=== PATIENT | female | born 1950 | race Caucasian/White ===

== ENCOUNTER 2019-04-15 12:34 | Emergency (ER) | payer OTHER ==
--- NOTE | 2019-04-15 13:53 | RAD REPORT ---
EXAM DESCRIPTION: RAD - Hand Right 2 View - 04/15/2019 1:33 pm CLINICAL HISTORY: Right hand pain FINDINGS: No fracture or dislocation is seen. Limited two view series. No bony destructive lesion
[2019-04-15] MEDS ORDERED: CLINDAMYCIN 900MG/D5W 900 MG/50 ML IVPB IV ONE (13:55)
[2019-04-15] MEDS ORDERED: KETOROLAC 30 MG/ML INJ ONE (13:55)
[2019-04-15] MEDS ORDERED: CEFAZOLIN/SWI 1gm 1 GM/10 ML SYR ONE (13:56)
[2019-04-15 14:09] LABS: Absolute Lymphocytes (CBC) 1.3 K/uL (0.7-4.9); Basophils % 0.5 % (0-1.3); Eosinophils % 1.9 % (0-4.4); Hematocrit 41.4 % (36.0-45.0); MPV 10.9 fL (7.6-11.3); Monocytes % 5.8 % (3.3-12.3); RBC Red Blood Cell Count 4.76 M/uL (3.86-4.86)
[2019-04-15] MEDS ORDERED: CEPHALEXIN 250 MG CAP ONE (14:10)
[2019-04-15 14:18] LABS: Albumin 3.2 g/dL (3.4-5.0); Bilirubin Total 0.3 mg/dL (0.2-1.0); Potassium 4.5 mmol/L (3.5-5.1); Protein, Total 7.4 g/dL (6.4-8.2)
--- NOTE | 2019-04-15 15:11 | EDPHYS ---
Physician Documentation [facility] Name: Nikkie Ferrera Age: 68 yrs Sex: Female : 1950 Arrival Date: 04/15/2019 Time: 12:37 Bed 23 Private MD: ED Physician Andrez Becerra HPI: 04/15 13:16 This 68 yrs old Female presents to ER via Ambulatory with complaints of Hand parviz Swelling. 13:16 The patient or guardian reports decreased range of motion, pain, swelling, tenderness. parviz The complaints affect the MCP of right middle finger. Context: The problem was sustained at an unknown location. Onset: The symptoms/episode began/occurred 3 day(s) ago. Associated signs and symptoms: The patient has no apparent associated signs or symptoms. Severity of symptoms: At their worst the symptoms were mild, moderate, in the emergency department the symptoms are unchanged. Historical: - Allergies: 12:48 Lidocaine; aa5 12:48 PENICILLINS; aa5 12:48 Sulfa (Sulfonamide Antibiotics); aa5 12:48 Codeine; aa5 12:48 Morphine; aa5 - Home Meds: 14:11 Novolin N 100 unit/mL Sub-Q susp [Active]; Novolin R Sub-Q [Active]; amiodarone 100 mg ca1 Oral tab 1 tab once daily [Active]; amlodipine 5 mg tab 1 tab once daily [Active]; losartan 100 mg oral tab 1 tab once daily [Active]; furosemide 80 mg Oral tab 1 tab 2 times per day [Active]; losartan 50 mg oral tab 1 tab once daily [Active]; Xarelto 20 mg oral tab 1 tab once daily [Active]; levothyroxine 25 mcg tab 1 tab once daily [Active]; 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 Thyroid 60 mg oral tab twice a day [Active]; gabapentin 100 mg oral cap 2 caps twice a day [Active]; meclizine 25 mg Oral tab 1 tab 3 times per day for Vertigo [Active]; 14:29 Metalazone 2.5 mg 4 tabs in AM for urinary retention [Active]; montelukast 10 mg oral ca1 tab 1 tab once daily [Active]; benzonatate 100 mg oral cap 1 cap 3 times per day for Cough [Active]; ibuprofen 800 mg Oral tab as needed [Active]; fluconazole 200 mg Oral tab 1 tab as needed [Active]; aspirin 81 mg Oral TbEC 1 tab once daily [Active]; magnesium oxide 400 mg Oral tab twice a day [Active]; Vitamin B-12 1,000 mcg Oral tab [Active]; Vitamin B-6 Oral [Active]; Vitamin D3 500 units daily [Active]; Tom5 - Calcium 750mg three times a day [Active]; - PMHx: 12:48 Diabetes - IDDM; Atrial Fib; CHF; Thyroid problem; neuropathy; Hypertension; aa5 - Immunization history:: Adult Immunizations up to date. - Social history:: Smoking status: Patient/guardian denies using tobacco. - Ebola Screening: : No symptoms or risks identified at this time. - Family history:: not pertinent. ROS: 13:16 Constitutional: Negative for fever, chills, and weight loss, Eyes: Negative for injury, parviz pain, redness, and discharge, ENT: Negative for injury, pain, and discharge, Neck: Negative for injury, pain, and swelling, Cardiovascular: Negative for chest pain, palpitations, and edema, Respiratory: Negative for shortness of breath, cough, wheezing, and pleuritic chest pain, Abdomen/GI: Negative for abdominal pain, nausea, vomiting, diarrhea, and constipation, Back: Negative for injury and pain, : Negative for injury, bleeding, discharge, and swelling, Skin: Negative for injury, rash, and discoloration, Neuro: Negative for headache, weakness, numbness, tingling, and seizure, Psych: Negative for depression, anxiety, suicide ideation, homicidal ideation, and hallucinations, Allergy/Immunology: Negative for hives, rash, and allergies, Endocrine: Negative for neck swelling, polydipsia, polyuria, polyphagia, and marked weight changes, Hematologic/Lymphatic: Negative for swollen nodes, abnormal bleeding, and unusual bruising. 13:16 MS/extremity: Positive for decreased range of motion, erythema, pain, swelling, tenderness, of the dorsal aspect of proximal phalanx of right middle finger and dorsum of right hand. Exam: 13:16 Constitutional: This is a well developed, well nourished patient who is awake, alert, parviz and in no acute distress. Head/Face: Normocephalic, atraumatic. Eyes: Pupils equal round and reactive to light, extra-ocular motions intact. Lids and lashes normal. Conjunctiva and sclera are non-icteric and not injected. Cornea within normal limits. Periorbital areas with no swelling, redness, or edema. ENT: Nares patent. No nasal discharge, no septal abnormalities noted. Tympanic membranes are normal and external auditory canals are clear. Oropharynx with no redness, swelling, or masses, exudates, or evidence of obstruction, uvula midline. Mucous membranes moist. Neck: Trachea midline, no thyromegaly or masses palpated, and no cervical lymphadenopathy. Supple, full range of motion without nuchal rigidity, or vertebral point tenderness. No Meningismus. Chest/axilla: Normal chest wall appearance and motion. Nontender with no deformity. No lesions are appreciated. Cardiovascular: Regular rate and rhythm with a normal S1 and S2. No gallops, murmurs, or rubs. Normal PMI, no JVD. No pulse deficits. Respiratory: Lungs have equal breath sounds bilaterally, clear to auscultation and percussion. No rales, rhonchi or wheezes noted. No increased work of breathing, no retractions or nasal flaring. Abdomen/GI: Soft, non-tender, with normal bowel sounds. No distension or tympany. No guarding or rebound. No evidence of tenderness throughout. Back: No spinal tenderness. No costovertebral tenderness. Full range of motion. Neuro: Awake and alert, GCS 15, oriented to person, place, time, and situation. Cranial nerves II-XII grossly intact. Motor strength 5/5 in all extremities. Sensory grossly intact. Cerebellar exam normal. Normal gait. Psych: Awake, alert, with orientation to person, place and time. Behavior, mood, and affect are within normal limits. 13:16 Musculoskeletal/extremity: ROM: limited active range of motion, limited passive range of motion, limited active range of motion due to pain, limited passive range of motion due to pain, Circulation is intact in all extremities. Compartment Syndrome exam of affected extremity: is normal. Joints: limited range of motion, pain at rest, painful range of motion, swelling, tenderness. Vital Signs: 12:48 BP 207 / 82; Pulse 63; Resp 16 S; Temp 97.7(O); Pulse Ox 96% on R/A; Weight 161.03 kg aa5 (R); Height 5 ft. 8 in. (172.72 cm) (R); Pain 8/10; 13:52 BP 162 / 60; Pulse 52; Resp 18 S; Pulse Ox 95% on R/A; ca1 14:21 BP 158 / 56; Pulse 51; Resp 17 S; Pulse Ox 95% on R/A; ca1 15:30 BP 161 / 54; Pulse 54; Resp 17 S; Temp 98(O); Pulse Ox 95% on R/A; ca1 12:48 Body Mass Index 53.98 (161.03 kg, 172.72 cm) aa5 MDM: 12:50 Patient medically screened. [facility] 04/15 13:16 Order name: CBC with Diff; Complete Time: 15:05 [facility] 04/15 13:16 Order name: Comprehensive Metabolic Panel; Complete Time: 15:05 [facility] 04/15 13:16 Order name: Sed Rate; Complete Time: 15:05 [facility] 04/15 13:16 Order name: Hand Right 2 View XRAY; Complete Time: 15:05 [facility] 04/15 13:16 Order name: Ice pack; Complete Time: 13:40 [facility] 04/15 13:34 Order name: IV Saline Lock; Complete Time: 13:34 ca1 Administered Medications: 13:40 Drug: TORadol 30 mg Route: IVP; Site: left antecubital; ca1 15:00 Follow up: Response: No adverse reaction ca1 13:45 Drug: Ancef 1 grams Route: IVPB; Site: left antecubital; ca1 15:00 Follow up: Response: No adverse reaction; IV Status: Completed infusion ca1 13:51 Drug: Clindamycin 900 mg Route: IVPB; Infused Over: 30 mins; Site: left antecubital; ca1 14:20 Follow up: Response: No adverse reaction; IV Status: Completed infusion ca1 13:56 Drug: KeFLEX 500 mg Route: PO; ca1 15:00 Follow up: Response: No adverse reaction ca1 15:00 Follow up: Response: No adverse reaction ca1 Disposition: 04/15/19 15:11 Discharged to Home. Impression: Cellulitis and acute lymphangitis of other parts of limb, Lymphangitis - ascending, Type 1 diabetes mellitus. - Condition is Fair. - Discharge Instructions: Cellulitis, Adult, [id number], Lymphangitis, Adult. - Prescriptions for Clindamycin HCl 300 mg Oral Capsule - take 1 capsule by ORAL route every 6 hours for 7 days; 28 capsule. Keflex 500 mg Oral Capsule - take 1 capsule by ORAL route every 6 hours for 7 days; 28 capsule. Motrin IB 200 mg Oral Tablet - take 1 tablet by ORAL route every 6 hours As needed as needed with food; 20 tablet. - Medication Reconciliation Form, Thank You Letter, Antibiotic Education, Prescription Opioid Use form. - Follow up: Private Physician; When: 2 - 3 days; Reason: Recheck today's complaints, Continuance of care, Re-evaluation by your physician. Follow up: Shiva Perez; When: 2 - 3 days; Reason: Recheck today's complaints, Continuance of care, Re-evaluation by your physician. - Problem is new. - Symptoms have improved. Signatures: Dispatcher [employer] EDMS Andrez Becerra MD MD cha Calderon, Audri RN RN aa5 Alexsandra Sequeira RN RN ca1 Corrections: (The following items were deleted from the chart) 15:42 15:11 04/15/2019 15:11 Discharged to Home. Impression: Cellulitis and acute ca1 lymphangitis of other parts of limb; Lymphangitis - ascending; Type 1 diabetes mellitus. Condition is Fair. Discharge Instructions: Cellulitis, Adult, [id number], Lymphangitis, Adult. Prescriptions for Clindamycin HCl 300 mg Oral Capsule - take 1 capsule by ORAL route every 6 hours for 7 days; 28 capsule, Keflex 500 mg Oral Capsule - take 1 capsule by ORAL route every 6 hours for 7 days; 28 capsule, Motrin IB 200 mg Oral Tablet - take 1 tablet by ORAL route every 6 hours As needed as needed with food; 20 tablet. and Forms are Medication Reconciliation Form, Thank You Letter, Antibiotic Education, Prescription Opioid Use. Follow up: Private Physician; When: 2 - 3 days; Reason: Recheck today's complaints, Continuance of care, Re-evaluation by your physician. Follow up: Shiva Perez; When: 2 - 3 days; Reason: Recheck today's complaints, Continuance of care, Re-evaluation by your physician. Problem is new. Symptoms have improved. parviz
--- NOTE | 2019-04-15 15:11 | ER ---
Nurse's Notes [facility] Name: Nikkie Ferrera Age: 68 yrs Sex: Female : 1950 Arrival Date: 04/15/2019 Time: 12:37 Bed 23 Private MD: Diagnosis: Cellulitis and acute lymphangitis of other parts of limb;Lymphangitis-ascending;Type 1 diabetes mellitus Presentation: 04/15 12:45 Presenting complaint: Patient states: "my right hand is swollen and red since aa5 yesterday". Transition of care: patient was not received from another setting of care. Onset of symptoms was April 2019. Risk Assessment: Do you want to hurt yourself or someone else? Patient reports no desire to harm self or others. Initial Sepsis Screen: Does the patient meet any 2 criteria? No. Patient's initial sepsis screen is negative. Does the patient have a suspected source of infection? No. Patient's initial sepsis screen is negative. Care prior to arrival: None. 12:45 Method Of Arrival: Ambulatory aa5 12:45 Acuity: KRISTIAN 3 aa5 Historical: - Allergies: 12:48 Lidocaine; aa5 12:48 PENICILLINS; aa5 12:48 Sulfa (Sulfonamide Antibiotics); aa5 12:48 Codeine; aa5 12:48 Morphine; aa5 - Home Meds: 14:11 Novolin N 100 unit/mL Sub-Q susp [Active]; Novolin R Sub-Q [Active]; amiodarone 100 mg ca1 Oral tab 1 tab once daily [Active]; amlodipine 5 mg tab 1 tab once daily [Active]; losartan 100 mg oral tab 1 tab once daily [Active]; furosemide 80 mg Oral tab 1 tab 2 times per day [Active]; losartan 50 mg oral tab 1 tab once daily [Active]; Xarelto 20 mg oral tab 1 tab once daily [Active]; levothyroxine 25 mcg tab 1 tab once daily [Active]; 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 oral tab twice a day [Active]; gabapentin 100 mg oral cap 2 caps twice a day [Active]; meclizine 25 mg Oral tab 1 tab 3 times per day for Vertigo [Active]; 14:29 Metalazone 2.5 mg 4 tabs in AM for urinary retention [Active]; montelukast 10 mg oral ca1 tab 1 tab once daily [Active]; benzonatate 100 mg oral cap 1 cap 3 times per day for Cough [Active]; ibuprofen 800 mg Oral tab as needed [Active]; fluconazole 200 mg Oral tab 1 tab as needed [Active]; aspirin 81 mg Oral TbEC 1 tab once daily [Active]; magnesium oxide 400 mg Oral tab twice a day [Active]; Vitamin B-12 1,000 mcg Oral tab [Active]; Vitamin B-6 Oral [Active]; Vitamin D3 500 units daily [Active]; Tom5 - Calcium 750mg three times a day [Active]; - PMHx: 12:48 Diabetes - IDDM; Atrial Fib; CHF; Thyroid problem; neuropathy; Hypertension; aa5 - Immunization history:: Adult Immunizations up to date. - Social history:: Smoking status: Patient/guardian denies using tobacco. - Ebola Screening: : No symptoms or risks identified at this time. - Family history:: not pertinent. Screenin:56 Abuse screen: Denies threats or abuse. Denies injuries from another. Nutritional ca1 screening: No deficits noted. Tuberculosis screening: No symptoms or risk factors identified. Fall Risk Ambulatory Aid- Crutches/Cane/Walker (15 pts). Gait- Impaired (20 pts.). Assessment: 12:56 General: Appears in no apparent distress. comfortable, Behavior is calm, cooperative, ca1 appropriate for age. Pain: Complains of pain in right hand Pain radiates to right arm Pain currently is 7 out of 10 on a pain scale. Pain began 1 day ago. Is intermittent, Aggravated by increased activity, repositioning. Neuro: Level of Consciousness is awake, alert, obeys commands, Oriented to person, place, time, situation. Cardiovascular: Heart tones S1 S2 present Capillary refill < 3 seconds Patient's skin is warm and dry. Respiratory: Airway is patent Respiratory effort is even, unlabored, Respiratory pattern is regular, symmetrical, Breath sounds are clear bilaterally. GI: Abdomen is round non-distended, Bowel sounds present X 4 quads. Abd is soft and non tender X 4 quads. : No deficits noted. No signs and/or symptoms were reported regarding the genitourinary system. EENT: No deficits noted. No signs and/or symptoms were reported regarding the EENT system. Derm: Skin is intact, is healthy with good turgor, Skin is pink, warm \\T\\ dry. Musculoskeletal: Circulation, motion, and sensation intact. Capillary refill < 3 seconds, Range of motion: limited in right wrist, MCP of right index finger, MCP of right middle finger, MCP of right ring finger and MCP of right little finger Swelling present in right hand. 13:52 Reassessment: Patient appears in no apparent distress at this time. Patient and/or ca1 family updated on plan of care and expected duration. Pain level reassessed. Patient is alert, oriented x 3, equal unlabored respirations, skin warm/dry/pink. 14:50 Reassessment: Patient appears in no apparent distress at this time. Patient and/or ca1 family updated on plan of care and expected duration. Pain level reassessed. Patient is alert, oriented x 3, equal unlabored respirations, skin warm/dry/pink. 15:30 Reassessment: Patient appears in no apparent distress at this time. Patient is alert, ca1 oriented x 3, equal unlabored respirations, skin warm/dry/pink. Vital Signs: 12:48 BP 207 / 82; Pulse 63; Resp 16 S; Temp 97.7(O); Pulse Ox 96% on R/A; Weight 161.03 kg aa5 (R); Height 5 ft. 8 in. (172.72 cm) (R); Pain 8/10; 13:52 BP 162 / 60; Pulse 52; Resp 18 S; Pulse Ox 95% on R/A; ca1 14:21 BP 158 / 56; Pulse 51; Resp 17 S; Pulse Ox 95% on R/A; ca1 15:30 BP 161 / 54; Pulse 54; Resp 17 S; Temp 98(O); Pulse Ox 95% on R/A; ca1 12:48 Body Mass Index 53.98 (161.03 kg, 172.72 cm) aa5 ED Course: 12:37 Patient arrived in ED. as 12:45 Arm band placed on. aa5 12:46 Triage completed. aa5 12:50 Alexsandra Sequeira RN is Primary Nurse. ca1 12:50 Andrez Becerra MD is Attending Physician. [facility] 12:56 Patient has correct armband on for positive identification. Bed in low position. Call ca1 light in reach. Side rails up X 1. Pulse ox on. NIBP on. 12:56 No provider procedures requiring assistance completed. ca1 13:30 Hand Right 2 View XRAY In Process Unspecified. EDMS 13:39 Initial lab(s) drawn, by me, sent to lab. Inserted saline lock: 20 gauge in left lt1 antecubital area, using aseptic technique. 15:10 Shiva Perez MD is Referral Physician. parviz 15:30 IV discontinued, intact, bleeding controlled, No redness/swelling at site. Pressure ca1 dressing applied. Administered Medications: 13:40 Drug: TORadol 30 mg Route: IVP; Site: left antecubital; ca1 15:00 Follow up: Response: No adverse reaction ca1 13:45 Drug: Ancef 1 grams Route: IVPB; Site: left antecubital; ca1 15:00 Follow up: Response: No adverse reaction; IV Status: Completed infusion ca1 13:51 Drug: Clindamycin 900 mg Route: IVPB; Infused Over: 30 mins; Site: left antecubital; ca1 14:20 Follow up: Response: No adverse reaction; IV Status: Completed infusion ca1 13:56 Drug: KeFLEX 500 mg Route: PO; ca1 15:00 Follow up: Response: No adverse reaction ca1 15:00 Follow up: Response: No adverse reaction ca1 Outcome: 15:11 Discharge ordered by . parviz 15:30 Discharged to home via wheelchair, with family. ca1 15:30 Condition: stable 15:30 Discharge instructions given to patient, Instructed on discharge instructions, follow up and referral plans. medication usage, Demonstrated understanding of instructions, follow-up care, medications, Prescriptions given X 3. 15:42 Patient left the ED. ca1 Signatures: Dispatcher [employer] EDNC Andrez Becerra MD MD cha Martinez, Amelia as Calderon, Audri, RN RN aa5 Alexsandra Sequeira RN RN ca1 Lopez, Kemi lt
[2019-04-15 16:32] VITALS: O2SAT 95
[2019-04-15 16:34] VITALS: BP 161/54; TEMP 98
== END 2019-04-15 15:42 | disposition home or self-care (01) ==
LOC: ER 12:34
DX: L03.113 Cellulitis of right upper limb (principal); L03.123 Acute lymphangitis of right upper limb; E10.9 Type 1 diabetes mellitus without complications; I10 Essential (primary) hypertension; I48.91 Unspecified atrial fibrillation; E07.9 Disorder of thyroid, unspecified; I50.9 Heart failure, unspecified; Z79.01 Long term (current) use of anticoagulants; Z79.82 Long term (current) use of aspirin; Z79.4 Long term (current) use of insulin
CPT/HCPCS: 96365; 85025; 36415; 85652; 80053; 73120; 96375; 99284; J0690

== ENCOUNTER 2019-11-07 05:50 | Emergency (ER) | payer OTHER ==
[2019-11-07] MEDS ORDERED: ONDANSETRON 4 MG (ODT) TAB ONE (06:16)
[2019-11-07] MEDS ORDERED: TRAMADOL HCL 50 MG TAB ONE (06:17)
[2019-11-07 06:52] LABS: Absolute Lymphocytes (CBC) 0.9 K/uL (0.7-4.9); Basophils % 0.3 % (0-1.3); Hematocrit 41.1 % (36.0-45.0); Lymphocytes % 8.1 % (15.3-44.8); MPV 11.6 fL (7.6-11.3)
[2019-11-07] MEDS ORDERED: KETOROLAC 30 MG/ML INJ ONE (06:53)
[2019-11-07 07:06] LABS: Potassium 4.4 mmol/L (3.5-5.1)
--- NOTE | 2019-11-07 08:05 | ER ---
Nurse's Notes [facility] Name: Nikkie Ferrera Age: 69 yrs Sex: Female : 1950 Arrival Date: 11/07/2019 Time: 05:50 Bed 5 Private MD: Diagnosis: Pain in left arm;Local infection of the skin and subcutaneous tissue, unspecified Presentation: 11/07 05:56 Presenting complaint: EMS states: Called for pain to left arm; Patient had second lp1 Shingles vaccine on Friday, since then the pain has been worsening; States pain is now radiating to left forearm and left hand. Transition of care: patient was not received from another setting of care. Onset of symptoms was November 07, 2019. Risk Assessment: Do you want to hurt yourself or someone else? Patient reports no desire to harm self or others. Initial Sepsis Screen: Does the patient meet any 2 criteria? No. Patient's initial sepsis screen is negative. Does the patient have a suspected source of infection? No. Patient's initial sepsis screen is negative. Care prior to arrival: Glucose check: 259. 05:56 Method Of Arrival: EMS: [facility] lp1 05:56 Acuity: KRISTIAN 3 fc Historical: - Allergies: 06:06 PENICILLINS; lp1 06:06 Lidocaine; lp1 06:06 Iodinated Contrast Media - IV Dye; lp1 06:06 Sulfa (Sulfonamide Antibiotics); lp1 06:06 Morphine; lp1 06:06 Codeine; lp1 - Home Meds: 06:06 Novolin N 100 unit/mL Sub-Q susp [Active]; Novolog 100 unit/mL Sub-Q soln [Active]; lp1 amiodarone 100 mg Oral tab 1 tab once daily [Active]; amlodipine 5 mg tab 1 tab once daily [Active]; losartan 100 mg Oral tab 1 tab once daily [Active]; furosemide 80 mg Oral tab 1 tab 2 times per day [Active]; lovastatin 20 mg Oral tab 1 tab once daily [Active]; Xarelto 20 mg Oral tab 1 tab once daily [Active]; levothyroxine 25 mcg tab 1 tab once daily [Active]; 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 60 mg Oral tab twice a day [Active]; gabapentin 100 mg Oral cap 2 caps twice a day [Active]; meclizine 25 mg Oral tab 1 tab 3 times per day for Vertigo [Active]; Metalazone 2.5 mg 4 tabs IN AM for urinary retention [Active]; montelukast 10 mg Oral tab 1 tab once daily [Active]; benzonatate 100 mg Oral cap 1 cap 3 times per day for Cough [Active]; fluconazole 200 mg Oral tab 1 tab as needed [Active]; aspirin 81 mg Oral TbEC 1 tab once daily [Active]; magnesium oxide 400 mg Oral tab twice a day [Active]; Vitamin B-6 Oral [Active]; Vitamin B-12 1,000 mcg Oral tab daily [Active]; Vitamin D3 5,000 unit oral tab daily [Active]; - PMHx: 06:06 Atrial Fib; Diabetes - IDDM; Cellulitis; CHF; Thyroid problem; Hypertension; lp1 neuropathy; Diabetic retinopathy; - PSHx: 06:06 Cholecystectomy; Cataracts surgery; Tonsillectomy; Jaw surgery; lp1 - Immunization history:: Adult Immunizations up to date. - Coronavirus screen:: The patient has NOT traveled to [place], [place], or [place] in the past 14 days. The patient has NOT had contact with known/suspected case of Coronavirus?. - Social history:: Smoking status: Patient denies any tobacco usage or history of. - Ebola Screening: : No symptoms or risks identified at this time. Screenin:04 Abuse screen: Denies threats or abuse. Denies injuries from another. Nutritional rv screening: No deficits noted. Tuberculosis screening: No symptoms or risk factors identified. Fall Risk None identified. Assessment: 06:03 General: Appears in no apparent distress. Pain: Complains of pain in left arm. Neuro: rv Level of Consciousness is awake, alert, obeys commands, Oriented to person, place, time, situation. Cardiovascular: Patient's skin is warm and dry. Respiratory: Airway is patent. Derm: Skin is intact. Musculoskeletal: Swelling absent Reports pain in left arm ,LEFT UPPER ARM IS WARM TO TOUCH. 07:00 Reassessment: Patient appears in no apparent distress at this time. No changes from jl7 previously documented assessment. Patient and/or family updated on plan of care and expected duration. Pain level reassessed. Patient is alert, oriented x 3, equal unlabored respirations, skin warm/dry/pink. 08:00 Reassessment: Patient appears in no apparent distress at this time. Patient and/or jl7 family updated on plan of care and expected duration. Pain level reassessed. Patient is alert, oriented x 3, equal unlabored respirations, skin warm/dry/pink. pain decreased to a 6 or 7/10 now Patient states feeling better. Patient states symptoms have improved. Vital Signs: 05:58 BP 141 / 66; Pulse 73; Resp 20; Temp 99.6(O); Pulse Ox 100% on R/A; Weight 156.49 kg lp1 (R); Height 5 ft. 8 in. (172.72 cm); Pain 9/10; 08:00 BP 139 / 68; Pulse 73; Resp 16 S; Pulse Ox 100% on R/A; jl7 05:58 Body Mass Index 52.46 (156.49 kg, 172.72 cm) lp1 ED Course: 05:50 Patient arrived in ED. ds1 05:57 Triage completed. lp1 05:58 Arm band placed on. lp1 06:03 Rob Arora RN is Primary Nurse. rv 06:04 Patient has correct armband on for positive identification. Pulse ox on. NIBP on. rv 06:12 Tiffanie Meza FNP-C is PHCP. kb 06:12 Hesham Bone MD is Attending Physician. kb 06:35 Inserted saline lock: 20 gauge in right antecubital area, using aseptic technique. rv Blood collected. 06:35 First set of blood cultures drawn by me. rv 08:04 Ultrasound completed. Patient tolerated well. 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 sg3 08:08 US Extremity Venous Unilateral Ltd In Process Unspecified. EDMS 08:18 Sling applied to left arm. jl7 08:22 No provider procedures requiring assistance completed. IV discontinued, intact, jl7 bleeding controlled, No redness/swelling at site. Pressure dressing applied. Administered Medications: 06:15 Drug: Zofran 4 mg Route: PO; rv 06:55 Follow up: Response: No adverse reaction vc 06:15 Drug: traMADol 50 mg {Note: RASS 0.} Route: PO; rv 06:54 Follow up: Response: No adverse reaction vc 06:54 Drug: TORadol - Ketorolac 15 mg Route: IVP; Site: right antecubital; vc 08:19 Follow up: Response: No adverse reaction; Pain is decreased jl7 Outcome: 08:04 Discharge ordered by . magaly 08:18 Discharged to home via wheelchair. jl7 08:18 Condition: stable 08:18 Discharge instructions given to patient, family, Instructed on discharge instructions, follow up and referral plans. medication usage, Demonstrated understanding of instructions, follow-up care, medications, Prescriptions given X 4. 08:23 Patient left the ED. jl7 Signatures: Dispatcher [employer] EDSD Tiffanie Meza, START UP SPECIALIST-C START UP SPECIALIST-Tammy Rendon RN RN Dara Ignacio ds1 Dasha Seals RN RN lp1 Abdirahman Ramirez RN RN jl7 Kyung Pruett sg3 Rob Arora RN RN rv Delfina Griffith RN RN vc Corrections: (The following items were deleted from the chart) 07:03 05:56 Acuity: KRISTIAN 4 lp1
--- NOTE | 2019-11-07 08:05 | EDPHYS ---
Physician Documentation [facility] Name: Nikkie Ferrera Age: 69 yrs Sex: Female : 1950 Arrival Date: 11/07/2019 Time: 05:50 Bed 5 Private MD: ED Physician Hesham Bone HPI: 11/07 06:19 This 69 yrs old Female presents to ER via EMS with complaints of L Arm Pain. kb 06:19 The patient or guardian complains of decreased range of motion, pain, that is acute, kb tenderness. The complaints affect the left upper arm. Context: The problem was sustained at a pharmacy, resulted from shingles vaccination. Onset: The symptoms/episode began/occurred 7 day(s) ago. Treatment prior to arrival includes: prescription medications, gabapentin. Modifying factors: The symptoms are alleviated by nothing. the symptoms are aggravated by movement. Associated signs and symptoms: Pertinent positives: decreased range of motion, erythema, pain, warmth. Severity of symptoms: At their worst the symptoms were moderate, in the emergency department the symptoms are unchanged. The patient has not experienced similar symptoms in the past. The patient has not recently seen a physician. Pt reports she got her second shingles shot on Friday. Had some redness to area for a couple of days, then the redness went away, but the warmth to entire arm remained. States it has been painful since the injection. Reports pain radiates down arm to hand and has caused numbness to fifth digit once. Reports increased pain that radiates up arm with flexion and extension on hand. Denies any other injury or trauma. . Historical: - Allergies: 06:06 PENICILLINS; lp1 06:06 Lidocaine; lp1 06:06 Iodinated Contrast Media - IV Dye; lp1 06:06 Sulfa (Sulfonamide Antibiotics); lp1 06:06 Morphine; lp1 06:06 Codeine; lp1 - Home Meds: 06:06 Novolin N 100 unit/mL Sub-Q susp [Active]; Novolog 100 unit/mL Sub-Q soln [Active]; lp1 amiodarone 100 mg Oral tab 1 tab once daily [Active]; amlodipine 5 mg tab 1 tab once daily [Active]; losartan 100 mg Oral tab 1 tab once daily [Active]; furosemide 80 mg Oral tab 1 tab 2 times per day [Active]; lovastatin 20 mg Oral tab 1 tab once daily [Active]; Xarelto 20 mg Oral tab 1 tab once daily [Active]; levothyroxine 25 mcg tab 1 tab once daily [Active]; INSURANCE RATER Thyroid 60 mg Oral tab twice a day [Active]; gabapentin 100 mg Oral cap 2 caps twice a day [Active]; meclizine 25 mg Oral tab 1 tab 3 times per day for Vertigo [Active]; Metalazone 2.5 mg 4 tabs IN AM for urinary retention [Active]; montelukast 10 mg Oral tab 1 tab once daily [Active]; benzonatate 100 mg Oral cap 1 cap 3 times per day for Cough [Active]; fluconazole 200 mg Oral tab 1 tab as needed [Active]; aspirin 81 mg Oral TbEC 1 tab once daily [Active]; magnesium oxide 400 mg Oral tab twice a day [Active]; Vitamin B-6 Oral [Active]; Vitamin B-12 1,000 mcg Oral tab daily [Active]; Vitamin D3 5,000 unit oral tab daily [Active]; - PMHx: 06:06 Atrial Fib; Diabetes - IDDM; Cellulitis; CHF; Thyroid problem; Hypertension; lp1 neuropathy; Diabetic retinopathy; - PSHx: 06:06 Cholecystectomy; Cataracts surgery; Tonsillectomy; Jaw surgery; lp1 - Immunization history:: Adult Immunizations up to date. - Coronavirus screen:: The patient has NOT traveled to [place], [place], or [place] in the past 14 days. The patient has NOT had contact with known/suspected case of Coronavirus?. - Social history:: Smoking status: Patient denies any tobacco usage or history of. - Ebola Screening: : No symptoms or risks identified at this time. ROS: 06:18 Constitutional: Negative for fever, chills, and weight loss, ENT: Negative for injury, kb pain, and discharge, Neck: Negative for injury, pain, and swelling, Cardiovascular: Negative for chest pain, palpitations, and edema, Respiratory: Negative for shortness of breath, cough, wheezing, and pleuritic chest pain, Abdomen/GI: Negative for abdominal pain, nausea, vomiting, diarrhea, and constipation, Back: Negative for injury and pain, Neuro: Negative for headache, weakness, numbness, tingling, and seizure. 06:18 MS/extremity: Positive for pain, of the left arm. 06:18 Skin: Positive for of the left arm, warmth. Exam: 06:18 Constitutional: This is a well developed, well nourished patient who is awake, alert, kb and in no acute distress. Head/Face: Normocephalic, atraumatic. ENT: Nares patent. No nasal discharge, no septal abnormalities noted. Tympanic membranes are normal and external auditory canals are clear. Oropharynx with no redness, swelling, or masses, exudates, or evidence of obstruction, uvula midline. Mucous membranes moist. Neck: Trachea midline, no thyromegaly or masses palpated, and no cervical lymphadenopathy. Supple, full range of motion without nuchal rigidity, or vertebral point tenderness. No Meningismus. Chest/axilla: Normal chest wall appearance and motion. Nontender with no deformity. No lesions are appreciated. Cardiovascular: Regular rate and rhythm with a normal S1 and S2. No gallops, murmurs, or rubs. Normal PMI, no JVD. No pulse deficits. Respiratory: Lungs have equal breath sounds bilaterally, clear to auscultation and percussion. No rales, rhonchi or wheezes noted. No increased work of breathing, no retractions or nasal flaring. Abdomen/GI: Soft, non-tender, with normal bowel sounds. No distension or tympany. No guarding or rebound. No evidence of tenderness throughout. Back: No spinal tenderness. No costovertebral tenderness. Full range of motion. Neuro: Awake and alert, GCS 15, oriented to person, place, time, and situation. Cranial nerves II-XII grossly intact. Motor strength 5/5 in all extremities. Sensory grossly intact. Cerebellar exam normal. Normal gait. 06:18 Musculoskeletal/extremity: Extremities: grossly normal except: noted in the left arm: decreased ROM, pain, tenderness, warmth, ROM: limited active range of motion due to pain, in the left arm, Circulation is intact in all extremities. Sensation intact. Vital Signs: 05:58 BP 141 / 66; Pulse 73; Resp 20; Temp 99.6(O); Pulse Ox 100% on R/A; Weight 156.49 kg lp1 (R); Height 5 ft. 8 in. (172.72 cm); Pain 9/10; 08:00 BP 139 / 68; Pulse 73; Resp 16 S; Pulse Ox 100% on R/A; jl7 05:58 Body Mass Index 52.46 (156.49 kg, 172.72 cm) lp1 MDM: 06:12 Patient medically screened. kb 06:18 Data reviewed: vital signs, nurses notes. Data interpreted: Pulse oximetry: on room air kb is 100 %. Interpretation: normal. 08:03 Counseling: I had a detailed discussion with the patient and/or guardian regarding: the kb historical points, exam findings, and any diagnostic results supporting the discharge/admit diagnosis, lab results, radiology results, the need for outpatient follow up, a family practitioner, to return to the emergency department if symptoms worsen or persist or if there are any questions or concerns that arise at home. 11/07 06:28 Order name: CBC with Diff kb 11/07 06:28 Order name: Basic Metabolic Panel; Complete Time: 07:11 kb 11/07 06:13 Order name: US Extremity Venous Unilateral Ltd kb 11/07 06:28 Order name: Procalcitonin; Complete Time: 07:33 kb 11/07 06:30 Order name: Blood Culture Adult (2) kb 11/07 06:28 Order name: IV Start; Complete Time: 06:56 kb 11/07 08:14 Order name: Sling; Complete Time: 08:19 kb Administered Medications: 06:15 Drug: Zofran 4 mg Route: PO; rv 06:55 Follow up: Response: No adverse reaction vc 06:15 Drug: traMADol 50 mg {Note: RASS 0.} Route: PO; rv 06:54 Follow up: Response: No adverse reaction vc 06:54 Drug: TORadol - Ketorolac 15 mg Route: IVP; Site: right antecubital; vc 08:19 Follow up: Response: No adverse reaction; Pain is decreased jl7 Disposition: 19:00 Co-signature as Attending Physician, Hesham Bone MD. rn Disposition: 11/07/19 08:04 Discharged to Home. Impression: Pain in left arm, Local infection of the skin and subcutaneous tissue, unspecified. - Condition is Stable. - Discharge Instructions: Neuropathic Pain, Peripheral Neuropathy, Cellulitis, Adult, [id number]. - Prescriptions for Clindamycin HCl 300 mg Oral Capsule - take 1 capsule by ORAL route every 6 hours for 10 days; 40 capsule. Keflex 500 mg Oral Capsule - take 1 capsule by ORAL route every 8 hours for 10 days; 30 capsule. Zofran 4 mg Oral Tablet - take 1 tablet by ORAL route every 6 hours As needed; 20 tablet. Tramadol 50 mg Oral Tablet - take 1 tablet by ORAL route every 8 hours as needed; 12 tablet. - Medication Reconciliation Form, Thank You Letter, Antibiotic Education, Prescription Opioid Use form. - Follow up: Emergency Department; When: As needed; Reason: Worsening of condition. Follow up: Private Physician; When: 2 - 3 days; Reason: Recheck today's complaints, Continuance of care, Re-evaluation by your physician. Signatures: Dispatcher [employer] EDMS Tiffanie Meza, ART MUSEUM AIDE-C ART MUSEUM AIDE-Ckb Hesham Bone MD MD rn Pena, Laura RN RN lp1 Abdirahman Ramirez RN RN jl7 Rob Arora RN RN rv Delfina Griffith RN RN vc Corrections: (The following items were deleted from the chart) 08:23 08:04 11/07/2019 08:04 Discharged to Home. Impression: Pain in left arm; Local jl7 infection of the skin and subcutaneous tissue, unspecified. Condition is Stable. Forms are Medication Reconciliation Form, Thank You Letter, Antibiotic Education, Prescription Opioid Use. Follow up: Emergency Department; When: As needed; Reason: Worsening of condition. Follow up: Private Physician; When: 2 - 3 days; Reason: Recheck today's complaints, Continuance of care, Re-evaluation by your physician. kb
[2019-11-07 08:25] LABS: Blood Morphology Comment NOT SEEN (NOT SEEN); Platelet Estimate ADEQ; Urine White Blood Cell Casts OK
[2019-11-07 08:30] VITALS: TEMP 99.6; O2SAT 100
[2019-11-07 08:31] VITALS: BP 139/68
--- NOTE | 2019-11-07 08:39 | RAD REPORT ---
EXAM DESCRIPTION: USExtremity Venous Uni Ltd11/07/2019 8:07 am CLINICAL HISTORY: Left arm pain COMPARISON: None FINDINGS: The left internal jugular, left subclavian, left cephalic, left axillary, left brachial, l eft basilic, left ulnar and left radial veins are generally compressible and demonstrate augmentation . Doppler demonstrates good flow. IMPRESSION: No evidence of thrombus within the veins of the left upper extremity
== END 2019-11-07 08:23 | disposition home or self-care (01) ==
LOC: ER 05:50
DX: M79.602 Pain in left arm (principal); L08.9 Local infection of the skin and subcutaneous tissue, unspecified; I48.91 Unspecified atrial fibrillation; E07.9 Disorder of thyroid, unspecified; I10 Essential (primary) hypertension; E11.319 Type 2 diabetes mellitus with unspecified diabetic retinopathy without macular edema; Z79.4 Long term (current) use of insulin; I50.9 Heart failure, unspecified; E11.40 Type 2 diabetes mellitus with diabetic neuropathy, unspecified; Z88.0 Allergy status to penicillin; Z88.2 Allergy status to sulfonamides; Z88.6 Allergy status to analgesic agent; Z91.09 Other allergy status, other than to drugs and biological substances
CPT/HCPCS: 36415; 80048; 84145; 85025; 87040; 93971; 96374; 99284

== ENCOUNTER 2020-11-08 04:50 | Emergency (ER) | payer OTHER ==
[2020-11-08 05:40] LABS: Albumin 3.3 g/dL (3.4-5.0); Bilirubin Direct 0.1 mg/dL (0-0.2); Bilirubin Total 0.4 mg/dL (0.2-1.0); Potassium 3.4 mmol/L (3.5-5.1); Protein, Total 7.5 g/dL (6.4-8.2)
[2020-11-08 05:42] LABS: Absolute Lymphocytes (CBC) 1.8 K/uL (0.7-4.9); Basophils % 0.9 % (0-1.3); Hematocrit 40.1 % (36.0-45.0); Lymphocytes % 25.3 % (15.3-44.8); MPV 12.3 fL (7.6-11.3)
--- NOTE | 2020-11-08 06:13 | ER ---
Nurse's Notes [facility] Name: Nikkie Ferrera Age: 70 yrs Sex: Female : 1950 Arrival Date: 11/08/2020 Time: 04:52 Bed 6 Private MD: Diagnosis: Lymphedema, not elsewhere classified Presentation: 11/08 04:54 Ebola Screen: No symptoms or risks identified at this time. Risk Assessment: Do you ea want to hurt yourself or someone else? Patient reports no desire to harm self or others. Onset of symptoms was November 08, 2020. 04:54 Acuity: KRISTIAN 3 ea 04:59 Chief complaint: EMS states: Pt reports leg weeping that started two hours ago. ea Coronavirus screen: At this time, the client does not indicate any symptoms associated with coronavirus-19. Initial Sepsis Screen: Does the patient meet any 2 criteria? No. Patient's initial sepsis screen is negative. Does the patient have a suspected source of infection? No. Patient's initial sepsis screen is negative. 04:59 Method Of Arrival: EMS: [facility] ea 04:59 Method Of Arrival: EMS: [facility] ea Historical: - Allergies: 04:57 Codeine; ea 04:57 Iodinated Contrast Media - IV Dye; ea 04:57 Lidocaine; ea 04:57 Morphine; ea 04:57 PENICILLINS; ea 04:57 Sulfa (Sulfonamide Antibiotics); ea - Home Meds: 04:57 Xarelto 20 mg Oral tab 1 tab once daily [Active]; levothyroxine 25 mcg tab 1 tab once ea daily [Active]; Vitamin D3 5,000 unit Oral tab daily [Active]; Vitamin B-6 Oral [Active]; [employer] Thyroid 60 mg Oral tab twice a day [Active]; Vitamin B-12 1,000 mcg Oral tab daily [Active]; Novolin N 100 unit/mL Sub-Q susp [Active]; Novolog 100 unit/mL Sub-Q soln [Active]; losartan 100 mg Oral tab 1 tab once daily [Active]; magnesium oxide 400 mg Oral tab twice a day [Active]; meclizine 25 mg Oral tab 1 tab 3 times per day for Vertigo [Active]; lovastatin 20 mg Oral tab 1 tab once daily [Active]; Metalazone 2.5 mg 4 tabs IN AM for urinary retention [Active]; montelukast 10 mg Oral tab 1 tab once daily [Active]; gabapentin 100 mg Oral cap 2 caps twice a day [Active]; furosemide 80 mg Oral tab 1 tab 2 times per day [Active]; fluconazole 200 mg Oral tab 1 tab as needed [Active]; benzonatate 100 mg Oral cap 1 cap 3 times per day for Cough [Active]; aspirin 81 mg Oral TbEC 1 tab once daily [Active]; amlodipine 5 mg tab 1 tab once daily [Active]; amiodarone 100 mg Oral tab 1 tab once daily [Active]; 05:02 amiodarone 100 mg Oral tab 1 tab once daily [Active]; amlodipine 5 mg tab .5 tab once wh daily [Active]; losartan 100 mg Oral tab 1 tab once daily [Active]; lovastatin 20 mg Oral tab 1 tab once daily [Active]; Xarelto 20 mg Oral tab 1 tab once daily [Active]; furosemide 80 mg Oral tab 1 tab 2 times per day [Active]; levothyroxine [Active]; meclizine 25 mg Oral tab 1 tab 3 times per day for Vertigo [Active]; [employer]ER Thyroid 60 mg Oral tab twice a day [Active]; montelukast 10 mg Oral tab 1 tab once daily [Active]; benzonatate 100 mg Oral cap 1 cap 3 times per day for Cough [Active]; Vitamin D3 5,000 unit Oral tab daily [Active]; Vitamin B-6 Oral [Active]; magnesium oxide 400 mg Oral tab twice a day [Active]; - PMHx: 04:57 Thyroid problem; neuropathy; Hypertension; diabetic retinopathy; Diabetes - IDDM; CHF; ea Cellulitis; Atrial Fib; - PSHx: 04:57 Jaw surgery; Tonsillectomy; Cataracts surgery; Cholecystectomy; ea - Immunization history:: Adult Immunizations up to date, Adult Immunizations not up to date. - Social history:: Smoking status: Patient denies any tobacco usage or history of. Smoking status: Patient/guardian denies using. Screenin:53 Abuse screen: Denies threats or abuse. Nutritional screening: No deficits noted. ea Tuberculosis screening: No symptoms or risk factors identified. Fall Risk None identified. Assessment: 04:55 General: Appears in no apparent distress. Behavior is calm, cooperative, appropriate wh for age. Pain: Complains of pain in right leg and left leg. Neuro: Level of Consciousness is awake, alert, obeys commands, Oriented to person, place, time, situation, Appropriate for age. Cardiovascular: Edema pitting to left midcalf, left ankle, left foot, right midcalf, right ankle and right foot. Respiratory: Airway is patent Respiratory effort is even, unlabored, Respiratory pattern is regular, symmetrical. GI: Abdomen is round non-distended. : No signs and/or symptoms were reported regarding the genitourinary system. EENT: No signs and/or symptoms were reported regarding the EENT system. Derm: Skin is intact. Musculoskeletal: Swelling present in right leg and left leg. 06:38 Reassessment: Patient and/or family updated on plan of care and expected duration. Pain ea level reassessed. Patient is alert, oriented x 3, equal unlabored respirations, skin warm/dry/pink. Discharge instruction given to patient verbalized the understanding of instruction. Vital Signs: 04:58 BP 189 / 157; Pulse 60; Resp 19; Pulse Ox 99% ; ea 05:00 BP 162 / 57; Pulse 59; Resp 20; Pulse Ox 99% ; ea 05:10 Temp 98.5(O); em 06:54 BP 138 / 54; Pulse 60; Resp 18; Pulse Ox 99% on R/A; ea ED Course: 04:52 Patient arrived in ED. ea 04:53 Lior Mueller MD is Attending Physician. tw4 04:53 Patient has correct armband on for positive identification. Bed in low position. Call ea light in reach. Side rails up X2. Pulse ox on. NIBP on. 04:53 Arm band placed on right wrist. Patient placed in an exam room, on a stretcher, on ea pulse oximetry. 04:54 Triage completed. ea 04:55 Sendy Chavez, RN is Primary Nurse. 05:05 Initial lab(s) drawn, by me, sent to lab. Inserted saline lock: 20 gauge in right em antecubital area, using aseptic technique. Blood collected. 06:39 No provider procedures requiring assistance completed. ea 06:53 IV discontinued, intact, bleeding controlled, No redness/swelling at site. Pressure ea dressing applied. Administered Medications: No medications were administered Outcome: 06:12 Discharge ordered by . tw4 06:39 Condition: stable ea 06:39 Discharge instructions given to patient, Instructed on discharge instructions, follow up and referral plans. Demonstrated understanding of instructions, follow-up care. 06:53 Discharged to Pt awaiting in lobby for family ea 06:53 Patient left the ED. ea Signatures: Raheel Barbosa, RN RN Lizzeth Watts RN RN ea Habalo, Winsy, RN RN wh Wadley, Terrence, MD MD tw4
--- NOTE | 2020-11-08 06:13 | EDPHYS ---
Physician Documentation [facility] Name: Nikkie Ferrera Age: 70 yrs Sex: Female : 1950 Arrival Date: 11/08/2020 Time: 04:52 Bed 6 Private MD: ED Physician Lior Mueller HPI: 11/08 06:08 This 70 yrs old Female presents to ER via EMS with complaints of Leg Swelling.tw4 06:08 The patient presents with swelling. The complaints affect the lateral aspect of left tw4 calf, left lateral ankle, left calf, left Achilles, medial aspect of left calf, left medial ankle, left tello and anterior aspect of left ankle, lateral aspect of right calf, right ankle, right Achilles, medial aspect of right calf, right tello and anterior aspect of right ankle. Onset: The symptoms/episode began/occurred last week, and became worse 2 day(s) ago. Modifying factors: The symptoms are alleviated by nothing. the symptoms are aggravated by nothing. Severity of symptoms: At their worst the symptoms were moderate, in the emergency department the symptoms are unchanged. Historical: - Allergies: 04:57 Codeine; ea 04:57 Iodinated Contrast Media - IV Dye; ea 04:57 Lidocaine; ea 04:57 Morphine; ea 04:57 PENICILLINS; ea 04:57 Sulfa (Sulfonamide Antibiotics); ea - Home Meds: 04:57 Xarelto 20 mg Oral tab 1 tab once daily [Active]; levothyroxine 25 mcg tab 1 tab once ea daily [Active]; Vitamin D3 5,000 unit Oral tab daily [Active]; Vitamin B-6 Oral [Active]; PRIMARY CARE COORDINATOR Thyroid 60 mg Oral tab twice a day [Active]; Vitamin B-12 1,000 mcg Oral tab daily [Active]; Novolin N 100 unit/mL Sub-Q susp [Active]; Novolog 100 unit/mL Sub-Q soln [Active]; losartan 100 mg Oral tab 1 tab once daily [Active]; magnesium oxide 400 mg Oral tab twice a day [Active]; meclizine 25 mg Oral tab 1 tab 3 times per day for Vertigo [Active]; lovastatin 20 mg Oral tab 1 tab once daily [Active]; Metalazone 2.5 mg 4 tabs IN AM for urinary retention [Active]; montelukast 10 mg Oral tab 1 tab once daily [Active]; gabapentin 100 mg Oral cap 2 caps twice a day [Active]; furosemide 80 mg Oral tab 1 tab 2 times per day [Active]; fluconazole 200 mg Oral tab 1 tab as needed [Active]; benzonatate 100 mg Oral cap 1 cap 3 times per day for Cough [Active]; aspirin 81 mg Oral TbEC 1 tab once daily [Active]; amlodipine 5 mg tab 1 tab once daily [Active]; amiodarone 100 mg Oral tab 1 tab once daily [Active]; 05:02 amiodarone 100 mg Oral tab 1 tab once daily [Active]; amlodipine 5 mg tab .5 tab once wh daily [Active]; losartan 100 mg Oral tab 1 tab once daily [Active]; lovastatin 20 mg Oral tab 1 tab once daily [Active]; Xarelto 20 mg Oral tab 1 tab once daily [Active]; furosemide 80 mg Oral tab 1 tab 2 times per day [Active]; levothyroxine [Active]; meclizine 25 mg Oral tab 1 tab 3 times per day for Vertigo [Active]; PRIMARY CARE COORDINATOR Thyroid 60 mg Oral tab twice a day [Active]; montelukast 10 mg Oral tab 1 tab once daily [Active]; benzonatate 100 mg Oral cap 1 cap 3 times per day for Cough [Active]; Vitamin D3 5,000 unit Oral tab daily [Active]; Vitamin B-6 Oral [Active]; magnesium oxide 400 mg Oral tab twice a day [Active]; - PMHx: 04:57 Thyroid problem; neuropathy; Hypertension; diabetic retinopathy; Diabetes - IDDM; CHF; ea Cellulitis; Atrial Fib; - PSHx: 04:57 Jaw surgery; Tonsillectomy; Cataracts surgery; Cholecystectomy; ea - Immunization history:: Adult Immunizations up to date, Adult Immunizations not up to date. - Social history:: Smoking status: Patient denies any tobacco usage or history of. Smoking status: Patient/guardian denies using. ROS: 06:08 Constitutional: Negative for fever, chills, and weight loss, Eyes: Negative for injury, tw4 pain, redness, and discharge, Cardiovascular: Negative for chest pain, palpitations, and edema, Respiratory: Negative for shortness of breath, cough, wheezing, and pleuritic chest pain, Abdomen/GI: Negative for abdominal pain, nausea, vomiting, diarrhea, and constipation, Back: Negative for injury and pain, Neuro: Negative for headache, weakness, numbness, tingling, and seizure. 06:08 MS/extremity: Positive for laceration, swelling, Negative for injury or acute deformity, abrasion, bite, contusion, decreased range of motion, deformity, ecchymosis, erythema. Exam: 06:08 Constitutional: This is a well developed, well nourished patient who is awake, alert, tw4 and in no acute distress. Head/Face: Normocephalic, atraumatic. Chest/axilla: Normal chest wall appearance and motion. Nontender with no deformity. No lesions are appreciated. Cardiovascular: Regular rate and rhythm with a normal S1 and S2. No gallops, murmurs, or rubs. Normal PMI, no JVD. No pulse deficits. Respiratory: Lungs have equal breath sounds bilaterally, clear to auscultation and percussion. No rales, rhonchi or wheezes noted. No increased work of breathing, no retractions or nasal flaring. Abdomen/GI: Soft, non-tender, with normal bowel sounds. No distension or tympany. No guarding or rebound. No evidence of tenderness throughout. 06:08 Musculoskeletal/extremity: Extremities: noted in the right leg: abrasion, swelling, tenderness, noted in the left tello and anterior aspect of left ankle: swelling. Vital Signs: 04:58 BP 189 / 157; Pulse 60; Resp 19; Pulse Ox 99% ; ea 05:00 BP 162 / 57; Pulse 59; Resp 20; Pulse Ox 99% ; ea 05:10 Temp 98.5(O); em 06:54 BP 138 / 54; Pulse 60; Resp 18; Pulse Ox 99% on R/A; ea MDM: 04:53 Patient medically screened. tw4 06:08 Differential diagnosis: dislocation, open fracture, closed fracture, contusion, tw4 abrasion. Data reviewed: vital signs, nurses notes. Data interpreted: Pulse oximetry: Interpretation: normal. Counseling: I had a detailed discussion with the patient and/or guardian regarding: the historical points, exam findings, and any diagnostic results supporting the discharge/admit diagnosis, lab results. Special discussion: I discussed with the patient/guardian in detail that at this point there is no indication for admission to the hospital. It is understood, however, that if the symptoms persist or worsen the patient needs to return immediately for re-evaluation. 11/08 05:00 Order name: Basic Metabolic Panel; Complete Time: 06:08 11/08 06:08 Interpretation: Normal except: K 3.4; CL 108; BUN 24; GLUC 126; GFR 45. 11/08 05:00 Order name: CBC with Diff; Complete Time: 06:08 11/08 06:08 Interpretation: Normal except: MPV 12.3. 11/08 05:00 Order name: Hepatic Function; Complete Time: 06:08 11/08 06:08 Interpretation: Normal except: A/G 0.8; ALB 3.3; GLOB 4.2; AST 11. 11/08 05:00 Order name: Lipase; Complete Time: 06:08 11/08 06:08 Interpretation: Within normal limits: LIP 50. 11/08 05:00 Order name: IV Saline Lock; Complete Time: 05:10 11/08 05:00 Order name: Labs collected and sent; Complete Time: 05:10 Administered Medications: No medications were administered Disposition: 11/08/20 06:12 Discharged to Home. Impression: Lymphedema, not elsewhere classified. - Condition is Stable. - Discharge Instructions: Lymphedema. - Medication Reconciliation Form, Thank You Letter, Antibiotic Education, Prescription Opioid Use form. - Follow up: Private Physician; When: Upon discharge from the Emergency Department; Reason: Recheck today's complaints, Continuance of care, Re-evaluation by your physician. - Problem is new. - Symptoms have improved. Signatures: Dispatcher [employer] EDLizzeth Robin RN RN ea Habalo, Winsy RN Lior Javier MD MD tw4 Corrections: (The following items were deleted from the chart) 06:53 06:12 11/08/2020 06:12 Discharged to Home. Impression: Lymphedema, not elsewhere ea classified. Condition is Stable. Forms are Medication Reconciliation Form, Thank You Letter, Antibiotic Education, Prescription Opioid Use. Follow up: Private Physician; When: Upon discharge from the Emergency Department; Reason: Recheck today's complaints, Continuance of care, Re-evaluation by your physician. Problem is new. Symptoms have improved. tw4
[2020-11-08 07:00] VITALS: O2SAT 99
[2020-11-08 07:01] VITALS: BP 162/57
[2020-11-08 07:02] VITALS: TEMP 98.5
== END 2020-11-08 06:53 | disposition home or self-care (01) ==
LOC: ER 04:50
DX: I89.0 Lymphedema, not elsewhere classified (principal); Z88.6 Allergy status to analgesic agent; Z91.09 Other allergy status, other than to drugs and biological substances; Z88.0 Allergy status to penicillin; I10 Essential (primary) hypertension; E11.9 Type 2 diabetes mellitus without complications; E03.9 Hypothyroidism, unspecified; I48.91 Unspecified atrial fibrillation; I50.9 Heart failure, unspecified
CPT/HCPCS: 36415; 80048; 80076; 83690; 85025; 99284

== ENCOUNTER 2021-07-12 08:47 | Inpatient (IN) | payer OTHER ==
[2021-07-12 10:00] LABS: Absolute Lymphocytes (CBC) 0.9 K/uL (0.7-4.9); Basophils % 0.3 % (0-1.3); Hematocrit 38.6 % (36.0-45.0); Lymphocytes % 10.9 % (15.3-44.8); MPV 11.5 fL (7.6-11.3); RBC Red Blood Cell Count 4.41 M/uL (3.86-4.86)
[2021-07-12 10:04] LABS: Protime INR 2.23
[2021-07-12 10:36] LABS: Potassium 4.1 mmol/L (3.5-5.1)
--- NOTE | 2021-07-12 10:57 | ER ---
Nurse's Notes [facility] Name: Nikkie Ferrera Age: 70 yrs Sex: Female : 1950 Arrival Date: 07/12/2021 Time: 08:52 Bed 27 Private MD: Diagnosis: Cellulitis of right lower limb;Lymphedema, not elsewhere classified Presentation: 07/12 09:05 Chief complaint: Patient states: presented wit right leg open wound. times days. states 1 home health nurse comes to do wound care. also c/o wounds ion buttosck. Ebola Screen: No symptoms or risks identified at this time. Initial Sepsis Screen: Does the patient meet any 2 criteria? No. Patient's initial sepsis screen is negative. Does the patient have a suspected source of infection? Yes: Skin breakdown/wound. Risk Assessment: Do you want to hurt yourself or someone else? Patient reports no desire to harm self or others. Onset of symptoms is unknown. 09:05 Method Of Arrival: EMS: [place] [id number] 09:05 Acuity: KRISTIAN 3 kh1 Triage Assessment: 09:08 General: Appears in no apparent distress. uncomfortable, Behavior is calm, cooperative, kh1 appropriate for age. Pain: Complains of pain in right leg Pain does not radiate. Pain currently is 10 out of 10 on a pain scale. at worst was 10 out of 10 on a pain scale. level that patient reports is acceptable is 3 out of 10 on a pain scale. Quality of pain is described as burning, sharp, throbbing. Neuro: No deficits noted. Level of Consciousness is awake, alert, obeys commands, Oriented to person, place, time, situation, [place] are equal bilaterally Weakness Gait is unsteady, Speech is normal, Facial symmetry appears normal. Musculoskeletal: Capillary refill < 3 seconds, Swelling present in right leg and left leg. - Immunization history:: Adult Immunizations up to date. - Social history:: Smoking status: Patient denies any tobacco usage or history of. Patient/guardian denies using alcohol, street drugs, tobacco products. - Family history:: not pertinent. - Hospitalizations: : No recent hospitalization is reported. Screenin:11 Abuse screen: Denies threats or abuse. Nutritional screening: No deficits noted. On kh1 diabetic diet, Difficulty chewing/swallowing? No Tuberculosis screening: No symptoms or risk factors identified. Fall Risk Fall in past 12 months (25 points). Secondary diagnosis (15 points) impaired mobility, IV access (20 points). Ambulatory Aid- Crutches/Cane/Walker (15 pts). Gait- Impaired (20 pts.). Mental Status- Oriented to own ability (0 pts). Assessment: 09:10 General: Appears in no apparent distress. uncomfortable, Behavior is calm, cooperative, kh1 appropriate for age. Pain: Complains of pain in right leg Pain does not radiate. Neuro: No deficits noted. Level of Consciousness is awake, alert, obeys commands, Oriented to person, place, time, situation, Gait is unsteady, Speech is normal. 10:09 Reassessment: Patient appears in no apparent distress at this time. No changes from [facility] previously documented assessment. Patient and/or family updated on plan of care and expected duration. Pain level reassessed. Patient is alert, oriented x 3, equal unlabored respirations, skin warm/dry/pink. to ultra sound. Vital Signs: 09:05 BP 104 / 66; Pulse 64 MON; Resp 18 S; Temp 98.1(O); Pulse Ox 100% on R/A; Weight 148.32 kh1 kg; Height 5 ft. 8 in. (172.72 cm); Pain 07/22; 09:12 BP 104 / 66; Pulse 64; Resp 18; Temp 98.1; Pulse Ox 100% ; kh1 09:05 Body Mass Index 49.72 (148.32 kg, 172.72 cm) [facility] Vitals: 09:12 Cardiac Rhythm Assessment Regular Sinus rhythm. [facility] [place] Coma Score: 09:12 Eye Response: spontaneous(4). Verbal Response: oriented(5). Motor Response: obeys [facility] commands(6). Total: 15. ED Course: 08:52 Patient arrived in ED. ss 08:52 Hesham Bone MD is Attending Physician. rn 08:56 Arm band placed on right wrist. ss 09:05 Marilia Coto is Primary Nurse. 1 09:08 Triage completed. 1 09:13 Patient has correct armband on for positive identification. Bed in low position. Call [facility] light in reach. Side rails up X 1. delivery assistant on. Pulse ox on. NIBP on. 09:44 Procalcitonin Sent. kh1 09:45 Blood Culture Adult (2) Sent. kh1 09:45 Basic Metabolic Panel Sent. kh1 09:45 Protime (+inr) Sent. kh1 09:45 Ptt, Activated Sent. kh1 10:08 Procalcitonin Sent. kh1 10:08 Blood Culture Adult (2) Sent. kh1 10:08 Basic Metabolic Panel Sent. kh1 10:08 Protime (+inr) Sent. kh1 10:08 Ptt, Activated Sent. kh1 10:08 CBC with Diff Sent. kh1 10:56 Vadim Lind DO is Hospitalizing Provider. rn 11:02 Extrem Venous W Compression Ken US In Process Unspecified. EDMS Administered Medications: 12:02 Drug: NS 0.9% 500 ml Route: IV; Rate: bolus; Site: left antecubital; kh1 12:02 Drug: Cefepime 1 grams Route: IVPB; Rate: 200 ml/hr; Infused Over: 30 mins; Site: left [facility] antecubital; 13:40 Drug: vancoMYCIN 1.5 grams Route: IVPB; Rate: calculated rate; Site: left antecubital; [facility] Outcome: 10:56 Decision to Hospitalize by Provider. rn 07/13 08:34 Patient left the ED. iw Signatures: Dispatcher [employer] EDaMría Rodriguez RN RN iw Nieto, Roman, MD MD rn Smirch, Shelby, RN RN ss Harris, Kecia [facility] Corrections: (The following items were deleted from the chart) 07/12 09:45 09:45 CBC+H.LAB.BRZ drawn and sent. [facility] EDMS 10:13 09:44 CORONAVIRUS+MR.LAB.BRZ drawn and sent. [facility] EDMS
--- NOTE | 2021-07-12 10:57 | EDPHYS ---
Physician Documentation [facility] Name: Nikkie Ferrera Age: 70 yrs Sex: Female : 1950 Arrival Date: 07/12/2021 Time: 08:52 Bed 27 Private MD: ED Physician Hesham Bone HPI: 07/12 09:19 This 70 yrs old Female presents to ER via EMS with complaints of Leg rn Swelling, leaking wounds. 09:19 The patient presents with cellulitis of the right leg. Description: draining, rn erythematous, swollen. Onset: The symptoms/episode began/occurred 2 day(s) ago. Possible cause(s): unknown. Associated signs and symptoms: Pertinent positives: drainage, erythema, swelling, Pertinent negatives: fever. Modifying factors: the symptoms are alleviated by nothing, the symptoms are aggravated by touching. Severity of symptoms: At their worst the symptoms were moderate, in the emergency department the symptoms are unchanged. The patient has experienced similar episodes in the past. The patient has not recently seen a physician. Patient reports has chronic lymphedema, has home health come by frequently, reports right lower extremity with increased drainage and redness for the last 2 days. No fever. No injury. Reports unable to take care of wounds at home, PCP will not look at wounds or manage them, and right leg looks significantly worse so came in for evaluation.. - Immunization history:: Adult Immunizations up to date. - Social history:: Smoking status: Patient denies any tobacco usage or history of. Patient/guardian denies using alcohol, street drugs, tobacco products. - Family history:: not pertinent. - Hospitalizations: : No recent hospitalization is reported. ROS: 09:19 Constitutional: Negative for fever, chills, and weight loss, Eyes: Negative for injury, rn pain, redness, and discharge, Neck: Negative for injury, pain, and swelling, Cardiovascular: Negative for chest pain, palpitations, positive for lymphedema Respiratory: Negative for shortness of breath, cough, wheezing, and pleuritic chest pain, Abdomen/GI: Negative for abdominal pain, nausea, vomiting, diarrhea, and constipation, Back: Negative for injury and pain, MS/Extremity: Positive for edema and swelling bilateral lower extremities Skin: Positive for erythema and drainage of right lower extremity wounds Neuro: Negative for headache, weakness, numbness, tingling, and seizure. Exam: 09:19 Constitutional: Overweight female with lymphedema, no acute distress Head/Face: rn Normocephalic, atraumatic. Eyes: Periorbital areas with no swelling, redness, or edema. Cardiovascular: Regular rate and rhythm. No pulse deficits. Respiratory: No increased work of breathing, no retractions or nasal flaring. Skin: Warm, confluence of wounds right lower extremity that are circumferential and draining serosanguineous fluid, mild odor emanating from wounds with surrounding erythema. No streaking proximally MS/ Extremity: Pulses equal, no cyanosis. Neurovascular intact. 3+ pitting edema bilateral lower extremities, increased circumference of right lower extremity compared to left because left lower extremity was tightly wrapped in numerous dressings and right lower extremity was not. Neuro: Awake and alert, GCS 15 Vital Signs: 09:05 BP 104 / 66; Pulse 64 MON; Resp 18 S; Temp 98.1(O); Pulse Ox 100% on R/A; Weight 148.32 kh1 kg; Height 5 ft. 8 in. (172.72 cm); Pain 10/10; 09:12 BP 104 / 66; Pulse 64; Resp 18; Temp 98.1; Pulse Ox 100% ; kh1 09:05 Body Mass Index 49.72 (148.32 kg, 172.72 cm) kh1 [place] Coma Score: 09:12 Eye Response: spontaneous(4). Verbal Response: oriented(5). Motor Response: obeys kh1 commands(6). Total: 15. MDM: 08:52 Patient medically screened. rn 10:55 Differential diagnosis: cellulitis, lymphedema. Data reviewed: vital signs, nurses rn notes, lab test result(s), radiologic studies, doppler, and as a result, I will admit patient. Counseling: I had a detailed discussion with the patient and/or guardian regarding: the historical points, exam findings, and any diagnostic results supporting the discharge/admit diagnosis, lab results, radiology results, the need for further work-up and treatment in the hospital. Admission orders: after a detailed discussion of the patient's condition and case, the admit orders are written by me. 07/12 09: Order name: CBC with Diff; Complete Time: 10:49 rn 07/12 09:04 Order name: Basic Metabolic Panel; Complete Time: 10:49 rn 07/12 09:04 Order name: Protime (+inr); Complete Time: 10:49 rn 07/12 09:04 Order name: Ptt, Activated; Complete Time: 10:49 rn 07/12 09:04 Order name: Blood Culture Adult (2) rn 07/12 09:04 Order name: Procalcitonin rn 07/12 11:06 Order name: SARS-COV-2 RT PCR; Complete Time: 11:13 EDMS 07/12 16:17 Order name: Glucose, Ancillary Testing EDMS 07/13 00:15 Order name: Glucose, Ancillary Testing EDMS 07/13 03:38 Order name: Glucose, Ancillary Testing EDMS 07/13 03:59 Order name: CBC with Automated Diff EDMS 07/13 04:16 Order name: Comprehensive Metabolic Panel EDMS 07/13 04:16 Order name: Uric Acid EDMS 07/12 09:04 Order name: IV Start; Complete Time: 09:45 rn 07/12 09:04 Order name: Extrem Venous W Compression Ken US; Complete Time: 11:20 rn 07/12 16:17 Order name: US EDMS 07/13 04:16 Order name: Phosphorus EDMS 07/13 04:16 Order name: Lipid Profile EDMS 07/13 04:16 Order name: T4 Free EDMS 07/13 04:16 Order name: Magnesium EDMS 07/13 04:16 Order name: Thyroid Stimulating Hormone EDMS 07/13 04:24 Order name: Hemoglobin A1c EDMS 07/13 06:41 Order name: Glucose, Ancillary Testing EDMS Administered Medications: 12:02 Drug: NS 0.9% 500 ml Route: IV; Rate: bolus; Site: left antecubital; [facility] 12:02 Drug: Cefepime 1 grams Route: IVPB; Rate: 200 ml/hr; Infused Over: 30 mins; Site: left 1 antecubital; 13:40 Drug: vancoMYCIN 1.5 grams Route: IVPB; Rate: calculated rate; Site: left antecubital; [facility] Disposition Summary: 07/12/21 10:56 Hospitalization Ordered Hospitalization Status: Observation rn Provider: Vadim Lind rn Condition: Stable rn Problem: an ongoing problem rn Symptoms: are unchanged rn Bed/Room Type: Standard rn Location: Telemetry/MedSurg (observation)(07/13/21 06:34) tl1 Room Assignment: 208(07/13/21 06:34) tl1 Diagnosis - Cellulitis of right lower limb rn - Lymphedema, not elsewhere classified rn Forms: - Medication Reconciliation Form rn - SBAR form rn Signatures: Dispatcher [employer] EDMS Hesham Bone MD MD rn Smirch, Shelby, RN RN ss Almaz Alvarez RN RN 1 Marilia Coto [facility] Corrections: (The following items were deleted from the chart) 09:45 09:04 CBC+H.LAB.BRZ ordered. EDMS EDMS 10:13 09:05 CORONAVIRUS+MR.LAB.BRZ ordered. EDMS EDMS 15:02 10:56 Telemetry/MedSurg (observation) rn 15:02 10:56 rn ss 07/13 06:34 07/12 15:02 [facility] ER HOLD tl1 07/13 06:34 07/12 15:02 [facility]
--- NOTE | 2021-07-12 11:19 | RAD REPORT ---
EXAM DESCRIPTION: US - Extrem Venous W Compress Ken - 07/12/2021 11:02 am CLINICAL HISTORY: Swelling COMPARISON: None TECHNIQUE: Real-time sonographic evaluation of the bilateral lower extremity deep venous systems was performed. FINDINGS: Normal compressibility, flow augmentation, phasic flow and spontaneous flow is identified in both the left and right lower extremity deep venous systems. No intraluminal filling defects seen. IMPRESSION: No DVT in either lower extremity.
[2021-07-12] MEDS ORDERED: NA CHLORIDE 0.9% 0 ML ONE (12:07)
[2021-07-12] MEDS ORDERED: CEFEPIME 1 GM/VIAL ONE (12:07)
[2021-07-12] MEDS ORDERED: NA CHLORIDE 0.9% 100 ML ONE (12:08)
[2021-07-12] MEDS ORDERED: VANCOMYCIN 1.5 GM in NA CHLORIDE 0.9% 500 ML IVPB ONE (13:00)
[2021-07-12] MEDS ORDERED: ACETAMINOPHEN 500 MG TAB PO PRN (14:18)
[2021-07-12] MEDS ORDERED: D50W 25 GM/50 ML SYRINGE IV PRN (14:18)
[2021-07-12] MEDS ORDERED: GLUCAGON 1 MG/VIAL IM PRN (14:18)
[2021-07-12] MEDS ORDERED: ONDANSETRON 4 MG/2 ML VIAL IV PRN (14:18)
--- NOTE | 2021-07-12 15:16 | P.HP ---
Certification for Inpatient Patient admitted to: Inpatient Patient will require the following post-hospital care: Home Health Services Practitioner: I am a practitioner with admitting privileges, knowledge of patient current condition, hospital course, and medical plan of care. Services: Services provided to patient in accordance with Admission requirements found in Title 42 Section 412.3 of the Code of Federal Regulations Patient History Date of Service: 07/12/21 Primary Care Provider: Dr. Goldberg; Cardiology-Dr. Baltazar Reason for admission: Right lower extremity erythema History of Present Illness: 70-year-old female with history of diabetes mellitus type 2 insulin- dependent, hypertension, atrial fibrillation on chronic anticoagulation therapy, CHF, hyperlipidemia. Patient presented with increasing erythema to the right lower extremity. Patient had been seen by her PCP. No improvement was noted. She denied any fever, chills. Increased weeping to the right lower extremity identified. Patient with history of chronic lymphedema. She came to the ER for further evaluation. In the ER patient was evaluated. Breakdown noted to the right lower extremity. Erythema, swelling noted as well. White count within normal range. Sodium 136, potassium 4.1. BUN of 79, creatinine 1.5 with a GFR of 33. Glucose 290. Patient admitted for further evaluation and treatment. Allergies codeine Allergy (Verified 12/23/13 18:12) Itching doxycycline Allergy (Verified 12/23/13 18:12) Nausea/Vomiting lidocaine Allergy (Verified 12/23/13 18:12) Anaphylaxis Penicillins Allergy (Verified 12/23/13 18:12) Anaphylaxis Sulfa (Sulfonamide Antibiotics) Allergy (Verified 12/23/13 18:12) Nausea/Vomiting Iodinated Contrast Media [Iodinated Contrast Media - IV Dye] Adverse Reaction (Verified 12/23/13 18:12) Hives/Rash Home medications list reviewed: Yes Home Medications: Aspirin Chewable [Aspirin Chewable*] 1 tab PO 12/23/13 Furosemide [Lasix] 80 tab PO BID 12/23/13 Gabapentin [Neurontin*] 3 tab PO BEDTIME 12/23/13 Ibuprofen [Motrin] 200 mg PO PRN 12/23/13 Insulin Aspart [Novolog*] 40 units SUBQ DAILY WITH BREAKFAST 12/23/13 Insulin NPH Human [Novolin N (Humulin N)*] 40 units SQ DAILY AFTER SUPPER 12/23/13 Lovastatin [Mevacor*] 20 mg PO BEDTIME 12/23/13 Magnesium Oxide [Mag 0X*] 400 mg PO DAILY 12/23/13 Meclizine HCl [Motion Sickness Relief] 1 tab PO PRN PRN 12/23/13 Thyroid,Pork [[place] Thyroid] 120 mg PO DAILY 12/23/13 carvediloL [Coreg*] 1 tab PO BID 12/23/13 - Past Medical/Surgical History Has patient received pneumonia vaccine in the past: Yes Diabetic: Yes -: Chronic diastolic CHF -: Diabetes mellitus type 2 insulin-dependent -: Hypertension -: Hyperlipidemia -: Atrial fibrillation on chronic anticoagulation the -: Chronic lymphedema -: Obesity -: Jaw reconstruction for TMJ -: Cholecystectomy -: Tonsillectomy Psychosocial/ Personal History: Patient lives at home by herself. She has home health - Family History Family History: Reviewed- Non-Contributory - Social History Smoking Status: Current every day smoker Alcohol use: Yes CD- Drugs: No Caffeine use: No Place of Residence: Home Review of Systems General: Weakness, As per HPI Eyes: Unremarkable ENT: Unremarkable Respiratory: Unremarkable Cardiovascular: Edema, As per HPI Gastrointestinal: Unremarkable Genitourinary: Unremarkable Musculoskeletal: Pedal edema Integumentary: As per HPI Neurological: Unremarkable Lymphatics: Unremarkable Physical Examination - Vital Signs Temperature: 98.0 F Blood Pressure: 124/51 Pulse: 62 Respirations: 20 Pulse Ox (%): 98 - Studies Laboratory Data (last 24 hrs) 07/12/21 09:30: PT 25.8 H, INR 2.23, APTT 35.6 07/12/21 09:30: Sodium 136, Potassium 4.1, BUN 79 H, Creatinine 1.57 H, Glucose 290 H 07/12/21 09:30: WBC 8.30, Hgb 13.0, Hct 38.6, Plt Count 198 Assessment and Plan - Plan COVID: Negative Venous Doppler: COMPARISON: None TECHNIQUE: Real-time sonographic evaluation of the bilateral lower extremity deep venous systems was performed. FINDINGS: Normal compressibility, flow augmentation, phasic flow and spontaneous flow is identified in both the left and right lower extremity deep venous systems. No intraluminal filling defects seen. IMPRESSION: No DVT in either lower extremity. Physical Exam: GENERAL: The patient is a well-developed, well-nourished, in no apparent distress. Alert and oriented x3. VITAL SIGNS: Reviewed HEENT: Head is normocephalic and atraumatic. Extraocular muscles are intact. Pupils are equal, round, and reactive to light and accommodation. Nares appeared normal. Mouth is well hydrated and without lesions. Mucous membranes are moist. NECK: Supple. No carotid bruits. No lymphadenopathy or thyromegaly. LUNGS: Clear to auscultation. No crackles or wheezes are heard. HEART: Regular rate and rhythm, no appreciable gallops, rubs, murmurs or extra heart sounds ABDOMEN: Soft, nontender, and nondistended. Positive bowel sounds. No hepatosplenomegaly was noted. EXTREMITIES: Significant breakdown to the right lower extremity circumferentially below the knee. Erythema, significant edema to the lower extremity noted. Pain with palpation. NEUROLOGIC: The patient is oriented to person, place and time. Strength and sensation are grossly intact. Face is symmetric. SKIN: As above Impression: Right lower extremity cellulitis with chronic lymphedema Atrial fibrillation on chronic anticoagulation therapy Acute on chronic renal disease stage III Diabetes mellitus type 2 insulin-dependent Hypertension Hyperlipidemia Chronic diastolic CHF Morbid obesity, BMI above 40 Plan: Right lower extremity cellulitis with chronic lymphedema: Patient admitted for treatment. Will continue with cefepime and vancomycin. Venous Doppler negative. Will consult surgery to further evaluate for possible debridement. Will consult infectious disease for recommendations. We will also consult wound care to further evaluate. Patient would likely benefit with lymphedema treatment in the future. Atrial fibrillation on chronic anticoagulation therapy: Restart Xarelto. Continue with Bumex. Continue amiodarone. Acute on chronic renal disease stage III: Nephrology consulted. Await recommendations. Will check renal ultrasound. Diabetes mellitus type 2 insulin-dependent: We will provide Lantus. Sliding scale in place. Will check A1c. Hypertension: Restart losartan, Norvasc. Hyperlipidemia: Restart statin medication Chronic diastolic CHF: Continue Bumex 2 mg 1 pill twice daily Morbid obesity, BMI above 40: Address lifestyle modification education Code Status: DO NOT RESUSCITATE DVT prophylaxis: Xarelto Advanced Care Planning-30 minutes: We will need to continue with home health and physical therapy at discharge. Discharge Plan: Home (With home health and physical therapy) Plan to discharge in: 72 Hours - Advance Directives Does patient have a Living Will: No Does patient have a Durable POA for Healthcare: No - Code Status/Comfort Care Code Status Assessed: Yes (Patient is DNR) Time Spent Managing Pts Care (In Minutes): 55
--- NOTE | 2021-07-12 16:17 | RAD REPORT ---
EXAM DESCRIPTION: US - Renal Ultrasound-Complete - 07/12/2021 3:53 pm CLINICAL HISTORY: Acute on chronic renal disease COMPARISON: None FINDINGS: The right kidney measures 12 cm with a normal echotexture. 3 centimeter hypoechoic structu re mid to upper pole right kidney The left kidney measures 9.5 cm with a normal echotexture. Hydronephrosis is not seen. Limited evaluation the bladder is the patient had recently voided IMPRESSION: 3 centimeter hypoechoic structure mid to upper pole right kidney probably lobulati on. However, as a mass can have this appearance it is recommended that the patient have a nonemergent CT scan of the kidneys with and without IV contrast for further evaluation. If the creatinine stays persistently high an unenhanced MRI could be obtained instead
[2021-07-12] MEDS: INSULIN -REGULAR HUMAN 50 UNIT/0.5 ML ML SQ SCH ×2 (16:30→21:00)
[2021-07-12] MEDS: RIVAROXABAN 20 MG TABLET PO SCH (17:00)
--- NOTE | 2021-07-12 17:35 | CON ---
Date of Consultation: 07/12/2021 Diagnoses: Right lower extremity cellulitis, lymphedema, venous stasis ulcer. History Of Present Illness: This is the case of a female with history of lymphedema. I remember see ing this patient several years ago at the [facility]. She has history of a venou s stasis disease and venous ulcer increased pressure. She has venous stasis ulcers in the past. The y are healed and came back once again. At this time, the legs swollen once again and everything blis ter out in the right lower extremity. She denies any trauma. She came to the ER, found to have infl ammation and erythema over the area with all these blisters present, and she was admitted and a surgi ramya consult was obtained. Allergies: INCLUDE CODEINE, DOXYCYCLINE, PENICILLIN, SULFA, ALSO IODINE CONTRAST. Past Medical History: Includes hypertension, hyperlipidemia, AFib, morbid obesity. Past Surgical History: Includes cholecystectomy, tonsillectomy. Social History: She still smokes, advised the importance of smoking cessation. She does not drink a lcohol. The patient advised the importance of colonoscopies. Review of Systems: See H and P. Ten points otherwise unremarkable. Physical Examination: General: The patient is awake, alert. HEENT: Pupils are equal and reactive. Anicteric. Neck: Supple. Chest: Clear. Abdomen: Soft and depressible. Extremities: Show bilateral lymphedema. No calf tenderness, but she has cellulitis including mid le g all the way down to the foot with blisters circumferentially in the lower extremity and mid half of it. Multiple blisters and devitalized tissue that need surgical debridement. Laboratory Data: Blood work shows WBC count of 8.3, hemoglobin of 13. INR is 2. Creatinine is 1.57 . Venous Doppler shows no DVT in the right or left lower extremity. Assessment: It is a 70-year-old patient with venous stasis ulcers with necrotic tissue over that are a. The patient will need to have debridement of that. The benefits, alternatives, and risks of debr idement were fully explained, which include, but not limited to infection, bleeding, damage to adjace nt structures, anesthesia complication, [place], and even . She also understands this may not reliev e any symptoms. She might need more than one surgical intervention. She understands the importance of losing weight, the importance of lymphedema control. These are chronic conditions and if she is r etaining fluid, sure the blister will form with the problem that we see below. We explained to her t hat in the past years ago and we explained that once again to her. [facility] because [facility] are not allowing her in at this moment. We encouraged her after she gets discharge d from here, she is to still [facility] where we can provide more support. ALEXANDRE/TANESHA Voice ID: [id number] Report ID: [id number]
[2021-07-12] MEDS ORDERED: INSULIN -REGULAR HUMAN 50 UNIT/0.5 ML ML ONE (18:59)
[2021-07-12] MEDS: ATORVASTATIN 10 MG TAB PO SCH (21:00)
[2021-07-12] MEDS: BUMETANIDE 1 MG TABLET PO SCH ×2 (21:00)
[2021-07-12] MEDS ORDERED: INSULIN GLARGINE 100 UNITS/ML SQ SCH (21:00)
--- NOTE | 2021-07-12 22:16 | P.CNS ---
Date of Consult: 07/12/21 Reason for Consult: EZEQUIEL Requesting Physician: Vadim Lind Primary Care Provider: Dr. Goldberg; Cardiology-Dr. Baltazar Chief Complaint: Right lower extremity erythema History of Present Illness: 70-year-old female with history of diabetes mellitus type 2 insulin- dependent, hypertension, atrial fibrillation on chronic anticoagulation therapy, CHF, hyperlipidemia. Patient presented with increasing erythema to the right lower extremity. Patient had been seen by her PCP. No improvement was noted. She denied any fever, chills. Increased weeping to the right lower extremity identified. Patient with history of chronic lymphedema. She came to the ER for further evaluation. She reports rare NSAIDs. She denies difficulty with urination. Reports being told about her CKD during her last admission at [facility]. 09:19 This 70 yrs old Female presents to ER via EMS with complaints of Leg rn Swelling, leaking wounds. 09:19 The patient presents with cellulitis of the right leg. Description: draining, rn erythematous, swollen. Onset: The symptoms/episode began/occurred 2 day(s) ago. Possible cause(s): unknown. Associated signs and symptoms: Pertinent positives: drainage, erythema, swelling, Pertinent negatives: fever. Modifying factors: the symptoms are alleviated by nothing, the symptoms are aggravated by touching. Severity of symptoms: At their worst the symptoms were moderate, in the emergency department the symptoms are unchanged. The patient has experienced similar episodes in the past. The patient has not recently seen a physician. Patient reports has chronic lymphedema, has home health come by frequently, reports right lower extremity with increased drainage and redness for the last 2 days. No fever. No injury. Reports unable to take care of wounds at home, PCP will not look at wounds or manage them, and right leg looks significantly worse so came in for evaluation.. Allergies codeine Allergy (Verified 12/23/13 18:12) Itching doxycycline Allergy (Verified 12/23/13 18:12) Nausea/Vomiting lidocaine Allergy (Verified 12/23/13 18:12) Anaphylaxis Penicillins Allergy (Verified 12/23/13 18:12) Anaphylaxis Sulfa (Sulfonamide Antibiotics) Allergy (Verified 12/23/13 18:12) Nausea/Vomiting Iodinated Contrast Media [Iodinated Contrast Media - IV Dye] Adverse Reaction (Verified 12/23/13 18:12) Hives/Rash Home medications list reviewed: Yes Home Medications: Aspirin Chewable [Aspirin Chewable*] 1 tab PO 12/23/13 Furosemide [Lasix] 80 tab PO BID 12/23/13 Gabapentin [Neurontin*] 3 tab PO BEDTIME 12/23/13 Ibuprofen [Motrin] 200 mg PO PRN 12/23/13 Insulin Aspart [Novolog*] 40 units SUBQ DAILY WITH BREAKFAST 12/23/13 Insulin NPH Human [Novolin N (Humulin N)*] 40 units SQ DAILY AFTER SUPPER 12/23/13 Lovastatin [Mevacor*] 20 mg PO BEDTIME 12/23/13 Magnesium Oxide [Mag 0X*] 400 mg PO DAILY 12/23/13 Meclizine HCl [Motion Sickness Relief] 1 tab PO PRN PRN 12/23/13 Thyroid,Pork [[place] Thyroid] 120 mg PO DAILY 12/23/13 carvediloL [Coreg*] 1 tab PO BID 12/23/13 - Past Medical/Surgical History Diabetic: Yes -: Chronic diastolic CHF -: Diabetes mellitus type 2 insulin-dependent -: Hypertension -: Hyperlipidemia -: Atrial fibrillation on chronic anticoagulation the -: Chronic lymphedema -: Obesity -: Jaw reconstruction for TMJ -: Cholecystectomy -: Tonsillectomy Psychosocial/ Personal History: Patient lives at home by herself. She has home health - Social History Smoking Status: Never smoker Alcohol use: Yes CD- Drugs: No Caffeine use: No Place of Residence: Home Review of Systems 10-point ROS is otherwise unremarkable General: Weakness Respiratory: SOB with Excertion Cardiovascular: Edema Neurological: Weakness Physical Examination Temp Pulse Resp BP Pulse Ox 98.0 F 60 18 118/70 98 07/12/21 15:16 07/12/21 18:18 07/12/21 18:18 07/12/21 18:18 07/12/21 18:18 General: In no apparent distress, Oriented x3, Cooperative HEENT: Atraumatic Neck: Supple Respiratory: Clear to auscultation bilaterally Cardiovascular: Regular rate/rhythm, Edema Gastrointestinal: Soft and benign, Non-distended Musculoskeletal: No clubbing, Erythema, Tenderness, Warmth Integumentary: No cyanosis, Skin breakdown, Skin lesion Neurological: Normal speech Laboratory Data (last 24 hrs) 07/12/21 09:30: PT 25.8 H, INR 2.23, APTT 35.6 07/12/21 09:30: Sodium 136, Potassium 4.1, BUN 79 H, Creatinine 1.57 H, Glucose 290 H 07/12/21 09:30: WBC 8.30, Hgb 13.0, Hct 38.6, Plt Count 198 Imagings Data: EXAM DESCRIPTION: US - Extrem Venous W Compress Ken - 07/12/2021 11:02 am CLINICAL HISTORY: Swelling COMPARISON: None TECHNIQUE: Real-time sonographic evaluation of the bilateral lower extremity deep venous systems was performed. FINDINGS: Normal compressibility, flow augmentation, phasic flow and spontaneous flow is identified in both the left and right lower extremity deep venous systems. No intraluminal filling defects seen. IMPRESSION: No DVT in either lower extremity. EXAM DESCRIPTION: US - Renal Ultrasound-Complete - 07/12/2021 3:53 pm CLINICAL HISTORY: Acute on chronic renal disease COMPARISON: None FINDINGS: The right kidney measures 12 cm with a normal echotexture. 3 centimeter hypoechoic structure mid to upper pole right kidney The left kidney measures 9.5 cm with a normal echotexture. Hydronephrosis is not seen. Limited evaluation the bladder is the patient had recently voided IMPRESSION: 3 centimeter hypoechoic structure mid to upper pole right kidney probably lobulation. However, as a mass can have this appearance it is recommended that the patient have a nonemergent CT scan of the kidneys with and without IV contrast for further evaluation. If the creatinine stays persistently high an unenhanced MRI could be obtained instead Conclusions/Impression: EZEQUIEL may be CRS CKD III -No NSAIDs Right kidney 3cm lesion -Will need CT/ MRI evaluation HTN with CKD/ CHF -Continue Amlodipine and Losartan Diastolic CHF, A/C Chronic Lymphedema -Continue Losartan -Continue Bumex -Consider spironolactone DM II with hyperglycemia -RISS RLE Cellulitis/ Ulcer -Continue Cefepime and Vancomycin -Monitor Vanc level -Follow up with suregery Thank you kindly for the consultation. Case reviewed with Dr. Lind
[2021-07-12] MEDS ORDERED: GABAPENTIN 100 MG CAP PO ONE ×2 (22:56)
[2021-07-12] MEDS ORDERED: BUMETANIDE 1 MG TABLET ONE (23:02)
[2021-07-12] MEDS ORDERED: ATORVASTATIN 20 MG TAB ONE (23:30)
[2021-07-13] MEDS: INSULIN -REGULAR HUMAN 50 UNIT/0.5 ML ML SQ SCH ×4 (00:15→17:23)
[2021-07-13] MEDS ORDERED: INSULIN -REGULAR HUMAN 50 UNIT/0.5 ML ML ONE (00:45)
[2021-07-13 03:58] LABS: Absolute Lymphocytes (CBC) 1.3 K/uL (0.7-4.9); Basophils % 0.5 % (0-1.3); Hematocrit 32.2 % (36.0-45.0); MPV 11.1 fL (7.6-11.3); RBC Red Blood Cell Count 3.68 M/uL (3.86-4.86)
[2021-07-13 04:15] LABS: Albumin 2.5 g/dL (3.4-5.0); Bilirubin Total 0.3 mg/dL (0.2-1.0); Magnesium 2.5 mg/dL (1.8-2.4); Phosphorus 3.5 mg/dL (2.5-4.9); Potassium 4.2 mmol/L (3.5-5.1); Protein, Total 6.3 g/dL (6.4-8.2); Thyroid Stimulating Hormone 0.661 uIU/mL (0.360-3.740); Uric Acid 11.5 mg/dL (2.6-6.0)
--- NOTE | 2021-07-13 06:41 | P.PN ---
Subjective Date of Service: 07/13/21 Primary Care Provider: Dr. Goldberg; Cardiology-Dr. Baltazar Chief Complaint: Right lower extremity erythema Subjective: Other (Overall stable.) Physical Examination - Vital Signs Temperature: 97.8 F Blood Pressure: 163/61 Pulse: 52 Respirations: 18 Pulse Ox (%): 95 - Studies Laboratory Data (last 24 hrs) 07/12/21 09:30: PT 25.8 H, INR 2.23, APTT 35.6 07/12/21 09:30: Sodium 136, Potassium 4.1, BUN 79 H, Creatinine 1.57 H, Glucose 290 H 07/12/21 09:30: WBC 8.30, Hgb 13.0, Hct 38.6, Plt Count 198 Assessment & Plan Discharge Plan: Other Plan to discharge in: Greater than 2 days Physician Review Additional Text: COVID: Negative Venous Doppler: COMPARISON: None TECHNIQUE: Real-time sonographic evaluation of the bilateral lower extremity deep venous systems was performed. FINDINGS: Normal compressibility, flow augmentation, phasic flow and spontaneous flow is identified in both the left and right lower extremity deep venous systems. No intraluminal filling defects seen. IMPRESSION: No DVT in either lower extremity. Renal US: COMPARISON: None FINDINGS: The right kidney measures 12 cm with a normal echotexture. 3 centimeter hypoechoic structure mid to upper pole right kidney The left kidney measures 9.5 cm with a normal echotexture. Hydronephrosis is not seen. Limited evaluation the bladder is the patient had recently voided IMPRESSION: 3 centimeter hypoechoic structure mid to upper pole right kidney probably lobulation. However, as a mass can have this appearance it is recommended that the patient have a nonemergent CT scan of the kidneys with and without IV contrast for further evaluation. If the creatinine stays persistently high an unenhanced MRI could be obtained instead Physical Exam: GENERAL: The patient is a well-developed, well-nourished, in no apparent distress. Alert and oriented x3. VITAL SIGNS: Reviewed HEENT: Head is normocephalic and atraumatic. Extraocular muscles are intact. Pupils are equal, round, and reactive to light and accommodation. Nares appeared normal. Mouth is well hydrated and without lesions. Mucous membranes are moist. NECK: Supple. No carotid bruits. No lymphadenopathy or thyromegaly. LUNGS: Clear to auscultation. No crackles or wheezes are heard. HEART: Regular rate and rhythm, no appreciable gallops, rubs, murmurs or extra heart sounds ABDOMEN: Soft, nontender, and nondistended. Positive bowel sounds. No hepatosplenomegaly was noted. EXTREMITIES: Significant breakdown to the right lower extremity circumferentially below the knee. Erythema, significant edema to the lower extremity noted. Pain with palpation. NEUROLOGIC: The patient is oriented to person, place and time. Strength and sensation are grossly intact. Face is symmetric. SKIN: As above Impression: Right lower extremity cellulitis with chronic lymphedema Atrial fibrillation on chronic anticoagulation therapy Acute on chronic renal disease stage III with 3 cm hyperechoic structure to the mid upper right kidney pole on renal ultrasound Diabetes mellitus type 2 insulin-dependent Hypertension Hyperlipidemia Chronic diastolic CHF Diabetic neuropathy Hypothyroidism Morbid obesity, BMI above 40 Plan: Right lower extremity cellulitis with chronic lymphedema: Spoke with cardiology this morning. Patient cleared for debridement by surgery. Continue IV cefepime and vancomycin. Wound care to evaluate wound after debridement. Await recommendations by infectious disease. Infectious disease may recommend long- term acute care facility placement with IV antibiotic therapy. Will discuss further. Patient desires to go home at discharge. Will need to consider discharge home or LTAC pending treatment and evaluation by surgery and infectious disease. Atrial fibrillation on chronic anticoagulation therapy: Continue Xarelto 20 mg daily. Continue with Bumex 2 mg 1 pill twice daily. Continue amiodarone 100 mg daily. Acute on chronic renal disease stage III with 3 cm hyperechoic structure to the mid upper right kidney pole on renal ultrasound: Nephrology consulted. Will obtain MRI to further evaluate. Diabetes mellitus type 2 insulin-dependent: Continue Lantus. Will adjust Lantus according for better control. Sliding scale in place. Hemoglobin A1c 9.0 Hypertension: Continue losartan 25 mg daily, Norvasc 5 mg daily. Hyperlipidemia: Continue Lipitor 10 mg daily Chronic diastolic CHF: Continue Bumex 2 mg 1 pill twice daily Hypothyroidism: Continue with [place] Thyroid 45 mg daily Diabetic neuropathy: Restart Neurontin. Morbid obesity, BMI above 40: Address lifestyle modification education Code Status: DO NOT RESUSCITATE DVT prophylaxis: Xarelto Advanced Care Planning-30 minutes: Await recommendations by surgery and infectious disease. Time Spent Managing Pts Care (In Minutes): 55
[2021-07-13] MEDS ORDERED: CEFEPIME 1 GM/VIAL IV SCH (09:00)
[2021-07-13] MEDS ORDERED: AMLODIPINE 5 MG TAB PO SCH (09:00)
[2021-07-13] MEDS: BUMETANIDE 1 MG TABLET PO SCH ×2 (09:00→20:53)
[2021-07-13] MEDS ORDERED: VANCOMYCIN 1 GM in NA CHLORIDE 0.9% 500 ML IVPB SCH (09:00)
[2021-07-13] MEDS: LOSARTAN POTASSIUM 50 MG TABLET PO SCH (09:51)
[2021-07-13] MEDS: AMLODIPINE 5 MG TAB PO SCH (09:53)
[2021-07-13] MEDS: AMIODARONE HCL 200 MG TAB PO SCH (09:54)
--- NOTE | 2021-07-13 12:12 | P.CNS ---
Date of Consult: 07/13/21 Primary Care Provider: Dr. Goldberg; Cardiology-Dr. Baltazar Chief Complaint: Right lower extremity erythema History of Present Illness: The patient is a 70-year-old female with a past medical history of diabetes mellitus uncontrolled and insulin dependent, hypertension, atrial fibrillation on chronic anticoagulation therapy, CHF, hyperlipidemia, and bilateral lower extremity lymphedema who presented to the emergency department due to increasing erythema to her right lower extremity and venous wounds. She denies fever or chills. She reports weeping of the right lower extremity. Infectious disease has been consulted to treat the patient's cellulitis. Dr. Back on case, plans to take patient to OR for surgical debridement. The patient currently denies nausea, vomiting, diarrhea, shortness breath, chest pain. Patient reports tenderness to right lower extremity. Allergies codeine Allergy (Verified 12/23/13 18:12) Itching doxycycline Allergy (Verified 12/23/13 18:12) Nausea/Vomiting lidocaine Allergy (Verified 12/23/13 18:12) Anaphylaxis Penicillins Allergy (Verified 12/23/13 18:12) Anaphylaxis Sulfa (Sulfonamide Antibiotics) Allergy (Verified 12/23/13 18:12) Nausea/Vomiting Iodinated Contrast Media [Iodinated Contrast Media - IV Dye] Adverse Reaction (Verified 12/23/13 18:12) Hives/Rash Home Medications: Aspirin Chewable [Aspirin Chewable*] 1 tab PO DAILY 12/23/13 Gabapentin [Neurontin*] 2 tab PO TID 12/23/13 Ibuprofen [Motrin] 800 mg PO DAILY PRN 12/23/13 Lovastatin [Mevacor*] 20 mg PO BEDTIME 12/23/13 Magnesium Oxide [Mag 0X*] 400 mg PO DAILY 12/23/13 Meclizine HCl [Motion Sickness Relief] 1 tab PO TID PRN 12/23/13 Amiodarone HCl 1 tab PO DAILY 07/13/21 Amlodipine [Norvasc*] 1 tab PO Q48H 07/13/21 Benzonatate [Tessalon Perle*] 1 tab PO DAILY 07/13/21 Bumetanide 1 tab PO BID 07/13/21 Cholecalciferol (Vitamin D3) [Vitamin D3] 1 cap PO DAILY 07/13/21 Insulin Aspart [Novolog] 46 unit SQ BID 07/13/21 Insulin NPH Human Isophane [Novolin N] 46 unit SQ BID 07/13/21 Losartan Potassium 1 tab PO DAILY 07/13/21 Montelukast [Singulair*] 1 tab PO DAILY 07/13/21 Potassium Chloride [Micro-K] 1 cap PO DAILY 07/13/21 Rivaroxaban [Xarelto] 1 tab PO DAILY 07/13/21 Thyroid,Pork [[employer] Thyroid] 2.5 tab PO DAILY 07/13/21 - Past Medical/Surgical History Diabetic: Yes -: Chronic diastolic CHF -: Diabetes mellitus type 2 insulin-dependent -: Hypertension -: Hyperlipidemia -: Atrial fibrillation on chronic anticoagulation the -: Chronic lymphedema -: Obesity -: Jaw reconstruction for TMJ -: Cholecystectomy -: Tonsillectomy Psychosocial/ Personal History: Patient lives at home by herself. She has home health - Social History Smoking Status: Never smoker Alcohol use: Yes CD- Drugs: No Caffeine use: No Place of Residence: Home Review of Systems 10-point ROS is otherwise unremarkable Physical Examination Temp Pulse Resp BP Pulse Ox 97.8 F 62 18 155/60 H 95 07/13/21 06:41 07/13/21 09:53 07/13/21 06:41 07/13/21 09:53 07/13/21 06:41 General: Alert, In no apparent distress, Oriented x3, Obese HEENT: Atraumatic, Normocephalic Neck: Supple, 2+ carotid pulse no bruit Respiratory: Clear to auscultation bilaterally, Normal air movement Cardiovascular: No edema, Normal S1 S2 Gastrointestinal: Normal bowel sounds, Soft and benign, Non-distended Musculoskeletal: No clubbing, No swelling Integumentary: Pressure ulcer (Bilateral posterior mid thigh with minimal tissue breakdown, richard wound tissue black/purple discoloration), Other (Bilateral lower extremity lymphedema, right lower extremity erythema and venous ulcerations weeping serous fluid.) Conclusions/Impression: Antibiotics: Vancomycin Start: 07/13 Stop:-- Cefepime Start: 07/13 Stop:-- Assessment/plan Right lower extremity cellulitis Continue IV vancomycin and cefepime (day 1) venous Doppler negative. Surgery plans to take patient to OR for debridement. Bilateral lower extremity lymphedema Keep legs elevated and wrapped Bilateral posterior thigh stage II pressure wounds Apply Xeroform and cover with Mepilex. Diabetes mellitus type 2 uncontrolled insulin-dependent Hemoglobin A1c of 9.0%. Strict glucose monitoring in needed for proper wound healing and infection control. Continue low sliding scale insulin. Medical management per primary team Continue to monitor CBC and BMP Continue to monitor for signs infection Plan of care discussed with Dr. Cowan Thank you for consultation
[2021-07-13] MEDS: CEFEPIME 1 GM in NA CHLORIDE 0.9% 100 ML IV SCH (12:22)
[2021-07-13] MEDS: BUPIVACAINE 0.5% PF 10 ML VIAL ONE ×2 (12:35→12:44)
[2021-07-13] MEDS ORDERED: NA CHLORIDE 0.9% 1,000 ML ONE (12:43)
[2021-07-13] MEDS ORDERED: VANCOMYCIN 2 GM in NA CHLORIDE 0.9% 500 ML IVPB SCH ×2 (13:00→14:00)
[2021-07-13] MEDS ORDERED: COLLAGENASE 30 GM OINTMENT TOP ONE (13:25)
[2021-07-13] MEDS ORDERED: SCOPOLAMINE HYDROBROMIDE PATCH TD ONE (13:32)
--- NOTE | 2021-07-13 13:47 | P.BOP ---
Preoperative diagnosis: venous stasis ulcer bilateral lower extremities, celulitis, lymphedema, mo Postoperative diagnosis: same Primary procedure: 1. Subq Excisional debridment RLE infected venous stasis ulcer [id number] Secondary procedure: 2. Subq Excisional debridment LLE infected venous stasis ulcer [id number] Estimated blood loss: <20cc Specimen: none Findings: as above Anesthesia: General Complications: None Transferred to: Recovery Room Condition: Good
[2021-07-13] MEDS ORDERED: propofoL 200 MG/20 ML VIAL IV ONE (14:14)
[2021-07-13] MEDS ORDERED: FENTANYL CITR 100 MCG/2 ML ONE (14:14)
[2021-07-13] MEDS ORDERED: ONDANSETRON 4 MG/2 ML VIAL ONE (14:28)
[2021-07-13] MEDS ORDERED: MEPERIDINE HCL 25 MG/ML SYR IV PRN (14:36)
[2021-07-13] MEDS ORDERED: MEPERIDINE HCL 25 MG/ML SYR ONE (15:22)
[2021-07-13] MEDS ORDERED: FENTANYL CITR 100 MCG/2 ML IV PRN (16:00)
[2021-07-13] MEDS ORDERED: MECLIZINE HCL 25 MG PO PRN (16:46)
[2021-07-13] MEDS: VANCOMYCIN 2 GM in NA CHLORIDE 0.9% 500 ML IVPB SCH (17:23)
[2021-07-13] MEDS: RIVAROXABAN 20 MG TABLET PO SCH (17:23)
[2021-07-13] MEDS ORDERED: MECLIZINE HCL 12.5 MG TAB PO PRN (17:47)
[2021-07-13] MEDS: GABAPENTIN 100 MG CAP PO SCH (20:54)
[2021-07-13] MEDS: ATORVASTATIN 10 MG TAB PO SCH (20:54)
[2021-07-13] MEDS ORDERED: MUPIROCIN 2% OINT 22GM TUBE TOP SCH (21:00)
--- NOTE | 2021-07-13 22:06 | P.PN ---
Date of Service: 07/13/21 Vital Signs Temp Pulse Resp BP Pulse Ox 97.4 F 57 57 H 109/51 L 92 07/13/21 19:00 07/13/21 19:00 07/13/21 19:00 07/13/21 19:00 07/13/21 19:00 Medications Acetaminophen (Acetaminophen 500 Mg Tab) 500 mg PO Q4HP PRN PRN Reason: TEMP > 101' F Amiodarone HCl (Amiodarone Hcl 200 Mg Tab) 100 mg PO DAILY [facility] Last Admin: 07/13/21 09:54 Dose: 100 mg Documented by: Amlodipine Besylate (Amlodipine 5 Mg Tab) 5 mg PO DAILY [facility] Last Admin: 07/13/21 09:53 Dose: 5 mg Documented by: Atorvastatin Calcium (Atorvastatin 10 Mg Tab) 10 mg PO BEDTIME [facility] Last Admin: 07/13/21 20:54 Dose: 10 mg Documented by: Bumetanide (Bumetanide 1 Mg Tablet) 2 mg PO BID [facility] Last Admin: 07/13/21 20:53 Dose: Not Given Documented by: Cholecalciferol (Vitamin D 1000 Unit Tab) 1,000 unit PO DAILY [facility] Collagenase (Collagenase 30 Gm Ointment) 1 appl TOP DAILY [facility] Dextrose (D50w 25 Gm/50 Ml Syringe) 12.5 gm IV PRN PRN; Protocol PRN Reason: HYPOGLYCEMIA Fentanyl Citrate (Fentanyl Citr 100 Mcg/2 Ml) 25 mcg IV Q3H PRN PRN Reason: Pain scale 8-10 (Severe) Gabapentin (Gabapentin 100 Mg Cap) 200 mg PO TID [facility] Last Admin: 07/13/21 20:54 Dose: 200 mg Documented by: Glucagon (Glucagon 1 Mg/Vial) 1 mg IM 1X PRN; Protocol PRN Reason: HYPOGLYCEMIA Home Med (Thyroid,Pork [[employer] Thyroid]) 2.5 tab PO DAILY [facility] Cefepime HCl 1 gm/ Sodium (Chloride) 100 mls @ 200 mls/hr IV DAILY [facility] Last Admin: 07/13/21 12:22 Dose: 100 mls Documented by: Vancomycin HCl 2 gm/ Sodium (Chloride) 500 mls @ 250 mls/hr IVPB Q24H TRAV; Protocol Last Admin: 07/13/21 17:23 Dose: 500 mls Documented by: Insulin Human Regular (Insulin -Regular Human 50 Unit/0.5 Ml Ml) 0 unit SQ ACHS TRAV; Protocol Last Admin: 07/13/21 17:23 Dose: 2 unit Documented by: Losartan Potassium (Losartan Potassium 50 Mg Tablet) 25 mg PO DAILY [facility] Last Admin: 07/13/21 09:51 Dose: 25 mg Documented by: Magnesium Oxide (Magnesium Oxide 400 Mg Tab) 400 mg PO DAILY [facility] Meclizine HCl (Meclizine Hcl 12.5 Mg Tab) 25 mg PO TID PRN PRN Reason: DIZZINESS Montelukast Sodium (Montelukast 10 Mg Tab) 10 mg PO DAILY [facility] Ondansetron HCl (Ondansetron 4 Mg/2 Ml Vial) 4 mg IV Q6HP PRN PRN Reason: NAUSEA / VOMITING Rivaroxaban (Rivaroxaban 20 Mg Tablet) 20 mg PO DAILY AT SUPPER [facility] Last Admin: 07/13/21 17:23 Dose: 20 mg Documented by: Sodium Chloride (Flush Normal Saline 10 Ml) 10 ml IV BID [facility] Last Admin: 07/13/21 20:54 Dose: 10 ml Documented by: Tramadol/Acetaminophen (Tramadol 37.5mg/Apap 325mg Per Tab) 1 tab PO Q4H PRN PRN Reason: Pain scale 5-7 (Moderate) Microbiology Results 07/12/21 11:15 Blood - Blood Aerobic Blood Culture - Preliminary No growth in 24 hours. 07/12/21 11:15 Blood - Blood Anaerobic Blood Culture - Preliminary No growth in 24 hours. 07/12/21 09:30 Blood - Blood Aerobic Blood Culture - Preliminary No growth in 24 hours. 07/12/21 09:30 Blood - Blood Anaerobic Blood Culture - Preliminary No growth in 24 hours. Assessment/ Plan: Nephrology Progress Note Feeling better today. Debridement today. No chest pain or dyspnea No acute events overnight Vitals, medications blood work and imaging reviewed in the chart General: In no apparent distress, Oriented x3, Cooperative HEENT: Atraumatic Neck: Supple Respiratory: Clear to auscultation bilaterally Cardiovascular: Regular rate/rhythm, Edema Gastrointestinal: Soft and benign, Non-distended Musculoskeletal: No clubbing, Erythema, Tenderness, Warmth Integumentary: No cyanosis, Skin breakdown, Skin lesion Neurological: Normal speech Laboratory Data (last 24 hrs) 07/12/21 09:30: PT 25.8 H, INR 2.23, APTT 35.6 07/12/21 09:30: Sodium 136, Potassium 4.1, BUN 79 H, Creatinine 1.57 H, Glucose 290 H 07/12/21 09:30: WBC 8.30, Hgb 13.0, Hct 38.6, Plt Count 198 Imagings Data: EXAM DESCRIPTION: US - Extrem Venous W Compress Ken - 07/12/2021 11:02 am CLINICAL HISTORY: Swelling COMPARISON: None TECHNIQUE: Real-time sonographic evaluation of the bilateral lower extremity deep venous systems was performed. FINDINGS: Normal compressibility, flow augmentation, phasic flow and spontaneous flow is identified in both the left and right lower extremity deep venous systems. No intraluminal filling defects seen. IMPRESSION: No DVT in either lower extremity. EXAM DESCRIPTION: US - Renal Ultrasound-Complete - 07/12/2021 3:53 pm CLINICAL HISTORY: Acute on chronic renal disease COMPARISON: None FINDINGS: The right kidney measures 12 cm with a normal echotexture. 3 centimeter hypoechoic structure mid to upper pole right kidney The left kidney measures 9.5 cm with a normal echotexture. Hydronephrosis is not seen. Limited evaluation the bladder is the patient had recently voided IMPRESSION: 3 centimeter hypoechoic structure mid to upper pole right kidney probably lobulation. However, as a mass can have this appearance it is recommended that the patient have a nonemergent CT scan of the kidneys with and without IV contrast for further evaluation. If the creatinine stays persistently high an unenhanced MRI could be obtained instead Conclusions/Impression: EZEQUIEL may be CRS CKD III -No NSAIDs Right kidney 3cm lesion -Will need CT/ MRI evaluation HTN with CKD/ CHF -Continue Amlodipine and Losartan Diastolic CHF, A/C Chronic Lymphedema -Continue Losartan -Continue Bumex -Consider spironolactone DM II with hyperglycemia -RISS RLE Cellulitis/ Ulcer -Continue Cefepime and Vancomycin -Monitor Vanc level -Follow up with surgery
--- NOTE | 2021-07-14 01:09 | OP ---
Date of Procedure: 07/13/2021 Surgeon: Omar Back MD Preoperative Diagnoses: Venous stasis, bilateral lower extremities with cellulitis, bilateral lower extremity, lymphedema, with morbid obesity. Postoperative Diagnoses: Venous stasis, bilateral lower extremities with cellulitis, bilateral lower extremity, lymphedema, with morbid obesity. Procedures: 1.Subcutaneous excisional debridement of right lower extremity infected venous stasis ulcers about 4 0 x 20 cm. 2.Subcutaneous excisional debridement of the left lower extremity, infected venous stasis ulcer abou t 12 x 12 cm. Findings: Large lymphedema, venous stasis disease, multiple blisters present, cellulitis present of the entire lower extremity. Patient also has ulcers on the thigh bilaterally, but does not need any debridement at this moment, although offloading will be very important. Anesthesia: General plus local. Complications: None. This is a case of a female, who comes to us with chronic history of venous sta sis disease and lymphedema, morbidly obese, with bilateral lower extremity cellulitis, multiple ulcer s, not only in the lower extremities, but also in the thigh region bilaterally and buttocks, admitted after seen this redness on the right lower extremity with blisters bilaterally. Indications: Benefits, alternatives, and risks of bilateral debridement of lower extremities were fu lly explained which include, but not limited to infection, bleeding, damage to adjacent structures, a nesthesia complication, recurrence, ND, and even . She also understands the importance of lymph edema control, the importance of fluid retention treatments, and problems of losing weight and offloa ding, also diet. She understands [facility] and she has to fol low with the lymphedema clinic, which we do not have one at this moment in this institution. She has signed a consent. Procedure In Detail: The patient was brought to the operating room, placed in supine position. A ti me-out was called. Bilateral lower extremities were prepped and draped in sterile fashion. Using a combination of curette, 11 blade, and pickups, we proceeded to do sequential debridement of both side s. All the bleeders were removed. Devitalized tissue and tissue were removed exposing the subc utaneous tissue underneath and the area on the right size about 40 x 20 cm and in the left side was 1 2 x 12 cm. The right side was circumferential. The patient tolerated the procedure well. Hemostasi s was obtained with pressure. Then, we put Santyl and dressings over the area. The patient tolerate d the procedure well. The patient on her way to Recovery in stable condition. ALEXANDRE/TANESHA Voice ID: [id number] Report ID: [id number]
--- NOTE | 2021-07-14 05:58 | P.PN ---
Subjective Date of Service: 07/14/21 Primary Care Provider: Dr. Goldberg; Cardiology-Dr. Baltazar Chief Complaint: Right lower extremity erythema Subjective: Improving, Doing well Physical Examination - Vital Signs Temperature: 97.6 F Blood Pressure: 115/60 Pulse: 60 Respirations: 17 Pulse Ox (%): 94 Assessment & Plan Discharge Plan: Home Plan to discharge in: 48 Hours Physician Review Additional Text: COVID: Negative Venous Doppler: COMPARISON: None TECHNIQUE: Real-time sonographic evaluation of the bilateral lower extremity deep venous systems was performed. FINDINGS: Normal compressibility, flow augmentation, phasic flow and spontaneous flow is identified in both the left and right lower extremity deep venous systems. No intraluminal filling defects seen. IMPRESSION: No DVT in either lower extremity. Renal US: COMPARISON: None FINDINGS: The right kidney measures 12 cm with a normal echotexture. 3 centimeter hypoechoic structure mid to upper pole right kidney The left kidney measures 9.5 cm with a normal echotexture. Hydronephrosis is not seen. Limited evaluation the bladder is the patient had recently voided IMPRESSION: 3 centimeter hypoechoic structure mid to upper pole right kidney probably lobulation. However, as a mass can have this appearance it is recommended that the patient have a nonemergent CT scan of the kidneys with and without IV contrast for further evaluation. If the creatinine stays persistently high an unenhanced MRI could be obtained instead Surgery: Date of Procedure: 07/13/2021 Surgeon: Omar Back MD Preoperative Diagnoses: Venous stasis, bilateral lower extremities with cellulitis, bilateral lower extremity, lymphedema, with morbid obesity. Postoperative Diagnoses: Venous stasis, bilateral lower extremities with cellulitis, bilateral lower extremity, lymphedema, with morbid obesity. Procedures: 1. Subcutaneous excisional debridement of right lower extremity infected venous stasis ulcers about 40 x 20 cm. 2. Subcutaneous excisional debridement of the left lower extremity, infected venous stasis ulcer about 12 x 12 cm. Findings: Large lymphedema, venous stasis disease, multiple blisters present, cellulitis present of the entire lower extremity. Patient also has ulcers on the thigh bilaterally, but does not need any debridement at this moment, although offloading will be very important. Anesthesia: General plus local. Complications: None. Physical Exam: GENERAL: Patient doing well at this time. No complaints noted. VITAL SIGNS: Reviewed HEENT: Neck supple LUNGS: Clear to auscultation. No crackles or wheezes are heard. HEART: Regular rate and rhythm, no appreciable gallops, rubs, murmurs or extra heart sounds ABDOMEN: Soft, nontender, and nondistended. Positive bowel sounds. No hepatosplenomegaly was noted. EXTREMITIES: Bandages to the lower extremity noted. No significant erythema noted. Swelling to the lower extremities improved. NEUROLOGIC: The patient is oriented to person, place and time. Strength and sensation are grossly intact. Face is symmetric. SKIN: As above Impression: Bilateral lower extremity cellulitis with venous stasis and chronic lymphedema status post subcutaneous excisional debridement of right lower extremity infected venous stasis about 40 x 20 cm, subcutaneous excisional debridement of the left lower extremity infected venous stasis ulcer about 12 x 12 cm Atrial fibrillation on chronic anticoagulation therapy Acute on chronic renal disease stage III with 3 cm hyperechoic structure to the mid upper right kidney pole on renal ultrasound Diabetes mellitus type 2 insulin-dependent Hypertension Hyperlipidemia Chronic diastolic CHF Diabetic neuropathy Hypothyroidism Seasonal allergies Ulcers to the thigh bilateral Morbid obesity, BMI above 40 Plan: Bilateral lower extremity cellulitis with venous stasis and chronic lymphedema status post subcutaneous excisional debridement of right lower extremity infected venous stasis about 40 x 20 cm, subcutaneous excisional debridement of the left lower extremity infected venous stasis ulcer about 12 x 12 cm: Patient doing well at this time. Patient status post debridement. Swelling and erythema has significantly improved. Continue with wound care. We'll have patient be taught on wound care along with family. Continue IV antibiotic therapy. Will discuss with infectious disease. Anticipate likely discharge in the next 1 to 2 days with oral antibiotic therapy. Will help arrange for home health and physical therapy at discharge. Patient may also benefit with outpatient physical therapy. Will need to get her diabetes better controlled. We'll continue to monitor closely. Await recommendations by surgery and infectious disease. Atrial fibrillation on chronic anticoagulation therapy: Overall stable. Continue Xarelto 20 mg daily. Continue with Bumex 2 mg 1 pill twice daily. Continue amiodarone 100 mg daily. Acute on chronic renal disease stage III with 3 cm hyperechoic structure to the mid upper right kidney pole on renal ultrasound: Overall stable. Will obtain MRI to evaluate right upper pole kidney structure. Patient will need premedication for agitation prior to MRI. Diabetes mellitus type 2 insulin-dependent: Will restart her insulin NPH at 25 units subcu twice daily. Will monitor and adjust appropriately. Increase sliding scale. Hemoglobin A1c 9.0 Hypertension: Blood pressure stable continue losartan 25 mg daily, Norvasc 5 mg daily. Hyperlipidemia: Continue Lipitor 10 mg daily Chronic diastolic CHF: Continue Bumex 2 mg 1 pill twice daily Hypothyroidism: Continue with [place] Thyroid 45 mg daily Diabetic neuropathy: Continue Neurontin 200 mg 3 times a day. Ulcers to the thigh bilateral: Continue with wound care Seasonal allergies: Continue with singular 10 mg daily Morbid obesity, BMI above 40: Address lifestyle modification education Code Status: DO NOT RESUSCITATE DVT prophylaxis: Xarelto Advanced Care Planning-30 minutes: Home at discharge with home health and physical therapy. Time Spent Managing Pts Care (In Minutes): 55
[2021-07-14 07:00] LABS: Absolute Lymphocytes (CBC) 1.2 K/uL (0.7-4.9); Basophils % 0.5 % (0-1.3); Hematocrit 36.7 % (36.0-45.0); Lymphocytes % 17.3 % (15.3-44.8); MPV 10.7 fL (7.6-11.3); RBC Red Blood Cell Count 4.12 M/uL (3.86-4.86)
[2021-07-14] MEDS: INSULIN -REGULAR HUMAN 50 UNIT/0.5 ML ML SQ SCH ×5 (07:30→21:00)
[2021-07-14 07:31] LABS: Albumin 2.8 g/dL (3.4-5.0); Bilirubin Total 0.5 mg/dL (0.2-1.0); Magnesium 2.4 mg/dL (1.8-2.4); Potassium 4.7 mmol/L (3.5-5.1); Protein, Total 7.3 g/dL (6.4-8.2)
[2021-07-14] MEDS ORDERED: LORAZEPAM 0.5 MG TABLET PO PRN (08:21)
[2021-07-14] MEDS: COLLAGENASE 30 GM OINTMENT TOP SCH (08:56)
[2021-07-14] MEDS: VITAMIN D 1000 UNIT TAB PO SCH (08:57)
[2021-07-14] MEDS: ASPIRIN 81 MG CHEWABLE TABLET PO SCH (08:57)
[2021-07-14] MEDS: BUMETANIDE 1 MG TABLET PO SCH ×2 (08:58→21:00)
[2021-07-14] MEDS: GABAPENTIN 100 MG CAP PO SCH ×3 (08:59→21:02)
[2021-07-14] MEDS: MAGNESIUM OXIDE 400 MG TAB PO SCH (09:00)
[2021-07-14] MEDS: CEFEPIME 1 GM in NA CHLORIDE 0.9% 100 ML IV SCH (09:00)
[2021-07-14] MEDS: THYROID PORK 15 MG PO SCH (09:00)
[2021-07-14] MEDS ORDERED: HOME MED 1 EA UNK (Cholecalciferol (Vitamin D3) [Vitamin D3] 1,000 UNIT Capsule) PO SCH (09:00)
[2021-07-14] MEDS: MONTELUKAST 10 MG TAB PO SCH (09:00)
[2021-07-14] MEDS: AMIODARONE HCL 200 MG TAB PO SCH (09:01)
[2021-07-14] MEDS: LOSARTAN POTASSIUM 50 MG TABLET PO SCH (09:01)
[2021-07-14] MEDS: AMLODIPINE 5 MG TAB PO SCH (09:01)
[2021-07-14] MEDS: NPH (HUMAN) 100 UNITS/ML INSULIN SQ SCH ×2 (09:05→21:00)
--- NOTE | 2021-07-14 12:33 | PN ---
Date of Progress Note: 07/14/2021 Subjective: Status post debridement bilateral lower extremity. The patient is doing well. No complaint. No nausea. She states she feels great. She feels a lot b patric than many weeks ago and she has a good sleep. Review of Systems: Ten points otherwise unremarkable. Objective: Abdomen: Soft and depressible. Extremities: Intact surgical site. Plan: Continue antibiotics per primary doctor. Fluid control, leg elevation. When the patient gets discharged home, she was advised to [facility]. ALEXANDRE/TANESHA Voice ID: [id number] Report ID: [id number]
--- NOTE | 2021-07-14 14:26 | PN ---
Date of Progress Note: 07/14/2021 Subjective: The patient was seen and examined. She feels much better. Her legs are feeling better and she is able to move them much better. Pain is also improving. Physical Examination: Vital Signs: Have been reviewed and are stable. General Examination: She appears in no acute distress. She is a morbidly obese female. HEENT: Atraumatic head. Lungs: Clear. Abdomen: Soft and nontender. Extremities: Bilateral lower extremity in wraps was noted. Laboratory Data: At this time are showing sodium of 141, potassium of 4.7, chloride of 104, BUN of 5 3, and creatinine of 1.49, which is improving from 1.57 the other day. Blood sugars are running in t he 200s to 300 range. Her hemoglobin, hematocrit, and platelet count are stable. No leukocytosis wa s noted. Medications: At this time include amlodipine 5 mg a day, amiodarone 100 mg daily, Bumex 2 mg b.i.d., losartan 25 mg a day, vancomycin 2 g every 24 hours, Xarelto, and [employer] Thyroid as well as tramadol. Impression: 1.Aklft-[id number] renal insufficiency currently with stable renal function. The patient possibly h as some underlying cardiorenal syndrome with fluctuating renal function related to diuresis and recur rent episodes of cellulitis leading to antibiotic use that is also affecting her kidney function. 2.Venous stasis ulcer. The patient had excisional debridement of the right lower extremity and is c urrently receiving antibiotics and wound care. 3.Atrial fibrillation, on chronic anticoagulation. 4.Type 2 diabetes, insulin dependent. 5.Chronic diastolic heart failure, which is currently stable on Bumex. 6.Hypothyroidism, on [employer] Thyroid. 7.Morbid obesity. 8.Concern for hyperechoic structure noted on the mid upper right kidney pole on the renal ultrasound . Plan: The patient's renal function is overall stable. We will continue diuresis with p.o. Bumex at this time. Continue antibiotics with vancomycin and monitor wounds closely. The patient on kidney d isease risk factors and counseled on NSAID use. The patient is very claustrophobic and is apprehensi ve of getting the MRI at this time. I have discussed with Dr. Lind about getting a CT scan without contrast for further evaluation of the renal mass noted on her upper pole of the right kidney. We r equest a CT scan without contrast and monitor the mass and possibly needs to have interval imaging as well. I discussed this with Dr. Lee, who will be following her as well. In the meanwhile, avoi d further hypotension and nephrotoxins, and monitor renal function closely and we will follow up. REBECA/TANESHA Voice ID: [id number] Report ID: [id number]
--- NOTE | 2021-07-14 17:36 | RAD REPORT ---
EXAM DESCRIPTION: CTAbdomen Pelvis Wo Contrast - 07/14/2021 3:45 pm CLINICAL HISTORY: . evaluate possible right kidney mass COMPARISON: Renal Ultrasound-Complete dated 07/12/2021 TECHNIQUE: All CT scans are performed using dose optimization technique as appropriate and may include automated exposure control or mA/KV adjustment according to patient size. FINDINGS: Lower chest: Cardiomegaly. Liver: No acute abnormality or suspicious lesions. Biliary: Cholecystectomy. Stomach: No significant focal abnormality. Duodenum: No significant focal abnormality. Pancreas: No significant abnormality. Spleen: No significant abnormality. Adrenal: No suspicious lesions. Kidney/ureter: No hydronephrosis. No renal calculi. Retroperitoneum: No retroperitoneal adenopathy. Vascular: No aneurysm. Atherosclerosis Bowel: No significant focal abnormality. Normal appendix. Peritoneum: No ascites or free air. Small fat containing umbilical hernia . Bladder: Grossly unremarkable. Reproductive: No adnexal masses. Calcified uterine fibroid. Bones: No acute fracture. Multilevel degenerative changes are present in the spine. Other: n/a IMPRESSION: No acute intra-abdominal or pelvic finding. Though limited without IV contrast, no renal mass identified.
[2021-07-14] MEDS: VANCOMYCIN 2 GM in NA CHLORIDE 0.9% 500 ML IVPB SCH (18:27)
[2021-07-14] MEDS: RIVAROXABAN 20 MG TABLET PO SCH (18:27)
[2021-07-14] MEDS: ATORVASTATIN 10 MG TAB PO SCH (21:00)
--- NOTE | 2021-07-15 06:05 | P.PN ---
Subjective Date of Service: 07/15/21 Primary Care Provider: Dr. Goldberg; Cardiology-Dr. Baltazar Chief Complaint: Right lower extremity erythema Subjective: Improving, Doing well Physical Examination - Vital Signs Temperature: 97.1 F Blood Pressure: 101/52 Pulse: 55 Respirations: 18 Pulse Ox (%): 96 Assessment & Plan Discharge Plan: Home Plan to discharge in: 24 Hours Physician Review Additional Text: COVID: Negative Venous Doppler: COMPARISON: None TECHNIQUE: Real-time sonographic evaluation of the bilateral lower extremity deep venous systems was performed. FINDINGS: Normal compressibility, flow augmentation, phasic flow and spontaneous flow is identified in both the left and right lower extremity deep venous systems. No intraluminal filling defects seen. IMPRESSION: No DVT in either lower extremity. Renal US: COMPARISON: None FINDINGS: The right kidney measures 12 cm with a normal echotexture. 3 centimeter hypoechoic structure mid to upper pole right kidney The left kidney measures 9.5 cm with a normal echotexture. Hydronephrosis is not seen. Limited evaluation the bladder is the patient had recently voided IMPRESSION: 3 centimeter hypoechoic structure mid to upper pole right kidney probably lobulation. However, as a mass can have this appearance it is recommended that the patient have a nonemergent CT scan of the kidneys with and without IV contrast for further evaluation. If the creatinine stays persistently high an unenhanced MRI could be obtained instead Surgery: Date of Procedure: 07/13/2021 Surgeon: Omar Back MD Preoperative Diagnoses: Venous stasis, bilateral lower extremities with cellulitis, bilateral lower extremity, lymphedema, with morbid obesity. Postoperative Diagnoses: Venous stasis, bilateral lower extremities with cellulitis, bilateral lower extremity, lymphedema, with morbid obesity. Procedures: 1. Subcutaneous excisional debridement of right lower extremity infected venous stasis ulcers about 40 x 20 cm. 2. Subcutaneous excisional debridement of the left lower extremity, infected venous stasis ulcer about 12 x 12 cm. Findings: Large lymphedema, venous stasis disease, multiple blisters present, cellulitis present of the entire lower extremity. Patient also has ulcers on the thigh bilaterally, but does not need any debridement at this moment, although offloading will be very important. Anesthesia: General plus local. Complications: None. CT AB without contrast: COMPARISON: Renal Ultrasound-Complete dated 07/12/2021 TECHNIQUE: All CT scans are performed using dose optimization technique as appropriate and may include automated exposure control or mA/KV adjustment according to patient size. FINDINGS: Lower chest: Cardiomegaly. Liver: No acute abnormality or suspicious lesions. Biliary: Cholecystectomy. Stomach: No significant focal abnormality. Duodenum: No significant focal abnormality. Pancreas: No significant abnormality. Spleen: No significant abnormality. Adrenal: No suspicious lesions. Kidney/ureter: No hydronephrosis. No renal calculi. Retroperitoneum: No retroperitoneal adenopathy. Vascular: No aneurysm. Atherosclerosis Bowel: No significant focal abnormality. Normal appendix. Peritoneum: No ascites or free air. Small fat containing umbilical hernia . Bladder: Grossly unremarkable. Reproductive: No adnexal masses. Calcified uterine fibroid. Bones: No acute fracture. Multilevel degenerative changes are present in the spine. IMPRESSION: No acute intra-abdominal or pelvic finding. Though limited without IV contrast, no renal mass identified. Physical Exam: GENERAL: Patient doing well at this time. No complaints noted. VITAL SIGNS: Reviewed HEENT: Neck supple LUNGS: Clear to auscultation. No crackles or wheezes are heard. HEART: Regular rate and rhythm, no appreciable gallops, rubs, murmurs or extra heart sounds ABDOMEN: Soft, nontender, and nondistended. Positive bowel sounds. No hepatosplenomegaly was noted. EXTREMITIES: Bandages to the lower extremity noted. No significant erythema noted. Swelling to the lower extremities improved. NEUROLOGIC: The patient is oriented to person, place and time. Strength and sensation are grossly intact. Face is symmetric. SKIN: As above Impression: Bilateral lower extremity cellulitis with venous stasis and chronic lymphedema status post subcutaneous excisional debridement of right lower extremity infected venous stasis about 40 x 20 cm, subcutaneous excisional debridement of the left lower extremity infected venous stasis ulcer about 12 x 12 cm Atrial fibrillation on chronic anticoagulation therapy Acute on chronic renal disease stage III with 3 cm hyperechoic structure to the mid upper right kidney pole on renal ultrasound Diabetes mellitus type 2 insulin-dependent Hypertension Hyperlipidemia Chronic diastolic CHF Diabetic neuropathy Hypothyroidism Seasonal allergies Ulcers to the thigh bilateral Morbid obesity, BMI above 40 Plan: Bilateral lower extremity cellulitis with venous stasis and chronic lymphedema status post subcutaneous excisional debridement of right lower extremity infected venous stasis about 40 x 20 cm, subcutaneous excisional debridement of the left lower extremity infected venous stasis ulcer about 12 x 12 cm: Patient doing well. Patient status post debridement. Swelling and erythema improved. Cultures pending. Patient remains on IV vancomycin and cefepime. Patient desires home health and physical therapy at discharge. Social work consulted to help with this. We will have patient be taught on wound care. Podiatry to come tomorrow to evaluate feet and toenails. Spoke with podiatry concerning this. Diabetes better controlled. Overall stable. Anticipate likely discharge tomorrow with home health and physical therapy with continued or antibiotic therapy. Await recommendations by infectious disease. Patient can likely be followed up at the wound care center as an outpatient. Patient plans to establish care locally with Dr. Mattson. I will turn the service over to the hospitalist team tomorrow. I will go plan of care with him. Atrial fibrillation on chronic anticoagulation therapy: Overall stable. Continue Xarelto 20 mg daily. Continue with Bumex 2 mg 1 pill twice daily. Continue amiodarone 100 mg daily. Acute on chronic renal disease stage III with 3 cm hyperechoic structure to the mid upper right kidney pole on renal ultrasound: CT scan without contrast unremarkable. Patient still may require MRI as an outpatient to further evaluate. Due to her weight and anxiety patient preferred to have this done as an outpatient with open MRI. Diabetes mellitus type 2 insulin-dependent: Continue with insulin NPH at 25 units subcu twice daily. Will monitor and adjust appropriately. Hemoglobin A1c 9.0 Hypertension: Blood pressure stable. Continue losartan 25 mg daily, Norvasc 5 mg daily. Hyperlipidemia: Continue Lipitor 10 mg daily Chronic diastolic CHF: Continue Bumex 2 mg 1 pill twice daily Hypothyroidism: Continue with [place] Thyroid 45 mg daily Diabetic neuropathy: Continue Neurontin 200 mg 3 times a day. Ulcers to the thigh bilateral: Continue with wound care Seasonal allergies: Continue with singular 10 mg daily Morbid obesity, BMI above 40: Continue to address lifestyle modification education Code Status: DO NOT RESUSCITATE DVT prophylaxis: Xarelto Advanced Care Planning-30 minutes: Home at discharge with home health and physical therapy. Time Spent Managing Pts Care (In Minutes): 55
[2021-07-15 06:12] VITALS: BMI 51.0
[2021-07-15 06:12] LABS: Absolute Lymphocytes (CBC) 1.3 K/uL (0.7-4.9); Basophils % 0.5 % (0-1.3); Hematocrit 35.5 % (36.0-45.0); MPV 10.9 fL (7.6-11.3); RBC Red Blood Cell Count 4.01 M/uL (3.86-4.86)
[2021-07-15 06:28] LABS: Albumin 2.6 g/dL (3.4-5.0); Bilirubin Total 0.3 mg/dL (0.2-1.0); Magnesium 2.2 mg/dL (1.8-2.4); Potassium 4.1 mmol/L (3.5-5.1); Protein, Total 6.7 g/dL (6.4-8.2)
[2021-07-15] MEDS: INSULIN -REGULAR HUMAN 50 UNIT/0.5 ML ML SQ SCH ×4 (07:30→22:36)
[2021-07-15] MEDS: THYROID PORK 15 MG PO SCH (08:47)
[2021-07-15] MEDS: MONTELUKAST 10 MG TAB PO SCH (08:48)
[2021-07-15] MEDS: CEFEPIME 1 GM in NA CHLORIDE 0.9% 100 ML IV SCH (08:48)
[2021-07-15] MEDS: AMLODIPINE 5 MG TAB PO SCH (08:48)
[2021-07-15] MEDS: ASPIRIN 81 MG CHEWABLE TABLET PO SCH (08:49)
[2021-07-15] MEDS: LOSARTAN POTASSIUM 50 MG TABLET PO SCH (08:49)
[2021-07-15] MEDS: AMIODARONE HCL 200 MG TAB PO SCH (08:49)
[2021-07-15] MEDS: BUMETANIDE 1 MG TABLET PO SCH ×2 (08:49→21:00)
[2021-07-15] MEDS: NPH (HUMAN) 100 UNITS/ML INSULIN SQ SCH ×2 (08:50→21:00)
[2021-07-15] MEDS: VITAMIN D 1000 UNIT TAB PO SCH (08:50)
[2021-07-15] MEDS: MAGNESIUM OXIDE 400 MG TAB PO SCH (08:50)
[2021-07-15] MEDS: GABAPENTIN 100 MG CAP PO SCH ×3 (08:50→22:35)
[2021-07-15] MEDS: COLLAGENASE 30 GM OINTMENT TOP SCH (08:52)
[2021-07-15] MEDS: VANCOMYCIN 2 GM in NA CHLORIDE 0.9% 500 ML IVPB SCH (17:56)
[2021-07-15] MEDS: RIVAROXABAN 20 MG TABLET PO SCH (17:56)
--- NOTE | 2021-07-15 18:19 | CON ---
Date of Consultation: 07/13/2021 Reason For Consultation: Cardiac clearance for leg debridement by Dr. Back. History Of Present Illness: Ms. Ferrera is a 70-year-old white woman, who has a history of cellulitis , atrial fibrillation, hypertension, dyslipidemia, diabetes, chronic diastolic congestive heart failu re. She came in with cellulitis, needed debridement. Had seen Dr. Baltazar recently. Echocardiogram is pending prior to clearance, but the patient has no cardiac symptoms reported. Denied chest pain, nausea, vomiting, diaphoresis, PND, orthopnea, pedal edema, palpitations, or syncope. Past Medical History: As stated above. Allergies: SHE IS ALLERGIC TO SULFA, CODEINE, PENICILLIN, LIDOCAINE, IODINE. Review of Systems: Negative. Social History: Negative. Family History: Noncontributory. Medications: At home include Bumex, amiodarone, Xarelto, aspirin, Norvasc, Lipitor, insulin, and los isaiah. Physical Examination: General: She is very pleasant, no acute distress. Vital Signs: Stable, sinus rhythm. HEENT: Negative. Neck: Supple with no bruit. Chest: Clear. Cardiac: Revealed a regular rhythm and rate. No murmurs, gallops, or rubs. Abdomen: Obese, but benign. Extremities: Revealed cellulitis and lymphedema. Diagnostic Data: Showed a creatinine of 1.49. Venous Doppler was negative. Renal ultrasound showed a possible mass. Glucose was 327. EKG is normal. Echocardiogram that was done was actually normal . Impression And Plan: 1.The patient with history of chronic diastolic congestive heart failure, chronic paroxysmal atrial fibrillation, and sinus rhythm, on amiodarone and Xarelto. 2.Diabetes, hypertension, dyslipidemia. She is asymptomatic. Has a normal echo, unremarkable EKG. No cardiac symptoms. I think she is cleared to undergo her debridement. I will be available for qu estions if the need arises. She may need to have her kidneys look that down the road. She follows u p with Dr. Baltazar and I will make sure she does that postoperatively. If she has any problems posto peratively, I will be available for questions. Otherwise, I will sign off her case for now. Hold he r Xarelto preoperatively. Resume her Xarelto after surgery. MARY/TANESHA Voice ID: [id number] Report ID: [id number]
[2021-07-15] MEDS: NYSTATIN PWDR 100000 UNIT/GM TOP SCH (21:00)
[2021-07-15] MEDS: ATORVASTATIN 10 MG TAB PO SCH (22:32)
[2021-07-16 06:13] LABS: Magnesium 2.2 mg/dL (1.8-2.4); Potassium 3.9 mmol/L (3.5-5.1)
--- NOTE | 2021-07-16 07:27 | ECHO ---
HEIGHT: 5 ft 8 in WEIGHT: 335 lb 4.8 oz DATE OF STUDY: 07/13/[address]: Vadim Lind DO 2-DIMENSIONAL: YES M.MODE: YES DOPPLER: YES COLOR FLOW: YES TDS: NO PORTABLE: NO DEFINITY: NO BUBBLE STUDY: NO DIAGNOSIS: CONGESTIVE HEART FAILURE CARDIAC HISTORY: CATHERIZATION: YES SURGERY: NO PROSTHETIC VALVE: NO PACEMAKER: NO MEASUREMENTS (cm) DIASTOLIC (NORMALS) SYSTOLIC (NORMALS) IVSd 1.1 (0.6-1.2) LA Diam 2.7 (1.9-4.0) LVEF 68% LVIDd 4.7 (3.5-5.7) LVIDs 2.9 (2.0-3.5) %FS 38% LVPWd 1.3 (0.6-1.2) Ao Diam 2.8 (2.0-3.7) 2 DIMENSIONAL ASSESSMENT: RIGHT ATRIUM: NORMAL LEFT ATRIUM: NORMAL RIGHT VENTRICLE: NORMAL LEFT VENTRICLE: NORMAL TRICUSPID VALVE: NORMAL MITRAL VALVE: NORMAL PULMONIC VALVE: NORMAL AORTIC VALVE: NORMAL PERICARDIAL EFFUSION: NONE AORTIC ROOT: NORMAL LEFT VENTRICULAR WALL MOTION: NORMAL DOPPLER/COLOR FLOW: MILD TRICUSPID REGURGITATION. COMMENTS: NORMAL LEFT VENTRICULAR SIZE AND FUNCTION. NO WALL MOTION ABNORMALITY. NO EFFUSION. MILD TRICUSPID REGURGITATION. NORMAL RIGHT VENTRICULAR SYSTOLIC PRESSURE. TECHNOLOGIST: Maren LIMA
[2021-07-16] MEDS: INSULIN -REGULAR HUMAN 50 UNIT/0.5 ML ML SQ SCH ×4 (07:30→21:00)
[2021-07-16] MEDS: ASPIRIN 81 MG CHEWABLE TABLET PO SCH (08:35)
[2021-07-16] MEDS: CEFEPIME 1 GM in NA CHLORIDE 0.9% 100 ML IV SCH (08:35)
[2021-07-16] MEDS: MONTELUKAST 10 MG TAB PO SCH (08:35)
[2021-07-16] MEDS: BUMETANIDE 1 MG TABLET PO SCH ×2 (08:36→21:00)
[2021-07-16] MEDS: MAGNESIUM OXIDE 400 MG TAB PO SCH (08:37)
[2021-07-16] MEDS: GABAPENTIN 100 MG CAP PO SCH ×3 (08:37→20:01)
[2021-07-16] MEDS: AMIODARONE HCL 200 MG TAB PO SCH (08:37)
[2021-07-16] MEDS: VITAMIN D 1000 UNIT TAB PO SCH (08:38)
[2021-07-16] MEDS: LOSARTAN POTASSIUM 50 MG TABLET PO SCH (08:38)
--- NOTE | 2021-07-16 08:38 | P.CNS ---
Date of Consult: 07/16/21 Reason for Consult: Painful toenails Requesting Physician: Whitney Silva Primary Care Provider: Dr. Goldberg; Cardiology-Dr. Baltazar Chief Complaint: Right lower extremity erythema Allergies codeine Allergy (Verified 12/23/13 18:12) Itching doxycycline Allergy (Verified 12/23/13 18:12) Nausea/Vomiting lidocaine Allergy (Verified 12/23/13 18:12) Anaphylaxis Penicillins Allergy (Verified 12/23/13 18:12) Anaphylaxis Sulfa (Sulfonamide Antibiotics) Allergy (Verified 12/23/13 18:12) Nausea/Vomiting Iodinated Contrast Media [Iodinated Contrast Media - IV Dye] Adverse Reaction (Verified 12/23/13 18:12) Hives/Rash Home medications list reviewed: Yes Home Medications: Aspirin Chewable [Aspirin Chewable*] 1 tab PO DAILY 12/23/13 Gabapentin [Neurontin*] 2 tab PO TID 12/23/13 Ibuprofen [Motrin] 800 mg PO DAILY PRN 12/23/13 Lovastatin [Mevacor*] 20 mg PO BEDTIME 12/23/13 Magnesium Oxide [Mag 0X*] 400 mg PO DAILY 12/23/13 Meclizine HCl [Motion Sickness Relief] 1 tab PO TID PRN 12/23/13 Amiodarone HCl 1 tab PO DAILY 07/13/21 Amlodipine [Norvasc*] 1 tab PO Q48H 07/13/21 Benzonatate [Tessalon Perle*] 1 tab PO DAILY 07/13/21 Bumetanide 2 tab PO BID 07/13/21 Cholecalciferol (Vitamin D3) [Vitamin D3] 1 cap PO DAILY 07/13/21 Insulin Aspart [Novolog] 46 unit SQ BID 07/13/21 Insulin NPH Human Isophane [Novolin N] 46 unit SQ BID 07/13/21 Losartan Potassium 1 tab PO DAILY 07/13/21 Montelukast [Singulair*] 1 tab PO DAILY 07/13/21 Potassium Chloride [Micro-K] 1 cap PO DAILY 07/13/21 Rivaroxaban [Xarelto] 1 tab PO DAILY 07/13/21 Thyroid,Pork [Applications Administrator Thyroid] 2.5 tab PO DAILY 07/13/21 - Past Medical/Surgical History Diabetic: Yes -: Chronic diastolic CHF -: Diabetes mellitus type 2 insulin-dependent -: Hypertension -: Hyperlipidemia -: Atrial fibrillation on chronic anticoagulation the -: Chronic lymphedema -: Obesity -: Jaw reconstruction for TMJ -: Cholecystectomy -: Tonsillectomy Psychosocial/ Personal History: Patient lives at home by herself. She has home health - Social History Smoking Status: Never smoker Alcohol use: Yes CD- Drugs: No Caffeine use: No Place of Residence: Home Review of Systems 10-point ROS is otherwise unremarkable Physical Examination Temp Pulse Resp BP Pulse Ox 97 F 53 17 133/63 94 07/16/21 04:00 07/16/21 04:00 07/16/21 04:00 07/16/21 04:00 07/16/21 04:00 General: Alert, In no apparent distress, Oriented x3 Cardiovascular: Other, Edema (edema bilateral lower extremities, improved with compression and surgical intervention), Abnormal pulses (nonpalpable pedal pulses bilateral) Capillary refill: <2 Seconds Musculoskeletal: No clubbing, No swelling, No contractures, No erythema, No tenderness, No warmth Integumentary: Other (Thickened hypertrophic nails with subungual debris x 10. ) Neurological: Sensation intact - Problems (1) Generalized atherosclerosis Current Visit: Yes Status: Acute (2) Tinea unguium Current Visit: Yes Status: Acute Conclusions/Impression: bedside debridement of nails x 10
[2021-07-16] MEDS: NYSTATIN PWDR 100000 UNIT/GM TOP SCH ×2 (08:39→20:02)
[2021-07-16] MEDS: AMLODIPINE 5 MG TAB PO SCH (08:40)
[2021-07-16] MEDS: COLLAGENASE 30 GM OINTMENT TOP SCH (08:42)
[2021-07-16] MEDS: THYROID PORK 15 MG PO SCH (08:43)
[2021-07-16] MEDS: NPH (HUMAN) 100 UNITS/ML INSULIN SQ SCH ×2 (08:48→21:24)
[2021-07-16] MEDS: SPIRONOLACTONE 25 MG TABLET PO SCH (12:28)
--- NOTE | 2021-07-16 12:29 | P.PN ---
Subjective Date of Service: 07/16/21 Primary Care Provider: Dr. Goldberg; Cardiology-Dr. Baltazar Chief Complaint: Right lower extremity erythema Patient seen examined at bedside, doing well with no acute complaints. Physical Examination - Vital Signs Temperature: 98.0 F Blood Pressure: 144/67 Pulse: 53 Respirations: 16 Pulse Ox (%): 98 Assessment And Plan - Plan Physical Exam: General: Alert, In no apparent distress, Oriented x3, Obese HEENT: Atraumatic, Normocephalic Neck: Supple, 2+ carotid pulse no bruit Respiratory: Clear to auscultation bilaterally, Normal air movement Cardiovascular: No edema, Normal S1 S2 Gastrointestinal: Normal bowel sounds, Soft and benign, Non-distended Musculoskeletal: No clubbing, No swelling Integumentary: Pressure ulcer (Bilateral posterior mid thigh with minimal tissue breakdown, richard wound tissue black/purple discoloration), Other (Bilateral lower extremity lymphedema, right lower extremity erythema and venous ulcerations weeping serous fluid.) Conclusions/Impression: Antibiotics: kflex start; 07/16 stop: 07/26 Vancomycin Start: 07/13 Stop: 07/16 Cefepime Start: 07/13 Stop: 07/16 Assessment/plan Right lower extremity cellulitis Patient underwent excisional debridement on 07/13. Vancomycin and cefepime de escalated to oral cephalexin. Continue cephalexin for 10 days. Wound care per surgical team, currently utilizing santyl. Patient will need to follow up outpatient in wound Care Clinic. Bilateral lower extremity lymphedema Keep legs elevated and wrapped Bilateral posterior thigh stage II pressure wounds Apply Xeroform and cover with Mepilex. Diabetes mellitus type 2 uncontrolled insulin-dependent Hemoglobin A1c of 9.0%. Strict glucose monitoring in needed for proper wound healing and infection control. Continue sliding scale insulin. Medical management per primary team Continue to monitor CBC and BMP Continue to monitor for signs infection Plan of care discussed with Dr. Cowan Thank you for consultation Physician Review Additional Text: COVID: Negative Venous Doppler: COMPARISON: None TECHNIQUE: Real-time sonographic evaluation of the bilateral lower extremity deep venous systems was performed. FINDINGS: Normal compressibility, flow augmentation, phasic flow and spontaneous flow is identified in both the left and right lower extremity deep venous systems. No intraluminal filling defects seen. IMPRESSION: No DVT in either lower extremity. Renal US: COMPARISON: None FINDINGS: The right kidney measures 12 cm with a normal echotexture. 3 centimeter hypoechoic structure mid to upper pole right kidney The left kidney measures 9.5 cm with a normal echotexture. Hydronephrosis is not seen. Limited evaluation the bladder is the patient had recently voided IMPRESSION: 3 centimeter hypoechoic structure mid to upper pole right kidney probably lobulation. However, as a mass can have this appearance it is recommended that the patient have a nonemergent CT scan of the kidneys with and without IV contrast for further evaluation. If the creatinine stays persistently high an unenhanced MRI could be obtained instead Surgery: Date of Procedure: 07/13/2021 Surgeon: Omar Back MD Preoperative Diagnoses: Venous stasis, bilateral lower extremities with cellulitis, bilateral lower extremity, lymphedema, with morbid obesity. Postoperative Diagnoses: Venous stasis, bilateral lower extremities with cellulitis, bilateral lower extremity, lymphedema, with morbid obesity. Procedures: 1. Subcutaneous excisional debridement of right lower extremity infected venous stasis ulcers about 40 x 20 cm. 2. Subcutaneous excisional debridement of the left lower extremity, infected venous stasis ulcer about 12 x 12 cm. Findings: Large lymphedema, venous stasis disease, multiple blisters present, cellulitis present of the entire lower extremity. Patient also has ulcers on the thigh bilaterally, but does not need any debridement at this moment, although offloading will be very important. Anesthesia: General plus local. Complications: None. CT AB without contrast: COMPARISON: Renal Ultrasound-Complete dated 07/12/2021 TECHNIQUE: All CT scans are performed using dose optimization technique as appropriate and may include automated exposure control or mA/KV adjustment according to patient size. FINDINGS: Lower chest: Cardiomegaly. Liver: No acute abnormality or suspicious lesions. Biliary: Cholecystectomy. Stomach: No significant focal abnormality. Duodenum: No significant focal abnormality. Pancreas: No significant abnormality. Spleen: No significant abnormality. Adrenal: No suspicious lesions. Kidney/ureter: No hydronephrosis. No renal calculi. Retroperitoneum: No retroperitoneal adenopathy. Vascular: No aneurysm. Atherosclerosis Bowel: No significant focal abnormality. Normal appendix. Peritoneum: No ascites or free air. Small fat containing umbilical hernia . Bladder: Grossly unremarkable. Reproductive: No adnexal masses. Calcified uterine fibroid. Bones: No acute fracture. Multilevel degenerative changes are present in the spine. IMPRESSION: No acute intra-abdominal or pelvic finding. Though limited without IV contrast, no renal mass identified. Physical Exam: GENERAL: Patient doing well at this time. No complaints noted. VITAL SIGNS: Reviewed HEENT: Neck supple LUNGS: Clear to auscultation. No crackles or wheezes are heard. HEART: Regular rate and rhythm, no appreciable gallops, rubs, murmurs or extra heart sounds ABDOMEN: Soft, nontender, and nondistended. Positive bowel sounds. No hepatosplenomegaly was noted. EXTREMITIES: Bandages to the lower extremity noted. No significant erythema noted. Swelling to the lower extremities improved. NEUROLOGIC: The patient is oriented to person, place and time. Strength and sensation are grossly intact. Face is symmetric. SKIN: As above Impression: Bilateral lower extremity cellulitis with venous stasis and chronic lymphedema status post subcutaneous excisional debridement of right lower extremity infected venous stasis about 40 x 20 cm, subcutaneous excisional debridement of the left lower extremity infected venous stasis ulcer about 12 x 12 cm Atrial fibrillation on chronic anticoagulation therapy Acute on chronic renal disease stage III with 3 cm hyperechoic structure to the mid upper right kidney pole on renal ultrasound Diabetes mellitus type 2 insulin-dependent Hypertension Hyperlipidemia Chronic diastolic CHF Diabetic neuropathy Hypothyroidism Seasonal allergies Ulcers to the thigh bilateral Morbid obesity, BMI above 40 Plan: Bilateral lower extremity cellulitis with venous stasis and chronic lymphedema status post subcutaneous excisional debridement of right lower extremity infected venous stasis about 40 x 20 cm, subcutaneous excisional debridement of the left lower extremity infected venous stasis ulcer about 12 x 12 cm: Patient doing well. Patient status post debridement. Swelling and erythema improved. Cultures pending. Patient remains on IV vancomycin and cefepime. Patient desires home health and physical therapy at discharge. Social work consulted to help with this. We will have patient be taught on wound care. Podiatry to come tomorrow to evaluate feet and toenails. Spoke with podiatry concerning this. Diabetes better controlled. Overall stable. Anticipate likely discharge tomorrow with home health and physical therapy with continued or antibiotic therapy. Await recommendations by infectious disease. Patient can likely be followed up at the wound care center as an outpatient. Patient plans to establish care locally with Dr. Mattson. I will turn the service over to the hospitalist team tomorrow. I will go plan of care with him. Atrial fibrillation on chronic anticoagulation therapy: Overall stable. Continue Xarelto 20 mg daily. Continue with Bumex 2 mg 1 pill twice daily. Continue amiodarone 100 mg daily. Acute on chronic renal disease stage III with 3 cm hyperechoic structure to the mid upper right kidney pole on renal ultrasound: CT scan without contrast unremarkable. Patient still may require MRI as an outpatient to further evaluate. Due to her weight and anxiety patient preferred to have this done as an outpatient with open MRI. Diabetes mellitus type 2 insulin-dependent: Continue with insulin NPH at 25 units subcu twice daily. Will monitor and adjust appropriately. Hemoglobin A1c 9.0 Hypertension: Blood pressure stable. Continue losartan 25 mg daily, Norvasc 5 mg daily. Hyperlipidemia: Continue Lipitor 10 mg daily Chronic diastolic CHF: Continue Bumex 2 mg 1 pill twice daily Hypothyroidism: Continue with [place] Thyroid 45 mg daily Diabetic neuropathy: Continue Neurontin 200 mg 3 times a day. Ulcers to the thigh bilateral: Continue with wound care Seasonal allergies: Continue with singular 10 mg daily Morbid obesity, BMI above 40: Continue to address lifestyle modification education Code Status: DO NOT RESUSCITATE DVT prophylaxis: Leilareleunice Advanced Care Planning-30 minutes: Home at discharge with home health and physical therapy.
--- NOTE | 2021-07-16 14:50 | PN ---
Date of Progress Note: 07/16/2021 Subjective: The patient is doing better. No shortness of breath. No chest pain. No fever. Review of Systems: Ten points otherwise unremarkable. Objective: Extremities: Intact surgical site. No cyanosis. Decreased swelling. Plan: If she is going to go home tomorrow, then I am going to try to see they can bring the Wound [facility] team since she is going to be seen in the next few months in our center to let start emily ing our plans and see what she required to have a safe discharge. She understands the importance of losing weight, lymphedema control, fluid control, followup with the primary doctor. ALEXANDRE/TANESHA Voice ID: [id number] Report ID: [id number]
[2021-07-16] MEDS: RIVAROXABAN 20 MG TABLET PO SCH (16:33)
[2021-07-16] MEDS: CEPHALEXIN 250 MG CAP PO SCH ×2 (16:34→20:01)
[2021-07-16] MEDS ORDERED: VANCOMYCIN 1.75 GM in NA CHLORIDE 0.9% 500 ML IVPB SCH (17:00)
--- NOTE | 2021-07-16 17:54 | P.PN ---
Date of Service: 07/16/21 Vital Signs Temp Pulse Resp BP Pulse Ox 97.7 F 60 16 119/56 L 99 07/16/21 16:00 07/16/21 16:00 07/16/21 16:00 07/16/21 16:00 07/16/21 16:00 Medications Acetaminophen (Acetaminophen 500 Mg Tab) 500 mg PO Q4HP PRN PRN Reason: TEMP > 101' F Amiodarone HCl (Amiodarone Hcl 200 Mg Tab) 100 mg PO DAILY [facility] Last Admin: 07/16/21 08:37 Dose: 100 mg Documented by: Amlodipine Besylate (Amlodipine 5 Mg Tab) 5 mg PO DAILY [facility] Last Admin: 07/16/21 08:40 Dose: Not Given Documented by: Aspirin (Aspirin 81 Mg Chewable Tablet) 81 mg PO DAILY [facility] Last Admin: 07/16/21 08:35 Dose: 81 mg Documented by: Atorvastatin Calcium (Atorvastatin 10 Mg Tab) 10 mg PO BEDTIME [facility] Last Admin: 07/15/21 22:32 Dose: 10 mg Documented by: Bumetanide (Bumetanide 1 Mg Tablet) 2 mg PO BID [facility] Last Admin: 07/16/21 08:36 Dose: 2 mg Documented by: Cephalexin HCl (Cephalexin 250 Mg Cap) 500 mg PO QID [facility]; Protocol Last Admin: 07/16/21 16:34 Dose: 500 mg Documented by: Cholecalciferol (Vitamin D 1000 Unit Tab) 1,000 unit PO DAILY [facility] Last Admin: 07/16/21 08:38 Dose: 1,000 unit Documented by: Collagenase (Collagenase 30 Gm Ointment) 1 appl TOP DAILY [facility] Last Admin: 07/16/21 08:42 Dose: Not Given Documented by: Dextrose (D50w 25 Gm/50 Ml Syringe) 12.5 gm IV PRN PRN; Protocol PRN Reason: HYPOGLYCEMIA Fentanyl Citrate (Fentanyl Citr 100 Mcg/2 Ml) 25 mcg IV Q3H PRN PRN Reason: Pain scale 8-10 (Severe) Gabapentin (Gabapentin 100 Mg Cap) 200 mg PO TID [facility] Last Admin: 07/16/21 13:21 Dose: 200 mg Documented by: Glucagon (Glucagon 1 Mg/Vial) 1 mg IM 1X PRN; Protocol PRN Reason: HYPOGLYCEMIA Home Med (Thyroid,Pork [[employer] Thyroid]) 2.5 tab PO DAILY [facility] Last Admin: 07/16/21 08:43 Dose: Not Given Documented by: Insulin Human NPH (Nph (Human) 100 Units/Ml Insulin) 25 units SQ BID [facility] Last Admin: 07/16/21 08:48 Dose: 25 units Documented by: Insulin Human Regular (Insulin -Regular Human 50 Unit/0.5 Ml Ml) 0 unit SQ ACHS [facility]; Protocol Last Admin: 07/16/21 16:32 Dose: 5 unit Documented by: Lorazepam (Lorazepam 0.5 Mg Tablet) 0.5 mg PO BID PRN PRN Reason: ANXIETY Losartan Potassium (Losartan Potassium 50 Mg Tablet) 25 mg PO DAILY [facility] Last Admin: 07/16/21 08:38 Dose: 25 mg Documented by: Magnesium Oxide (Magnesium Oxide 400 Mg Tab) 400 mg PO DAILY [facility] Last Admin: 07/16/21 08:37 Dose: 400 mg Documented by: Meclizine HCl (Meclizine Hcl 12.5 Mg Tab) 25 mg PO TID PRN PRN Reason: DIZZINESS Montelukast Sodium (Montelukast 10 Mg Tab) 10 mg PO DAILY [facility] Last Admin: 07/16/21 08:35 Dose: 10 mg Documented by: Nystatin (Nystatin Pwdr [id number] Unit/Gm) 1 appl TOP BID [facility] Last Admin: 07/16/21 08:39 Dose: 1 appl Documented by: Ondansetron HCl (Ondansetron 4 Mg/2 Ml Vial) 4 mg IV Q6HP PRN PRN Reason: NAUSEA / VOMITING Rivaroxaban (Rivaroxaban 20 Mg Tablet) 20 mg PO DAILY AT SUPPER [facility] Last Admin: 07/16/21 16:33 Dose: 20 mg Documented by: Sodium Chloride (Flush Normal Saline 10 Ml) 10 ml IV BID [facility] Last Admin: 07/16/21 08:40 Dose: 10 ml Documented by: Spironolactone (Spironolactone 25 Mg Tablet) 25 mg PO DAILY [facility] Last Admin: 07/16/21 12:28 Dose: 25 mg Documented by: Tramadol/Acetaminophen (Tramadol 37.5mg/Apap 325mg Per Tab) 1 tab PO Q4H PRN PRN Reason: Pain scale 5-7 (Moderate) Microbiology Results 07/12/21 11:15 Blood - Blood Aerobic Blood Culture - Preliminary No growth in 24 hours. 07/12/21 11:15 Blood - Blood Anaerobic Blood Culture - Preliminary No growth in 24 hours. 07/12/21 09:30 Blood - Blood Aerobic Blood Culture - Preliminary No growth in 24 hours. 07/12/21 09:30 Blood - Blood Anaerobic Blood Culture - Preliminary No growth in 24 hours. Assessment/ Plan: Nephrology Progress Note Feeling better. No chest pain or dyspnea No acute events overnight Vitals, medications blood work and imaging reviewed in the chart General: In no apparent distress, Oriented x3, Cooperative HEENT: Atraumatic Neck: Supple Respiratory: Clear to auscultation bilaterally Cardiovascular: Regular rate/rhythm, Edema Gastrointestinal: Soft and benign, Non-distended Musculoskeletal: No clubbing, Erythema, Tenderness, Warmth Integumentary: No cyanosis, Skin breakdown, Skin lesion Neurological: Normal speech Laboratory Data (last 24 hrs) 07/12/21 09:30: PT 25.8 H, INR 2.23, APTT 35.6 07/12/21 09:30: Sodium 136, Potassium 4.1, BUN 79 H, Creatinine 1.57 H, Glucose 290 H 07/12/21 09:30: WBC 8.30, Hgb 13.0, Hct 38.6, Plt Count 198 Imagings Data: EXAM DESCRIPTION: US - Extrem Venous W Compress Ken - 07/12/2021 11:02 am CLINICAL HISTORY: Swelling COMPARISON: None TECHNIQUE: Real-time sonographic evaluation of the bilateral lower extremity deep venous systems was performed. FINDINGS: Normal compressibility, flow augmentation, phasic flow and spontaneous flow is identified in both the left and right lower extremity deep venous systems. No intraluminal filling defects seen. IMPRESSION: No DVT in either lower extremity. EXAM DESCRIPTION: US - Renal Ultrasound-Complete - 07/12/2021 3:53 pm CLINICAL HISTORY: Acute on chronic renal disease COMPARISON: None FINDINGS: The right kidney measures 12 cm with a normal echotexture. 3 centimeter hypoechoic structure mid to upper pole right kidney The left kidney measures 9.5 cm with a normal echotexture. Hydronephrosis is not seen. Limited evaluation the bladder is the patient had recently voided IMPRESSION: 3 centimeter hypoechoic structure mid to upper pole right kidney probably lobulation. However, as a mass can have this appearance it is recommended that the patient have a nonemergent CT scan of the kidneys with and without IV contrast for further evaluation. If the creatinine stays persistently high an unenhanced MRI could be obtained instead Conclusions/Impression: EZEQUIEL may be CRS CKD III -No NSAIDs Right kidney 3cm lesion -Repeat CT negative for mass HTN with CKD/ CHF -Continue Amlodipine and Losartan Diastolic CHF, A/C Chronic Lymphedema -Continue Losartan -Continue Bumex -Start daily spironolactone DM II with hyperglycemia -RISS RLE Cellulitis/ Ulcer -Continue Cefepime and Vancomycin -Monitor Vanc level -Follow up with surgery Case reviewed with Dr. Silva
[2021-07-16] MEDS: TRAMADOL 37.5mg/APAP 325mg PER TAB PO PRN (18:47)
[2021-07-16] MEDS: ATORVASTATIN 10 MG TAB PO SCH (20:01)
[2021-07-16] MEDS: DOCUSATE NA 100 MG CAP PO PRN (21:21)
[2021-07-17] MEDS: INSULIN -REGULAR HUMAN 50 UNIT/0.5 ML ML SQ SCH ×4 (07:30→21:30)
[2021-07-17] MEDS: THYROID PORK 15 MG PO SCH (09:00)
[2021-07-17] MEDS: BUMETANIDE 1 MG TABLET PO SCH ×2 (09:00→21:19)
[2021-07-17] MEDS: MAGNESIUM OXIDE 400 MG TAB PO SCH (09:00)
[2021-07-17] MEDS: MONTELUKAST 10 MG TAB PO SCH (09:14)
[2021-07-17] MEDS: GABAPENTIN 100 MG CAP PO SCH ×3 (09:14→21:25)
[2021-07-17] MEDS: AMIODARONE HCL 200 MG TAB PO SCH (09:15)
[2021-07-17] MEDS: SPIRONOLACTONE 25 MG TABLET PO SCH ×2 (09:15→21:49)
[2021-07-17] MEDS: ASPIRIN 81 MG CHEWABLE TABLET PO SCH (09:15)
[2021-07-17] MEDS: VITAMIN D 1000 UNIT TAB PO SCH (09:15)
[2021-07-17] MEDS: CEPHALEXIN 250 MG CAP PO SCH ×4 (09:16→21:06)
[2021-07-17] MEDS: LOSARTAN POTASSIUM 50 MG TABLET PO SCH (09:16)
[2021-07-17] MEDS: AMLODIPINE 5 MG TAB PO SCH (09:16)
[2021-07-17] MEDS: NYSTATIN PWDR 100000 UNIT/GM TOP SCH ×2 (09:17→21:00)
[2021-07-17] MEDS: NPH (HUMAN) 100 UNITS/ML INSULIN SQ SCH ×2 (09:18→21:30)
[2021-07-17] MEDS: COLLAGENASE 30 GM OINTMENT TOP SCH (09:19)
--- NOTE | 2021-07-17 11:47 | P.PN ---
Subjective Date of Service: 07/17/21 Primary Care Provider: Dr. Goldberg; Cardiology-Dr. Baltazar Chief Complaint: Right lower extremity erythema Patient seen examined at bedside, doing well with no acute complaints. Tolerating a whole oral antibiotics well no nausea vomiting/diarrhea. WBC within normal limits. Continue current wound care. Review of Systems 10-point ROS is otherwise unremarkable Physical Examination - Vital Signs Temperature: 97.5 F Blood Pressure: 144/60 Pulse: 52 Respirations: 20 Pulse Ox (%): 95 - Studies Laboratory Last Values WBC 8.30 K/uL (4.3-10.9) 07/12/21 09:30 RBC 4.41 M/uL (3.86-4.86) 07/12/21 09:30 Hgb 13.0 g/dL (12.0-15.0) 07/12/21 09:30 Hct 38.6 % (36.0-45.0) 07/12/21 09:30 MCV 87.7 fL (80-100) 07/12/21 09:30 MCH 29.4 pg (27.0-35.0) 07/12/21 09:30 MCHC 33.6 g/dL (32.0-36.0) 07/12/21 09:30 RDW 13.4 % (12.1-15.2) 07/12/21 09:30 Plt Count 198 K/uL (152-406) 07/12/21 09:30 MPV 11.5 fL (7.6-11.3) H 07/12/21 09:30 Neutrophils % 82.2 % (41.7-73.7) H 07/12/21 09:30 Lymphocytes % 10.9 % (15.3-44.8) L 07/12/21 09:30 Monocytes % 5.2 % (3.3-12.3) 07/12/21 09:30 Eosinophils % 1.4 % (0-4.4) 07/12/21 09:30 Basophils % 0.3 % (0-1.3) 07/12/21 09:30 Absolute Neutrophils 6.8 K/uL (1.8-8.0) 07/12/21 09:30 Absolute Lymphocytes 0.9 K/uL (0.7-4.9) 07/12/21 09:30 Absolute Monocytes 0.4 K/uL (0.1-1.3) 07/12/21 09:30 Absolute Eosinophils 0.1 K/uL (0-0.5) 07/12/21 09:30 Absolute Basophils 0.0 K/uL (0-0.5) 07/12/21 09:30 PT 25.8 SECONDS (9.5-12.5) H 07/12/21 09:30 INR 2.23 07/12/21 09:30 APTT 35.6 SECONDS (24.3-36.9) 07/12/21 09:30 Sodium 136 mmol/L (136-145) 07/12/21 09:30 Potassium 4.1 mmol/L (3.5-5.1) 07/12/21 09:30 Chloride 98 mmol/L (98-107) 07/12/21 09:30 Carbon Dioxide 29 mmol/L (21-32) 07/12/21 09:30 BUN 79 mg/dL (7-18) H 07/12/21 09:30 Creatinine 1.57 mg/dL (0.55-1.3) H 07/12/21 09:30 Estimated GFR 33 mL/min (=/>90) L 07/12/21 09:30 Glucose 290 mg/dL (74-106) H 07/12/21 09:30 Calcium 9.7 mg/dL (8.5-10.1) 07/12/21 09:30 Procalcitonin < 0.05 ng/mL (<0.050) 07/12/21 09:30 SARS-CoV-2 Rap RNA(RT-PCR) Negative (NEGATIVE) 07/12/21 09:30 Microbiology Data (last 24 hrs): 07/12/21 11:15 Blood - Blood Aerobic Blood Culture - Final No growth in 5 days. 07/12/21 11:15 Blood - Blood Anaerobic Blood Culture - Final No growth in 5 days. 07/12/21 09:30 Blood - Blood Aerobic Blood Culture - Final No growth in 5 days. 07/12/21 09:30 Blood - Blood Anaerobic Blood Culture - Final No growth in 5 days. Assessment And Plan - Plan Physical Exam: General: Alert, In no apparent distress, Oriented x3, Obese HEENT: Atraumatic, Normocephalic Neck: Supple, 2+ carotid pulse no bruit Respiratory: Clear to auscultation bilaterally, Normal air movement Cardiovascular: No edema, Normal S1 S2 Gastrointestinal: Normal bowel sounds, Soft and benign, Non-distended Musculoskeletal: No clubbing, No swelling Integumentary: Pressure ulcer (Bilateral posterior mid thigh with minimal tissue breakdown, richard wound tissue black/purple discoloration), Other (Bilateral lower extremity lymphedema, right lower extremity erythema and venous ulcerations weeping serous fluid.) Conclusions/Impression: Antibiotics: kflex start; 07/16 stop: 07/26 Vancomycin Start: 07/13 Stop: 07/16 Cefepime Start: 07/13 Stop: 07/16 Assessment/plan Right lower extremity cellulitis Patient underwent excisional debridement on 07/13. Vancomycin and cefepime de escalated to oral cephalexin. Continue cephalexin for 10 days. Wound care per surgical team, currently utilizing santyl. Patient will need to follow up outpatient in wound Care Clinic. Bilateral lower extremity lymphedema Keep legs elevated and wrapped Bilateral posterior thigh stage II pressure wounds Apply Xeroform and cover with Mepilex. Diabetes mellitus type 2 uncontrolled insulin-dependent Hemoglobin A1c of 9.0%. Strict glucose monitoring in needed for proper wound healing and infection control. Continue sliding scale insulin. Medical management per primary team Continue to monitor CBC and BMP Continue to monitor for signs infection Plan of care discussed with Dr. Cowan Thank you for consultation
[2021-07-17] MEDS: RIVAROXABAN 20 MG TABLET PO SCH (17:20)
[2021-07-17] MEDS: TRAMADOL 37.5mg/APAP 325mg PER TAB PO PRN ×2 (17:22→21:40)
--- NOTE | 2021-07-17 20:52 | P.PN ---
Date of Service: 07/17/21 Vital Signs Temp Pulse Resp BP Pulse Ox 97.4 F 53 16 112/54 L 94 07/17/21 20:00 07/17/21 20:00 07/17/21 20:00 07/17/21 20:00 07/17/21 20:00 Medications Acetaminophen (Acetaminophen 500 Mg Tab) 500 mg PO Q4HP PRN PRN Reason: TEMP > 101' F Amiodarone HCl (Amiodarone Hcl 200 Mg Tab) 100 mg PO DAILY [facility] Last Admin: 07/17/21 09:15 Dose: 100 mg Documented by: Amlodipine Besylate (Amlodipine 5 Mg Tab) 5 mg PO DAILY [facility] Last Admin: 07/17/21 09:16 Dose: 5 mg Documented by: Aspirin (Aspirin 81 Mg Chewable Tablet) 81 mg PO DAILY [facility] Last Admin: 07/17/21 09:15 Dose: 81 mg Documented by: Atorvastatin Calcium (Atorvastatin 10 Mg Tab) 10 mg PO BEDTIME [facility] Last Admin: 07/16/21 20:01 Dose: 10 mg Documented by: Bumetanide (Bumetanide 1 Mg Tablet) 4 mg PO BID [facility] Cephalexin HCl (Cephalexin 250 Mg Cap) 500 mg PO QID [facility]; Protocol Last Admin: 07/17/21 17:20 Dose: 500 mg Documented by: Cholecalciferol (Vitamin D 1000 Unit Tab) 1,000 unit PO DAILY [facility] Last Admin: 07/17/21 09:15 Dose: 1,000 unit Documented by: Collagenase (Collagenase 30 Gm Ointment) 1 appl TOP DAILY [facility] Last Admin: 07/17/21 09:19 Dose: 1 appl Documented by: Dextrose (D50w 25 Gm/50 Ml Syringe) 12.5 gm IV PRN PRN; Protocol PRN Reason: HYPOGLYCEMIA Docusate Sodium (Docusate Na 100 Mg Cap) 100 mg PO DAILY PRN PRN Reason: CONSTIPATION Last Admin: 07/16/21 21:21 Dose: 100 mg Documented by: Fentanyl Citrate (Fentanyl Citr 100 Mcg/2 Ml) 25 mcg IV Q3H PRN PRN Reason: Pain scale 8-10 (Severe) Gabapentin (Gabapentin 100 Mg Cap) 200 mg PO TID [facility] Last Admin: 07/17/21 15:10 Dose: 200 mg Documented by: Glucagon (Glucagon 1 Mg/Vial) 1 mg IM 1X PRN; Protocol PRN Reason: HYPOGLYCEMIA Home Med (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,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]) 2.5 tab PO DAILY [facility] Last Admin: 07/17/21 09:00 Dose: Not Given Documented by: Insulin Human NPH (Nph (Human) 100 Units/Ml Insulin) 25 units SQ BID [facility] Last Admin: 07/17/21 09:18 Dose: 25 units Documented by: Insulin Human Regular (Insulin -Regular Human 50 Unit/0.5 Ml Ml) 0 unit SQ [facility]; Protocol Last Admin: 07/17/21 17:20 Dose: 3 unit Documented by: Lorazepam (Lorazepam 0.5 Mg Tablet) 0.5 mg PO BID PRN PRN Reason: ANXIETY Losartan Potassium (Losartan Potassium 50 Mg Tablet) 25 mg PO DAILY [facility] Last Admin: 07/17/21 09:16 Dose: 25 mg Documented by: Magnesium Oxide (Magnesium Oxide 400 Mg Tab) 400 mg PO DAILY [facility] Last Admin: 07/17/21 09:00 Dose: 400 mg Documented by: Meclizine HCl (Meclizine Hcl 12.5 Mg Tab) 25 mg PO TID PRN PRN Reason: DIZZINESS Last Admin: 07/16/21 20:08 Dose: 25 mg Documented by: Montelukast Sodium (Montelukast 10 Mg Tab) 10 mg PO DAILY [facility] Last Admin: 07/17/21 09:14 Dose: 10 mg Documented by: Nystatin (Nystatin Pwdr [id number] Unit/Gm) 1 appl TOP BID [facility] Last Admin: 07/17/21 09:17 Dose: 1 appl Documented by: Ondansetron HCl (Ondansetron 4 Mg/2 Ml Vial) 4 mg IV Q6HP PRN PRN Reason: NAUSEA / VOMITING Rivaroxaban (Rivaroxaban 20 Mg Tablet) 20 mg PO DAILY AT SUPPER [facility] Last Admin: 07/17/21 17:20 Dose: 20 mg Documented by: Sodium Chloride (Flush Normal Saline 10 Ml) 10 ml IV BID [facility] Last Admin: 07/17/21 09:19 Dose: 10 ml Documented by: Spironolactone (Spironolactone 25 Mg Tablet) 25 mg PO BID [facility] Tramadol/Acetaminophen (Tramadol 37.5mg/Apap 325mg Per Tab) 1 tab PO Q4H PRN PRN Reason: Pain scale 5-7 (Moderate) Last Admin: 07/17/21 17:22 Dose: 1 tab Documented by: Microbiology Results 07/12/21 11:15 Blood - Blood Aerobic Blood Culture - Final No growth in 5 days. 07/12/21 11:15 Blood - Blood Anaerobic Blood Culture - Final No growth in 5 days. 07/12/21 09:30 Blood - Blood Aerobic Blood Culture - Final No growth in 5 days. 07/12/21 09:30 Blood - Blood Anaerobic Blood Culture - Final No growth in 5 days. Assessment/ Plan: Nephrology Progress Note Feeling better. No chest pain or dyspnea No acute events overnight Vitals, medications blood work and imaging reviewed in the chart General: In no apparent distress, Oriented x3, Cooperative HEENT: Atraumatic Neck: Supple Respiratory: Clear to auscultation bilaterally Cardiovascular: Regular rate/rhythm, Edema Gastrointestinal: Soft and benign, Non-distended Musculoskeletal: No clubbing, Erythema, Tenderness, Warmth Integumentary: No cyanosis, Skin breakdown, Skin lesion Neurological: Normal speech Laboratory Data (last 24 hrs) 07/12/21 09:30: PT 25.8 H, INR 2.23, APTT 35.6 07/12/21 09:30: Sodium 136, Potassium 4.1, BUN 79 H, Creatinine 1.57 H, Glucose 290 H 07/12/21 09:30: WBC 8.30, Hgb 13.0, Hct 38.6, Plt Count 198 Imagings Data: EXAM DESCRIPTION: US - Extrem Venous W Compress Ken - 07/12/2021 11:02 am CLINICAL HISTORY: Swelling COMPARISON: None TECHNIQUE: Real-time sonographic evaluation of the bilateral lower extremity deep venous systems was performed. FINDINGS: Normal compressibility, flow augmentation, phasic flow and spontaneous flow is identified in both the left and right lower extremity deep venous systems. No intraluminal filling defects seen. IMPRESSION: No DVT in either lower extremity. EXAM DESCRIPTION: US - Renal Ultrasound-Complete - 07/12/2021 3:53 pm CLINICAL HISTORY: Acute on chronic renal disease COMPARISON: None FINDINGS: The right kidney measures 12 cm with a normal echotexture. 3 centimeter hypoechoic structure mid to upper pole right kidney The left kidney measures 9.5 cm with a normal echotexture. Hydronephrosis is not seen. Limited evaluation the bladder is the patient had recently voided IMPRESSION: 3 centimeter hypoechoic structure mid to upper pole right kidney probably lobulation. However, as a mass can have this appearance it is recommended that the patient have a nonemergent CT scan of the kidneys with and without IV contrast for further evaluation. If the creatinine stays persistently high an unenhanced MRI could be obtained instead Conclusions/Impression: EZEQUIEL may be CRS CKD III -No NSAIDs Right kidney 3cm lesion -Repeat CT negative for mass HTN with CKD/ CHF -Continue Amlodipine and Losartan Diastolic CHF, A/C Chronic Lymphedema -Continue Losartan -Increase Bumex 4mg BID -Increase spironolactone BID DM II with hyperglycemia -RISS RLE Cellulitis/ Ulcer -Continue Cefepime and Vancomycin -Monitor Vanc level -Follow up with surgery
[2021-07-17] MEDS: ATORVASTATIN 10 MG TAB PO SCH (21:00)
[2021-07-18 06:32] LABS: Albumin 2.5 g/dL (3.4-5.0); Bilirubin Total 0.2 mg/dL (0.2-1.0); Potassium 4.2 mmol/L (3.5-5.1); Protein, Total 6.5 g/dL (6.4-8.2)
[2021-07-18] MEDS: INSULIN -REGULAR HUMAN 50 UNIT/0.5 ML ML SQ SCH ×4 (07:30→20:42)
[2021-07-18] MEDS: THYROID PORK 15 MG PO SCH (09:00)
[2021-07-18] MEDS: NYSTATIN PWDR 100000 UNIT/GM TOP SCH ×2 (09:00→20:43)
[2021-07-18] MEDS: BUMETANIDE 1 MG TABLET PO SCH ×2 (09:00→20:39)
[2021-07-18] MEDS: COLLAGENASE 30 GM OINTMENT TOP SCH (09:00)
[2021-07-18] MEDS: CEPHALEXIN 250 MG CAP PO SCH ×4 (10:00→20:41)
[2021-07-18] MEDS: MONTELUKAST 10 MG TAB PO SCH (10:00)
[2021-07-18] MEDS: ASPIRIN 81 MG CHEWABLE TABLET PO SCH (10:00)
[2021-07-18] MEDS: VITAMIN D 1000 UNIT TAB PO SCH (10:00)
[2021-07-18] MEDS: LOSARTAN POTASSIUM 50 MG TABLET PO SCH (10:01)
[2021-07-18] MEDS: SPIRONOLACTONE 25 MG TABLET PO SCH ×2 (10:02→20:40)
[2021-07-18] MEDS: GABAPENTIN 100 MG CAP PO SCH ×3 (10:03→20:39)
[2021-07-18] MEDS: AMIODARONE HCL 200 MG TAB PO SCH (10:03)
[2021-07-18] MEDS: AMLODIPINE 5 MG TAB PO SCH (10:04)
[2021-07-18] MEDS: MAGNESIUM OXIDE 400 MG TAB PO SCH (10:05)
[2021-07-18] MEDS: NPH (HUMAN) 100 UNITS/ML INSULIN SQ SCH ×2 (10:06→20:41)
--- NOTE | 2021-07-18 13:02 | P.PN ---
Subjective Date of Service: 07/18/21 Primary Care Provider: Dr. Goldberg; Cardiology-Dr. Baltazar Chief Complaint: Right lower extremity erythema Patient seen examined at bedside, doing well with no acute complaints. Review of Systems 10-point ROS is otherwise unremarkable Physical Examination - Vital Signs Temperature: 97.6 F Blood Pressure: 123/63 Pulse: 54 Respirations: 18 Pulse Ox (%): 98 - Studies Laboratory Last Values WBC 8.30 K/uL (4.3-10.9) 07/12/21 09:30 RBC 4.41 M/uL (3.86-4.86) 07/12/21 09:30 Hgb 13.0 g/dL (12.0-15.0) 07/12/21 09:30 Hct 38.6 % (36.0-45.0) 07/12/21 09:30 MCV 87.7 fL (80-100) 07/12/21 09:30 MCH 29.4 pg (27.0-35.0) 07/12/21 09:30 MCHC 33.6 g/dL (32.0-36.0) 07/12/21 09:30 RDW 13.4 % (12.1-15.2) 07/12/21 09:30 Plt Count 198 K/uL (152-406) 07/12/21 09:30 MPV 11.5 fL (7.6-11.3) H 07/12/21 09:30 Neutrophils % 82.2 % (41.7-73.7) H 07/12/21 09:30 Lymphocytes % 10.9 % (15.3-44.8) L 07/12/21 09:30 Monocytes % 5.2 % (3.3-12.3) 07/12/21 09:30 Eosinophils % 1.4 % (0-4.4) 07/12/21 09:30 Basophils % 0.3 % (0-1.3) 07/12/21 09:30 Absolute Neutrophils 6.8 K/uL (1.8-8.0) 07/12/21 09:30 Absolute Lymphocytes 0.9 K/uL (0.7-4.9) 07/12/21 09:30 Absolute Monocytes 0.4 K/uL (0.1-1.3) 07/12/21 09:30 Absolute Eosinophils 0.1 K/uL (0-0.5) 07/12/21 09:30 Absolute Basophils 0.0 K/uL (0-0.5) 07/12/21 09:30 PT 25.8 SECONDS (9.5-12.5) H 07/12/21 09:30 INR 2.23 07/12/21 09:30 APTT 35.6 SECONDS (24.3-36.9) 07/12/21 09:30 Sodium 136 mmol/L (136-145) 07/12/21 09:30 Potassium 4.1 mmol/L (3.5-5.1) 07/12/21 09:30 Chloride 98 mmol/L (98-107) 07/12/21 09:30 Carbon Dioxide 29 mmol/L (21-32) 07/12/21 09:30 BUN 79 mg/dL (7-18) H 07/12/21 09:30 Creatinine 1.57 mg/dL (0.55-1.3) H 07/12/21 09:30 Estimated GFR 33 mL/min (=/>90) L 07/12/21 09:30 Glucose 290 mg/dL (74-106) H 07/12/21 09:30 Calcium 9.7 mg/dL (8.5-10.1) 07/12/21 09:30 Procalcitonin < 0.05 ng/mL (<0.050) 07/12/21 09:30 SARS-CoV-2 Rap RNA(RT-PCR) Negative (NEGATIVE) 07/12/21 09:30 Microbiology Data (last 24 hrs): 07/12/21 11:15 Blood - Blood Aerobic Blood Culture - Final No growth in 5 days. 07/12/21 11:15 Blood - Blood Anaerobic Blood Culture - Final No growth in 5 days. 07/12/21 09:30 Blood - Blood Aerobic Blood Culture - Final No growth in 5 days. 07/12/21 09:30 Blood - Blood Anaerobic Blood Culture - Final No growth in 5 days. Assessment And Plan - Plan Physical Exam: General: Alert, In no apparent distress, Oriented x3, Obese HEENT: Atraumatic, Normocephalic Neck: Supple, 2+ carotid pulse no bruit Respiratory: Clear to auscultation bilaterally, Normal air movement Cardiovascular: No edema, Normal S1 S2 Gastrointestinal: Normal bowel sounds, Soft and benign, Non-distended Musculoskeletal: No clubbing, No swelling Integumentary: Pressure ulcer (Bilateral posterior mid thigh with minimal tissue breakdown, richard wound tissue black/purple discoloration), Other (Bilateral lower extremity lymphedema, right lower extremity erythema and venous ulcerations weeping serous fluid.) Conclusions/Impression: Antibiotics: kflex start; 07/16 stop: 07/26 Vancomycin Start: 07/13 Stop: 07/16 Cefepime Start: 07/13 Stop: 07/16 Assessment/plan Right lower extremity cellulitis Patient underwent excisional debridement on 07/13. Vancomycin and cefepime de escalated to oral cephalexin. Continue cephalexin for 10 days. Wound care per surgical team, currently utilizing santyl. Patient will need to follow up outpatient in wound Care Clinic. Bilateral lower extremity lymphedema Keep legs elevated and wrapped Bilateral posterior thigh stage II pressure wounds Apply Xeroform and cover with Mepilex. Patient will go home with home health, however dressing needs to be changed every 24 hr and home health can on the comp 3 times a week. As such patient will need wound care supplies to take care of her wounds at home. Diabetes mellitus type 2 uncontrolled insulin-dependent Hemoglobin A1c of 9.0%. Strict glucose monitoring in needed for proper wound healing and infection control. Continue sliding scale insulin. Medical management per primary team Continue to monitor CBC and BMP Continue to monitor for signs infection Plan of care discussed with Dr. Cowan Thank you for consultation
[2021-07-18] MEDS: DOCUSATE NA 100 MG CAP PO PRN (15:18)
[2021-07-18] MEDS: RIVAROXABAN 20 MG TABLET PO SCH (17:09)
--- NOTE | 2021-07-18 18:33 | P.PN ---
Subjective Date of Service: 07/16/21 Patient doing well; supposed to see general surgery and wound healing in the AM- possible DC after evaluation. Review of Systems 10-point ROS is otherwise unremarkable Physical Examination - Vital Signs Temperature: 97.2 F Blood Pressure: 143/63 Pulse: 55 Respirations: 18 Pulse Ox (%): 99 - Physical Exam General: Alert, In no apparent distress, Oriented x3, Obese Respiratory: Clear to auscultation bilaterally, Normal air movement Cardiovascular: Regular rate/rhythm, Normal S1 S2 Gastrointestinal: Normal bowel sounds, Soft and benign, Non-distended, No tenderness Musculoskeletal: No clubbing, No swelling, No erythema, No tenderness Integumentary: Tenderness/swelling, Erythema, Warmth Neurological: Normal speech, Normal tone, Normal affect - Studies Medications List Reviewed: Yes Assessment & Plan - Problems (Diagnosis) (1) Cellulitis Current Visit: Yes Status: Acute Qualifiers: Site of cellulitis of extremity: lower extremity (2) Generalized atherosclerosis Current Visit: Yes Status: Acute (3) Chronic venous hypertension peripheral Current Visit: No Status: Acute (4) Edema of lower extremity Current Visit: No Status: Acute (5) Lymphedema Current Visit: No Status: Acute (6) Chronic CHF Current Visit: Yes Status: Acute Qualifiers: Heart failure type: diastolic Qualified Code(s): I50.32 - Chronic diastolic (congestive) heart failure (7) Atrial fibrillation Current Visit: Yes Status: Acute - Plan 1. Continue with IV antibiotic 2. Continue with local wound care 3. Wound care consultation/surgical consultation 4. Gentle IV hydration 5. Monitor CBC 6. Strict blood sugar monitoring 7. Pain control 8. GI and DVT prophylaxis Discharge Plan: Home Plan to discharge in: Greater than 2 days - Advance Directives Does patient have a Living Will: Yes Does patient have a Durable POA for Healthcare: No - Code Status/Comfort Care Code Status Assessed: Yes Code Status: Full Code Critical Care: No Time Spent Managing PTS Care (In Minutes): 35
--- NOTE | 2021-07-18 18:35 | P.PN ---
Date of Service: 07/17/21 Subjective Patient doesn't want to go home until medical supplies and home health arranged- cleared by surgery for DC; will make sure home arrangements completed and DC in the AM Review of Systems 10-point ROS is otherwise unremarkable Physical Examination - Vital Signs REVIEWED - Physical Exam General: Alert, In no apparent distress, Oriented x3, Obese Respiratory: Clear to auscultation bilaterally, Normal air movement Cardiovascular: Regular rate/rhythm, Normal S1 S2 Gastrointestinal: Normal bowel sounds, Soft and benign, Non-distended, No tenderness Musculoskeletal: No clubbing, No swelling, No erythema, No tenderness Integumentary: Tenderness/swelling, Erythema, Warmth Neurological: Normal speech, Normal tone, Normal affect - Studies Medications List Reviewed: Yes Assessment & Plan - Problems (Diagnosis) (1) Cellulitis Current Visit: Yes Status: Acute Qualifiers: Site of cellulitis of extremity: lower extremity (2) Generalized atherosclerosis Current Visit: Yes Status: Acute (3) Chronic venous hypertension peripheral Current Visit: No Status: Acute (4) Edema of lower extremity Current Visit: No Status: Acute (5) Lymphedema Current Visit: No Status: Acute (6) Chronic CHF Current Visit: Yes Status: Acute Qualifiers: Heart failure type: diastolic Qualified Code(s): I50.32 - Chronic diastolic (congestive) heart failure (7) Atrial fibrillation Current Visit: Yes Status: Acute - Plan CONTINUE WITH POC MENTIONED BELOW: 1. Continue with IV antibiotic 2. Continue with local wound care 3. Wound care consultation/surgical consultation appreciated 4. Heplock IV and diurese 5. Monitor CBC 6. Strict blood sugar monitoring 7. Pain control 8. GI and DVT prophylaxis
--- NOTE | 2021-07-18 18:37 | P.PN ---
Date of Service: 07/18/21 Subjective Patient doesn't want to go home until constipation improved-from my medical opinion pt safe for DC; Review of Systems 10-point ROS is otherwise unremarkable Physical Examination - Vital Signs REVIEWED - Physical Exam General: Alert, In no apparent distress, Oriented x3, Obese Respiratory: Clear to auscultation bilaterally, Normal air movement Cardiovascular: Regular rate/rhythm, Normal S1 S2 Gastrointestinal: Normal bowel sounds, Soft and benign, Non-distended, No tenderness Musculoskeletal: No clubbing, No swelling, No erythema, No tenderness Integumentary: Tenderness/swelling, Erythema, Warmth-resolving Neurological: Normal speech, Normal tone, Normal affect - Studies Medications List Reviewed: Yes Assessment & Plan - Problems (Diagnosis) (1) Cellulitis Current Visit: Yes Status: Acute Qualifiers: Site of cellulitis of extremity: lower extremity (2) Generalized atherosclerosis Current Visit: Yes Status: Acute (3) Chronic venous hypertension peripheral Current Visit: No Status: Acute (4) Edema of lower extremity Current Visit: No Status: Acute (5) Lymphedema Current Visit: No Status: Acute (6) Chronic CHF Current Visit: Yes Status: Acute Qualifiers: Heart failure type: diastolic Qualified Code(s): I50.32 - Chronic diastolic (congestive) heart failure (7) Atrial fibrillation Current Visit: Yes Status: Acute - Plan CONTINUE WITH POC MENTIONED BELOW: 0. pt safe for DC 1. Continue with IV antibiotic 2. Continue with local wound care 3. Wound care consultation/surgical consultation appreciated 4. Heplock IV and diurese 5. Monitor CBC 6. Strict blood sugar monitoring 7. Pain control 8. GI and DVT prophylaxis
--- NOTE | 2021-07-18 20:14 | P.PN ---
Date of Service: 07/18/21 Vital Signs Temp Pulse Resp BP Pulse Ox 97.1 F 56 18 166/65 H 97 07/18/21 20:00 07/18/21 20:00 07/18/21 20:00 07/18/21 20:00 07/18/21 20:00 Medications Acetaminophen (Acetaminophen 500 Mg Tab) 500 mg PO Q4HP PRN PRN Reason: TEMP > 101' F Amiodarone HCl (Amiodarone Hcl 200 Mg Tab) 100 mg PO DAILY [facility] Last Admin: 07/18/21 10:03 Dose: 100 mg Documented by: Amlodipine Besylate (Amlodipine 5 Mg Tab) 5 mg PO DAILY [facility] Last Admin: 07/18/21 10:04 Dose: 5 mg Documented by: Aspirin (Aspirin 81 Mg Chewable Tablet) 81 mg PO DAILY [facility] Last Admin: 07/18/21 10:00 Dose: 81 mg Documented by: Atorvastatin Calcium (Atorvastatin 10 Mg Tab) 10 mg PO BEDTIME [facility] Last Admin: 07/17/21 21:00 Dose: 10 mg Documented by: Bumetanide (Bumetanide 1 Mg Tablet) 4 mg PO BID [facility] Last Admin: 07/18/21 09:00 Dose: 4 mg Documented by: Cephalexin HCl (Cephalexin 250 Mg Cap) 500 mg PO QID [facility]; Protocol Last Admin: 07/18/21 17:08 Dose: 500 mg Documented by: Cholecalciferol (Vitamin D 1000 Unit Tab) 1,000 unit PO DAILY [facility] Last Admin: 07/18/21 10:00 Dose: 1,000 unit Documented by: Collagenase (Collagenase 30 Gm Ointment) 1 appl TOP DAILY [facility] Last Admin: 07/18/21 09:00 Dose: 1 appl Documented by: Dextrose (D50w 25 Gm/50 Ml Syringe) 12.5 gm IV PRN PRN; Protocol PRN Reason: HYPOGLYCEMIA Docusate Sodium (Docusate Na 100 Mg Cap) 100 mg PO DAILY PRN PRN Reason: CONSTIPATION Last Admin: 07/18/21 15:18 Dose: 100 mg Documented by: Fentanyl Citrate (Fentanyl Citr 100 Mcg/2 Ml) 25 mcg IV Q3H PRN PRN Reason: Pain scale 8-10 (Severe) Gabapentin (Gabapentin 100 Mg Cap) 200 mg PO TID [facility] Last Admin: 07/18/21 14:15 Dose: 200 mg Documented by: Glucagon (Glucagon 1 Mg/Vial) 1 mg IM 1X PRN; Protocol PRN Reason: HYPOGLYCEMIA Home Med (Thyroid,Pork [[place] Thyroid]) 2.5 tab PO DAILY [facility] Last Admin: 07/18/21 09:00 Dose: Not Given Documented by: Insulin Human NPH (Nph (Human) 100 Units/Ml Insulin) 25 units SQ BID [facility] Last Admin: 07/18/21 10:06 Dose: 25 units Documented by: Insulin Human Regular (Insulin -Regular Human 50 Unit/0.5 Ml Ml) 0 unit SQ ACHS [facility]; Protocol Last Admin: 07/18/21 17:08 Dose: 7 unit Documented by: Lorazepam (Lorazepam 0.5 Mg Tablet) 0.5 mg PO BID PRN PRN Reason: ANXIETY Losartan Potassium (Losartan Potassium 50 Mg Tablet) 25 mg PO DAILY [facility] Last Admin: 07/18/21 10:01 Dose: 25 mg Documented by: Magnesium Oxide (Magnesium Oxide 400 Mg Tab) 400 mg PO DAILY [facility] Last Admin: 07/18/21 10:05 Dose: 400 mg Documented by: Meclizine HCl (Meclizine Hcl 12.5 Mg Tab) 25 mg PO TID PRN PRN Reason: DIZZINESS Last Admin: 07/16/21 20:08 Dose: 25 mg Documented by: Montelukast Sodium (Montelukast 10 Mg Tab) 10 mg PO DAILY [facility] Last Admin: 07/18/21 10:00 Dose: 10 mg Documented by: Nystatin (Nystatin Pwdr [id number] Unit/Gm) 1 appl TOP BID [facility] Last Admin: 07/18/21 09:00 Dose: 1 appl Documented by: Ondansetron HCl (Ondansetron 4 Mg/2 Ml Vial) 4 mg IV Q6HP PRN PRN Reason: NAUSEA / VOMITING Rivaroxaban (Rivaroxaban 20 Mg Tablet) 20 mg PO DAILY AT SUPPER [facility] Last Admin: 07/18/21 17:09 Dose: 20 mg Documented by: Sodium Chloride (Flush Normal Saline 10 Ml) 10 ml IV BID [facility] Last Admin: 07/18/21 10:14 Dose: 10 ml Documented by: Spironolactone (Spironolactone 25 Mg Tablet) 25 mg PO BID [facility] Last Admin: 07/18/21 10:02 Dose: 25 mg Documented by: Tramadol/Acetaminophen (Tramadol 37.5mg/Apap 325mg Per Tab) 1 tab PO Q4H PRN PRN Reason: Pain scale 5-7 (Moderate) Last Admin: 07/17/21 21:40 Dose: 1 tab Documented by: Microbiology Results 07/12/21 11:15 Blood - Blood Aerobic Blood Culture - Final No growth in 5 days. 07/12/21 11:15 Blood - Blood Anaerobic Blood Culture - Final No growth in 5 days. 07/12/21 09:30 Blood - Blood Aerobic Blood Culture - Final No growth in 5 days. 07/12/21 09:30 Blood - Blood Anaerobic Blood Culture - Final No growth in 5 days. Assessment/ Plan: Nephrology Progress Note Feeling better. No chest pain or dyspnea No acute events overnight Vitals, medications blood work and imaging reviewed in the chart General: In no apparent distress, Oriented x3, Cooperative HEENT: Atraumatic Neck: Supple Respiratory: Clear to auscultation bilaterally Cardiovascular: Regular rate/rhythm, Edema Gastrointestinal: Soft and benign, Non-distended Musculoskeletal: No clubbing, Erythema, Tenderness, Warmth Integumentary: No cyanosis, Skin breakdown, Skin lesion Neurological: Normal speech Laboratory Data (last 24 hrs) 07/12/21 09:30: PT 25.8 H, INR 2.23, APTT 35.6 07/12/21 09:30: Sodium 136, Potassium 4.1, BUN 79 H, Creatinine 1.57 H, Glucose 290 H 07/12/21 09:30: WBC 8.30, Hgb 13.0, Hct 38.6, Plt Count 198 Imagings Data: EXAM DESCRIPTION: US - Extrem Venous W Compress Ken - 07/12/2021 11:02 am CLINICAL HISTORY: Swelling COMPARISON: None TECHNIQUE: Real-time sonographic evaluation of the bilateral lower extremity deep venous systems was performed. FINDINGS: Normal compressibility, flow augmentation, phasic flow and sponta neous flow is identified in both the left and right lower extremity deep venous systems. No intraluminal filling defects seen. IMPRESSION: No DVT in either lower extremity. EXAM DESCRIPTION: US - Renal Ultrasound-Complete - 07/12/2021 3:53 pm CLINICAL HISTORY: Acute on chronic renal disease COMPARISON: None FINDINGS: The right kidney measures 12 cm with a normal echotexture. 3 centimeter hypoechoic structure mid to upper pole right kidney The left kidney measures 9.5 cm with a normal echotexture. Hydronephrosis is not seen. Limited evaluation the bladder is the patient had recently voided IMPRESSION: 3 centimeter hypoechoic structure mid to upper pole right kidney probably lobulation. However, as a mass can have this appearance it is recommended that the patient have a nonemergent CT scan of the kidneys with and without IV contrast for further evaluation. If the creatinine stays persistently high an unenhanced MRI could be obtained instead Conclusions/Impression: EZEQUIEL may be CRS CKD III -No NSAIDs Right kidney 3cm lesion -Repeat CT negative for mass HTN with CKD/ CHF -Continue Amlodipine and Losartan Diastolic CHF, A/C Chronic Lymphedema -Continue Losartan -Continue Bumex 4mg BID -Continue spironolactone BID DM II with hyperglycemia -RISS RLE Cellulitis/ Ulcer -Continue Cefepime and Vancomycin -Monitor Vanc level -Follow up with surgery
[2021-07-18] MEDS: ATORVASTATIN 10 MG TAB PO SCH (20:45)
[2021-07-19 06:56] LABS: Potassium 4.4 mmol/L (3.5-5.1)
[2021-07-19] MEDS: INSULIN -REGULAR HUMAN 50 UNIT/0.5 ML ML SQ SCH ×4 (07:30→20:51)
[2021-07-19] MEDS ORDERED: ALBUMIN HUMAN 25% 100 ML IV ONE (08:58)
[2021-07-19] MEDS: THYROID PORK 15 MG PO SCH (09:00)
[2021-07-19] MEDS: COLLAGENASE 30 GM OINTMENT TOP SCH (09:00)
[2021-07-19] MEDS: MAGNESIUM OXIDE 400 MG TAB PO SCH (09:00)
[2021-07-19] MEDS: NYSTATIN PWDR 100000 UNIT/GM TOP SCH ×2 (09:00→20:50)
[2021-07-19] MEDS: NPH (HUMAN) 100 UNITS/ML INSULIN SQ SCH ×3 (09:00→20:52)
[2021-07-19] MEDS: CEPHALEXIN 250 MG CAP PO SCH ×4 (09:08→20:48)
[2021-07-19] MEDS: GABAPENTIN 100 MG CAP PO SCH ×3 (09:08→20:51)
[2021-07-19] MEDS: VITAMIN D 1000 UNIT TAB PO SCH (09:08)
[2021-07-19] MEDS: ASPIRIN 81 MG CHEWABLE TABLET PO SCH (09:08)
[2021-07-19] MEDS: SPIRONOLACTONE 25 MG TABLET PO SCH ×2 (09:08→20:49)
[2021-07-19] MEDS: AMLODIPINE 5 MG TAB PO SCH (09:10)
[2021-07-19] MEDS: MONTELUKAST 10 MG TAB PO SCH (09:10)
[2021-07-19] MEDS: AMIODARONE HCL 200 MG TAB PO SCH (09:10)
[2021-07-19] MEDS: BUMETANIDE 1 MG TABLET PO SCH ×2 (09:10→20:49)
[2021-07-19] MEDS: LOSARTAN POTASSIUM 50 MG TABLET PO SCH (09:11)
[2021-07-19] MEDS ORDERED: HYDROCORTISONE SUC 100 MG INJ IV ONE (09:24)
--- NOTE | 2021-07-19 09:29 | P.PN ---
Date of Service: 07/19/21 Subjective Complaint of left elbow pain. Work with physical therapy well. Patient may have some mild gouty arthropathy. No significant erythema or inflammation noted. Pain on movement of the left elbow. Continue with Bumex twice a day. Anticipate discharge home. Patient awaiting for Medicare refusal or denial. Review of Systems 10-point ROS is otherwise unremarkable Physical Examination - Vital Signs REVIEWED - Physical Exam General: Alert, In no apparent distress, Oriented x3, Obese Respiratory: Clear to auscultation bilaterally, Normal air movement Cardiovascular: Regular rate/rhythm, Normal S1 S2 Gastrointestinal: Normal bowel sounds, Soft and benign, Non-distended, No tenderness Musculoskeletal: No clubbing, No swelling, No erythema, left elbow tenderness Integumentary: Erythema improved Neurological: Normal speech, Normal tone, Normal affect - Studies Medications List Reviewed: Yes Assessment & Plan - Problems (Diagnosis) (1) Cellulitis Current Visit: Yes Status: Acute Qualifiers: Site of cellulitis of extremity: lower extremity (2) Generalized atherosclerosis Current Visit: Yes Status: Acute (3) Chronic venous hypertension peripheral Current Visit: No Status: Acute (4) Edema of lower extremity Current Visit: No Status: Acute (5) Lymphedema Current Visit: No Status: Acute (6) Chronic CHF Current Visit: Yes Status: Acute Qualifiers: Heart failure type: diastolic Qualified Code(s): I50.32 - Chronic diastolic (congestive) heart failure (7) Atrial fibrillation Current Visit: Yes Status: Acute - Plan CONTINUE WITH POC MENTIONED BELOW: 1. Continue with IV antibiotic; change to oral antibiotic 2. Continue with local wound care 3. Wound care consultation/surgical consultation appreciated 4. IV albumin and continue with Bumex 4 mg twice a day 5. Monitor CBC 6. Strict blood sugar monitoring 7. Pain control; IV steroids x1 for left elbow pain 8. GI and DVT prophylaxis
--- NOTE | 2021-07-19 11:07 | P.PN ---
Subjective Date of Service: 07/19/21 Primary Care Provider: Dr. Goldberg; Cardiology-Dr. Baltazar Chief Complaint: Right lower extremity erythema Patient seen examined at bedside, doing well with no acute complaints. Will complete antibiotics tomorrow. Review of Systems 10-point ROS is otherwise unremarkable Physical Examination - Vital Signs Temperature: 97.4 F Blood Pressure: 176/74 Pulse: 56 Respirations: 16 Pulse Ox (%): 98 - Studies Laboratory Last Values WBC 8.30 K/uL (4.3-10.9) 07/12/21 09:30 RBC 4.41 M/uL (3.86-4.86) 07/12/21 09:30 Hgb 13.0 g/dL (12.0-15.0) 07/12/21 09:30 Hct 38.6 % (36.0-45.0) 07/12/21 09:30 MCV 87.7 fL (80-100) 07/12/21 09:30 MCH 29.4 pg (27.0-35.0) 07/12/21 09:30 MCHC 33.6 g/dL (32.0-36.0) 07/12/21 09:30 RDW 13.4 % (12.1-15.2) 07/12/21 09:30 Plt Count 198 K/uL (152-406) 07/12/21 09:30 MPV 11.5 fL (7.6-11.3) H 07/12/21 09:30 Neutrophils % 82.2 % (41.7-73.7) H 07/12/21 09:30 Lymphocytes % 10.9 % (15.3-44.8) L 07/12/21 09:30 Monocytes % 5.2 % (3.3-12.3) 07/12/21 09:30 Eosinophils % 1.4 % (0-4.4) 07/12/21 09:30 Basophils % 0.3 % (0-1.3) 07/12/21 09:30 Absolute Neutrophils 6.8 K/uL (1.8-8.0) 07/12/21 09:30 Absolute Lymphocytes 0.9 K/uL (0.7-4.9) 07/12/21 09:30 Absolute Monocytes 0.4 K/uL (0.1-1.3) 07/12/21 09:30 Absolute Eosinophils 0.1 K/uL (0-0.5) 07/12/21 09:30 Absolute Basophils 0.0 K/uL (0-0.5) 07/12/21 09:30 PT 25.8 SECONDS (9.5-12.5) H 07/12/21 09:30 INR 2.23 07/12/21 09:30 APTT 35.6 SECONDS (24.3-36.9) 07/12/21 09:30 Sodium 136 mmol/L (136-145) 07/12/21 09:30 Potassium 4.1 mmol/L (3.5-5.1) 07/12/21 09:30 Chloride 98 mmol/L (98-107) 07/12/21 09:30 Carbon Dioxide 29 mmol/L (21-32) 07/12/21 09:30 BUN 79 mg/dL (7-18) H 07/12/21 09:30 Creatinine 1.57 mg/dL (0.55-1.3) H 07/12/21 09:30 Estimated GFR 33 mL/min (=/>90) L 07/12/21 09:30 Glucose 290 mg/dL (74-106) H 07/12/21 09:30 Calcium 9.7 mg/dL (8.5-10.1) 07/12/21 09:30 Procalcitonin < 0.05 ng/mL (<0.050) 07/12/21 09:30 SARS-CoV-2 Rap RNA(RT-PCR) Negative (NEGATIVE) 07/12/21 09:30 Medications List Reviewed: Yes Assessment And Plan - Plan Physical Exam: General: Alert, In no apparent distress, Oriented x3, Obese HEENT: Atraumatic, Normocephalic Neck: Supple, 2+ carotid pulse no bruit Respiratory: Clear to auscultation bilaterally, Normal air movement Cardiovascular: No edema, Normal S1 S2 Gastrointestinal: Normal bowel sounds, Soft and benign, Non-distended Musculoskeletal: No clubbing, No swelling Integumentary: Pressure ulcer (Bilateral posterior mid thigh with minimal tissue breakdown, richard wound tissue black/purple discoloration), Other (Bilateral lower extremity lymphedema, right lower extremity erythema and venous ulcerations we eping serous fluid.) Conclusions/Impression: Antibiotics: kflex start: 07/16 stop: 07/26 Vancomycin Start: 07/13 Stop: 07/16 Cefepime Start: 07/13 Stop: 07/16 Assessment/plan Right lower extremity cellulitis Patient underwent excisional debridement on 07/13. Vancomycin and cefepime de escalated to oral cephalexin. Continue cephalexin for 10 days. Wound care per surgical team, currently utilizing santyl. Patient will need to follow up outpatient in wound Care Clinic. Bilateral lower extremity lymphedema Keep legs elevated and wrapped Bilateral posterior thigh stage II pressure wounds Apply Xeroform and cover with Mepilex. Patient will go home with home health, however dressing needs to be changed every 24 hr and home health can on the comp 3 times a week. As such patient will need wound care supplies to take care of her wounds at home. Diabetes mellitus type 2 uncontrolled insulin-dependent Hemoglobin A1c of 9.0%. Strict glucose monitoring in needed for proper wound healing and infection control. Continue sliding scale insulin. Medical management per primary team Continue to monitor CBC and BMP Continue to monitor for signs infection Plan of care discussed with Dr. Cowan Thank you for consultation
[2021-07-19] MEDS: RIVAROXABAN 20 MG TABLET PO SCH (16:42)
[2021-07-19] MEDS ORDERED: LOSARTAN POTASSIUM 50 MG TABLET PO SCH (20:03)
--- NOTE | 2021-07-19 20:06 | P.PN ---
Date of Service: 07/19/21 Vital Signs Temp Pulse Resp BP Pulse Ox 97.9 F 55 16 115/54 L 95 07/19/21 16:00 07/19/21 16:00 07/19/21 16:00 07/19/21 16:00 07/19/21 16:00 Medications Acetaminophen (Acetaminophen 500 Mg Tab) 500 mg PO Q4HP PRN PRN Reason: TEMP > 101' F Amiodarone HCl (Amiodarone Hcl 200 Mg Tab) 100 mg PO DAILY [facility] Last Admin: 07/19/21 09:10 Dose: 100 mg Documented by: Amlodipine Besylate (Amlodipine 5 Mg Tab) 5 mg PO DAILY [facility] Last Admin: 07/19/21 09:10 Dose: 5 mg Documented by: Aspirin (Aspirin 81 Mg Chewable Tablet) 81 mg PO DAILY [facility] Last Admin: 07/19/21 09:08 Dose: 81 mg Documented by: Atorvastatin Calcium (Atorvastatin 10 Mg Tab) 10 mg PO BEDTIME [facility] Last Admin: 07/18/21 20:45 Dose: 10 mg Documented by: Bumetanide (Bumetanide 1 Mg Tablet) 4 mg PO BID [facility] Last Admin: 07/19/21 09:10 Dose: 4 mg Documented by: Cephalexin HCl (Cephalexin 250 Mg Cap) 500 mg PO QID [facility]; Protocol Last Admin: 07/19/21 16:42 Dose: 500 mg Documented by: Cholecalciferol (Vitamin D 1000 Unit Tab) 1,000 unit PO DAILY [facility] Last Admin: 07/19/21 09:08 Dose: 1,000 unit Documented by: Collagenase (Collagenase 30 Gm Ointment) 1 appl TOP DAILY [facility] Last Admin: 07/19/21 09:00 Dose: 1 appl Documented by: Dextrose (D50w 25 Gm/50 Ml Syringe) 12.5 gm IV PRN PRN; Protocol PRN Reason: HYPOGLYCEMIA Docusate Sodium (Docusate Na 100 Mg Cap) 100 mg PO DAILY PRN PRN Reason: CONSTIPATION Last Admin: 07/18/21 15:18 Dose: 100 mg Documented by: Gabapentin (Gabapentin 100 Mg Cap) 200 mg PO TID [facility] Last Admin: 07/19/21 13:38 Dose: 200 mg Documented by: Glucagon (Glucagon 1 Mg/Vial) 1 mg IM 1X PRN; Protocol PRN Reason: HYPOGLYCEMIA Home Med (Thyroid,Pork [[place] Thyroid]) 2.5 tab PO DAILY [facility] Last Admin: 07/19/21 09:00 Dose: Not Given Documented by: Insulin Human NPH (Nph (Human) 100 Units/Ml Insulin) 25 units SQ BID [facility] Last Admin: 07/19/21 10:36 Dose: 25 units Documented by: Insulin Human Regular (Insulin -Regular Human 50 Unit/0.5 Ml Ml) 0 unit SQ [facility]; Protocol Last Admin: 07/19/21 16:42 Dose: 5 unit Documented by: Lorazepam (Lorazepam 0.5 Mg Tablet) 0.5 mg PO BID PRN PRN Reason: ANXIETY Losartan Potassium (Losartan Potassium 50 Mg Tablet) 25 mg PO DAILY [facility] Last Admin: 07/19/21 09:11 Dose: 25 mg Documented by: Magnesium Oxide (Magnesium Oxide 400 Mg Tab) 400 mg PO DAILY [facility] Last Admin: 07/19/21 09:00 Dose: 400 mg Documented by: Meclizine HCl (Meclizine Hcl 12.5 Mg Tab) 25 mg PO TID PRN PRN Reason: DIZZINESS Last Admin: 07/16/21 20:08 Dose: 25 mg Documented by: Montelukast Sodium (Montelukast 10 Mg Tab) 10 mg PO DAILY [facility] Last Admin: 07/19/21 09:10 Dose: 10 mg Documented by: Nystatin (Nystatin Pwdr [id number] Unit/Gm) 1 appl TOP BID [facility] Last Admin: 07/19/21 09:00 Dose: 1 appl Documented by: Ondansetron HCl (Ondansetron 4 Mg/2 Ml Vial) 4 mg IV Q6HP PRN PRN Reason: NAUSEA / VOMITING Rivaroxaban (Rivaroxaban 20 Mg Tablet) 20 mg PO DAILY AT SUPPER [facility] Last Admin: 07/19/21 16:42 Dose: 20 mg Documented by: Sodium Chloride (Flush Normal Saline 10 Ml) 10 ml IV BID [facility] Last Admin: 07/19/21 09:13 Dose: 10 ml Documented by: Spironolactone (Spironolactone 25 Mg Tablet) 25 mg PO BID [facility] Last Admin: 07/19/21 09:08 Dose: 25 mg Documented by: Microbiology Results 07/12/21 11:15 Blood - Blood Aerobic Blood Culture - Final No growth in 5 days. 07/12/21 11:15 Blood - Blood Anaerobic Blood Culture - Final No growth in 5 days. 07/12/21 09:30 Blood - Blood Aerobic Blood Culture - Final No growth in 5 days. 07/12/21 09:30 Blood - Blood Anaerobic Blood Culture - Final No growth in 5 days. Assessment/ Plan: Nephrology Progress Note Feeling better. Constipation. No chest pain or dyspnea No acute events overnight Vitals, medications blood work and imaging reviewed in the chart General: In no apparent distress, Oriented x3, Cooperative HEENT: Atraumatic Neck: Supple Respiratory: Clear to auscultation bilaterally Cardiovascular: Regular rate/rhythm, Edema Gastrointestinal: Soft and benign, Non-distended Musculoskeletal: No clubbing, Erythema, Tenderness, Warmth Integumentary: No cyanosis, Skin breakdown, Skin lesion Neurological: Normal speech Laboratory Data (last 24 hrs) 07/12/21 09:30: PT 25.8 H, INR 2.23, APTT 35.6 07/12/21 09:30: Sodium 136, Potassium 4.1, BUN 79 H, Creatinine 1.57 H, Glucose 290 H 07/12/21 09:30: WBC 8.30, Hgb 13.0, Hct 38.6, Plt Count 198 Imagings Data: EXAM DESCRIPTION: US - Extrem Venous W Compress Ken - 07/12/2021 11:02 am CLINICAL HISTORY: Swelling COMPARISON: None TECHNIQUE: Real-time sonographic evaluation of the bilateral lower extremity deep venous systems was performed. FINDINGS: Normal compressibility, flow augmentation, phasic flow and spontaneous flow is identified in both the left and right lower extremity deep venous systems. No intraluminal filling defects seen. IMPRESSION: No DVT in either lower extremity. EXAM DESCRIPTION: US - Renal Ultrasound-Complete - 07/12/2021 3:53 pm CLINICAL HISTORY: Acute on chronic renal disease COMPARISON: None FINDINGS: The right kidney measures 12 cm with a normal echotexture. 3 centimeter hypoechoic structure mid to upper pole right kidney The left kidney measures 9.5 cm with a normal echotexture. Hydronephrosis is not seen. Limited evaluation the bladder is the patient had recently voided IMPRESSION: 3 centimeter hypoechoic structure mid to upper pole right kidney probably lobulation. However, as a mass can have this appearance it is recommended that the patient have a nonemergent CT scan of the kidneys with and without IV contrast for further evaluation. If the creatinine stays persistently high an unenhanced MRI could be obtained instead Conclusions/Impression: EZEQUIEL may be CRS CKD III -No NSAIDs Right kidney 3cm lesion -Repeat CT negative for mass HTN with CKD/ CHF -Continue Amlodipine and Losartan Diastolic CHF, A/C Chronic Lymphedema -Continue Losartan -Continue Bumex 4mg BID -Continue spironolactone BID DM II with hyperglycemia -RISS RLE Cellulitis/ Ulcer -Continue Cefepime and Vancomycin -Monitor Vanc level -Follow up with surgery Slow transit constipation -Start Colace BID -MagOx 800mg X1 dose
[2021-07-19] MEDS: ATORVASTATIN 10 MG TAB PO SCH (20:48)
[2021-07-19] MEDS: DOCUSATE NA 100 MG CAP PO SCH (21:00)
[2021-07-19 23:55] LABS: UR PROTEIN 8.9 mg/dL (<11.9); Urine Protein/Creatinine Ratio 0.11 ratio (<0.15)
[2021-07-20 06:06] LABS: Albumin 2.7 g/dL (3.4-5.0); Bilirubin Total 0.3 mg/dL (0.2-1.0); Phosphorus 3.7 mg/dL (2.5-4.9); Potassium 3.8 mmol/L (3.5-5.1); Protein, Total 6.4 g/dL (6.4-8.2); Uric Acid 11.3 mg/dL (2.6-6.0)
[2021-07-20 08:29] VITALS: O2SAT 91
[2021-07-20] MEDS: COLLAGENASE 30 GM OINTMENT TOP SCH (09:00)
[2021-07-20] MEDS: THYROID PORK 15 MG PO SCH (09:00)
[2021-07-20] MEDS: NYSTATIN PWDR 100000 UNIT/GM TOP SCH (09:00)
[2021-07-20 09:43] VITALS: BP 148/69; TEMP 97.2
[2021-07-20] MEDS: ASPIRIN 81 MG CHEWABLE TABLET PO SCH (10:29)
[2021-07-20] MEDS: MONTELUKAST 10 MG TAB PO SCH (10:29)
[2021-07-20] MEDS: CEPHALEXIN 250 MG CAP PO SCH (10:29)
[2021-07-20] MEDS: DOCUSATE NA 100 MG CAP PO SCH (10:29)
[2021-07-20] MEDS: GABAPENTIN 100 MG CAP PO SCH (10:30)
[2021-07-20] MEDS: AMIODARONE HCL 200 MG TAB PO SCH (10:30)
[2021-07-20] MEDS: VITAMIN D 1000 UNIT TAB PO SCH (10:30)
[2021-07-20] MEDS: AMLODIPINE 5 MG TAB PO SCH (10:31)
[2021-07-20] MEDS: INSULIN -REGULAR HUMAN 50 UNIT/0.5 ML ML SQ SCH (10:32)
[2021-07-20] MEDS: BUMETANIDE 1 MG TABLET PO SCH (10:32)
[2021-07-20] MEDS: SPIRONOLACTONE 25 MG TABLET PO SCH (10:32)
[2021-07-20] MEDS: NPH (HUMAN) 100 UNITS/ML INSULIN SQ SCH (10:33)
--- NOTE | 2021-07-20 12:13 | P.PN ---
Subjective Date of Service: 07/20/21 Primary Care Provider: Dr. Goldberg; Cardiology-Dr. Baltazar Chief Complaint: Right lower extremity erythema Patient seen examined at bedside, doing well. Denies nausea/vomiting/diarrhea. Review of Systems 10-point ROS is otherwise unremarkable Physical Examination - Vital Signs Temperature: 97.2 F Blood Pressure: 148/69 Pulse: 50 Respirations: 22 Pulse Ox (%): 96 - Studies Laboratory Last Values WBC 8.30 K/uL (4.3-10.9) 07/12/21 09:30 RBC 4.41 M/uL (3.86-4.86) 07/12/21 09:30 Hgb 13.0 g/dL (12.0-15.0) 07/12/21 09:30 Hct 38.6 % (36.0-45.0) 07/12/21 09:30 MCV 87.7 fL (80-100) 07/12/21 09:30 MCH 29.4 pg (27.0-35.0) 07/12/21 09:30 MCHC 33.6 g/dL (32.0-36.0) 07/12/21 09:30 RDW 13.4 % (12.1-15.2) 07/12/21 09:30 Plt Count 198 K/uL (152-406) 07/12/21 09:30 MPV 11.5 fL (7.6-11.3) H 07/12/21 09:30 Neutrophils % 82.2 % (41.7-73.7) H 07/12/21 09:30 Lymphocytes % 10.9 % (15.3-44.8) L 07/12/21 09:30 Monocytes % 5.2 % (3.3-12.3) 07/12/21 09:30 Eosinophils % 1.4 % (0-4.4) 07/12/21 09:30 Basophils % 0.3 % (0-1.3) 07/12/21 09:30 Absolute Neutrophils 6.8 K/uL (1.8-8.0) 07/12/21 09:30 Absolute Lymphocytes 0.9 K/uL (0.7-4.9) 07/12/21 09:30 Absolute Monocytes 0.4 K/uL (0.1-1.3) 07/12/21 09:30 Absolute Eosinophils 0.1 K/uL (0-0.5) 07/12/21 09:30 Absolute Basophils 0.0 K/uL (0-0.5) 07/12/21 09:30 PT 25.8 SECONDS (9.5-12.5) H 07/12/21 09:30 INR 2.23 07/12/21 09:30 APTT 35.6 SECONDS (24.3-36.9) 07/12/21 09:30 Sodium 136 mmol/L (136-145) 07/12/21 09:30 Potassium 4.1 mmol/L (3.5-5.1) 07/12/21 09:30 Chloride 98 mmol/L (98-107) 07/12/21 09:30 Carbon Dioxide 29 mmol/L (21-32) 07/12/21 09:30 BUN 79 mg/dL (7-18) H 07/12/21 09:30 Creatinine 1.57 mg/dL (0.55-1.3) H 07/12/21 09:30 Estimated GFR 33 mL/min (=/>90) L 07/12/21 09:30 Glucose 290 mg/dL (74-106) H 07/12/21 09:30 Calcium 9.7 mg/dL (8.5-10.1) 07/12/21 09:30 Procalcitonin < 0.05 ng/mL (<0.050) 07/12/21 09:30 SARS-CoV-2 Rap RNA(RT-PCR) Negative (NEGATIVE) 07/12/21 09:30 Medications List Reviewed: Yes Assessment And Plan - Plan Physical Exam: General: Alert, In no apparent distress, Oriented x3, Obese HEENT: Atraumatic, Normocephalic Neck: Supple, 2+ carotid pulse no bruit Respiratory: Clear to auscultation bilaterally, Normal air movement Cardiovascular: No edema, Normal S1 S2 Gastrointestinal: Normal bowel sounds, Soft and benign, Non-distended Musculoskeletal: No clubbing, No swelling Integumentary: Pressure ulcer (Bilateral posterior mid thigh with minimal tissue breakdown, richard wound tissue black/purple discoloration), Other (Bilateral lower extremity lymphedema, right lower extremity erythema and venous ulcerations weeping serous fluid.) Conclusions/Impression: Antibiotics: kflex start: 07/16 stop: 07/26 Vancomycin Start: 07/13 Stop: 07/16 Cefepime Start: 07/13 Stop: 07/16 Assessment/plan Right lower extremity cellulitis Patient underwent excisional debridement on 07/13. Vancomycin and cefepime de escalated to oral cephalexin. Continue cephalexin for 10 days. Wound care per surgical team. Patient will need to follow up outpatient in wound Care Clinic. Bilateral lower extremity lymphedema Keep legs elevated and wrapped Bilateral posterior thigh stage II pressure wounds Apply Xeroform and cover with Mepilex. Patient will go home with home health, however dressing needs to be changed every 24 hr and home health can on the comp 3 times a week. As such patient will need wound care supplies to take care of her wounds at home. Diabetes mellitus type 2 uncontrolled insulin-dependent Hemoglobin A1c of 9.0%. Strict glucose monitoring in needed for proper wound healing and infection control. Continue sliding scale insulin. Medical management per primary team Continue to monitor CBC and BMP Continue to monitor for signs infection Plan of care discussed with Dr. Cowan Thank you for consultation
[2021-07-20] MEDS ORDERED: DOCUSATE NA/SENNA CONC 1 TAB PO ONE (14:15)
--- NOTE | 2021-07-20 20:08 | P.PN ---
Date of Service: 07/20/21 Vital Signs Temp Pulse Resp BP Pulse Ox 97.2 F 50 22 H 148/69 H 96 07/20/21 12:12 07/20/21 12:12 07/20/21 12:12 07/20/21 12:12 07/20/21 12:12 Microbiology Results 07/12/21 11:15 Blood - Blood Aerobic Blood Culture - Final No growth in 5 days. 07/12/21 11:15 Blood - Blood Anaerobic Blood Culture - Final No growth in 5 days. 07/12/21 09:30 Blood - Blood Aerobic Blood Culture - Final No growth in 5 days. 07/12/21 09:30 Blood - Blood Anaerobic Blood Culture - Final No growth in 5 days. Assessment/ Plan: Nephrology Progress Note Feeling better. Persistent constipation. No chest pain or dyspnea No acute events overnight Vitals, medications blood work and imaging reviewed in the chart General: In no apparent distress, Oriented x3, Cooperative HEENT: Atraumatic Neck: Supple Respiratory: Clear to auscultation bilaterally Cardiovascular: Regular rate/rhythm, Edema Gastrointestinal: Soft and benign, Non-distended Musculoskeletal: No clubbing, Erythema, Tenderness, Warmth Integumentary: No cyanosis, Skin breakdown, Skin lesion Neurological: Normal speech Laboratory Data (last 24 hrs) 07/12/21 09:30: PT 25.8 H, INR 2.23, APTT 35.6 07/12/21 09:30: Sodium 136, Potassium 4.1, BUN 79 H, Creatinine 1.57 H, Glucose 290 H 07/12/21 09:30: WBC 8.30, Hgb 13.0, Hct 38.6, Plt Count 198 Imagings Data: EXAM DESCRIPTION: US - Extrem Venous W Compress Ken - 07/12/2021 11:02 am CLINICAL HISTORY: Swelling COMPARISON: None TECHNIQUE: Real-time sonographic evaluation of the bilateral lower extremity deep venous systems was performed. FINDINGS: Normal compressibility, flow augmentation, phasic flow and spontaneous flow is identified in both the left and right lower extremity deep venous systems. No intraluminal filling defects seen. IMPRESSION: No DVT in either lower extremity. EXAM DESCRIPTION: US - Renal Ultrasound-Complete - 07/12/2021 3:53 pm CLINICAL HISTORY: Acute on chronic renal disease COMPARISON: None FINDINGS: The right kidney measures 12 cm with a normal echotexture. 3 centimeter hypoechoic structure mid to upper pole right kidney The left kidney measures 9.5 cm with a normal echotexture. Hydronephrosis is not seen. Limited evaluation the bladder is the patient had recently voided IMPRESSION: 3 centimeter hypoechoic structure mid to upper pole right kidney probably lobulation. However, as a mass can have this appearance it is recommended that the patient have a nonemergent CT scan of the kidneys with and without IV contrast for further evaluation. If the creatinine stays persistently high an unenhanced MRI could be obtained instead Conclusions/Impression: EZEQUIEL may be CRS CKD III -No NSAIDs Right kidney 3cm lesion -Repeat CT negative for mass HTN with CKD/ CHF -Continue Amlodipine and Losartan Diastolic CHF, A/C Chronic Lymphedema -Continue Losartan -Continue Bumex 4mg BID -Continue spironolactone BID DM II with hyperglycemia -RISS RLE Cellulitis/ Ulcer -Continue Cefepime and Vancomycin -Monitor Vanc level -Follow up with surgery Slow transit constipation -Continue Colace BID -Give Senna X1
[2021-07-20] MEDS ORDERED: MAGNESIUM OXIDE 400 MG TAB PO ONE (20:15)
--- NOTE | 2021-07-30 17:04 | P.DS ---
Discharge Date: 07/20/21 Primary Care Provider: Dr. Goldberg; Cardiology-Dr. Baltazar Disposition: DC HOME/HOME HEALTH CARE Discharge Condition: GOOD Reason for Admission: Right lower extremity erythema - Problems (1) Cellulitis Status: Resolved Qualifiers: Site of cellulitis of extremity: lower extremity (2) Generalized atherosclerosis Status: Acute (3) Chronic venous hypertension peripheral Status: Acute (4) Edema of lower extremity Status: Acute (5) Lymphedema Status: Chronic (6) Chronic CHF Status: Acute Qualifiers: Heart failure type: diastolic Qualified Code(s): I50.32 - Chronic diastolic (congestive) heart failure (7) Atrial fibrillation Status: Acute Brief History of Present Illness: 70-year-old female with history of diabetes mellitus type 2 insulin- dependent, hypertension, atrial fibrillation on chronic anticoagulation therapy, CHF, hyperlipidemia. Patient presented with increasing erythema to the right lower extremity. Patient had been seen by her PCP. No improvement was noted. She denied any fever, chills. Increased weeping to the right lower extremity identified. Patient with history of chronic lymphedema. She came to the ER for further evaluation. In the ER patient was evaluated. Breakdown noted to the right lower extremity. Erythema, swelling noted as well. White count within normal range. Sodium 136, potassium 4.1. BUN of 79, creatinine 1.5 with a GFR of 33. Glucose 290. Patient admitted for further evaluation and treatment. Hospital Course: Patient was seen by surgery. Patient had wound care. No aggressive intervention was necessary. Patient will need continued lymphedema Clinic. Continue with outpatient wound care as well. Patient does not really follow-up because she does not have insurance sometimes to cover home health. Hopefully she will be able to continue doing dressing changes. Hopefully she will be able to continue getting her medications and treatment. At this time, patient is stable for discharge home. Vital Signs/Physical Exam: Temp Pulse Resp BP Pulse Ox 97.2 F 50 22 H 148/69 H 96 07/20/21 12:12 07/20/21 12:12 07/20/21 12:12 07/20/21 12:12 07/20/21 12:12 General: Alert, In no apparent distress, Oriented x3 Laboratory Data at Discharge: WBC 7.50 K/uL (4.3-10.9) 07/15/21 05:11 Hgb 11.9 g/dL (12.0-15.0) L 07/15/21 05:11 Hct 35.5 % (36.0-45.0) L 07/15/21 05:11 Plt Count 215 K/uL (152-406) 07/15/21 05:11 PT 25.8 SECONDS (9.5-12.5) H 07/12/21 09:30 INR 2.23 07/12/21 09:30 APTT 35.6 SECONDS (24.3-36.9) 07/12/21 09:30 Sodium 140 mmol/L (136-145) 07/20/21 05:30 Potassium 3.8 mmol/L (3.5-5.1) 07/20/21 05:30 BUN 36 mg/dL (7-18) H 07/20/21 05:30 Creatinine 1.41 mg/dL (0.55-1.3) H 07/20/21 05:30 Glucose 162 mg/dL (74-106) H 07/20/21 05:30 Uric Acid 11.3 mg/dL (2.6-6.0) H 07/20/21 05:30 Phosphorus 3.7 mg/dL (2.5-4.9) 07/20/21 05:30 Magnesium 2.2 mg/dL (1.8-2.4) 07/16/21 05:06 Total Bilirubin 0.3 mg/dL (0.2-1.0) 07/20/21 05:30 AST 15 U/L (15-37) 07/20/21 05:30 ALT 21 U/L (12-78) 07/20/21 05:30 Alkaline Phosphatase 78 U/L (45-117) 07/20/21 05:30 Triglycerides 106 mg/dL (<150) 07/13/21 03:26 Cholesterol 148 mg/dL (<200) 07/13/21 03:26 HDL Cholesterol 52 mg/dL (40-60) 07/13/21 03:26 Cholesterol/HDL Ratio 2.85 07/13/21 03:26 Home Medications: Aspirin Chewable [Aspirin Chewable*] 1 tab PO DAILY 12/23/13 Gabapentin [Neurontin*] 2 tab PO TID 12/23/13 Lovastatin [Mevacor*] 20 mg PO BEDTIME 12/23/13 Magnesium Oxide [Mag 0X*] 400 mg PO DAILY 12/23/13 Meclizine HCl [Motion Sickness Relief] 1 tab PO TID PRN 12/23/13 Amlodipine [Norvasc*] 1 tab PO Q48H 07/13/21 Benzonatate [Tessalon Perle*] 1 tab PO TID PRN 07/13/21 Cholecalciferol (Vitamin D3) [Vitamin D3] 1 cap PO DAILY 07/13/21 Insulin Aspart [Novolog] 46 unit SQ BID 07/13/21 Insulin NPH Human Isophane [Novolin N] 46 unit SQ BID 07/13/21 Losartan Potassium 1 tab PO DAILY 07/13/21 Montelukast [Singulair*] 1 tab PO DAILY 07/13/21 Potassium Chloride [Micro-K] 1 cap PO DAILY 07/13/21 Rivaroxaban [Xarelto] 1 tab PO DAILY 07/13/21 Thyroid,Pork [Gasket Former Thyroid] 2.5 tab PO DAILY 07/13/21 Amiodarone HCl [Cordarone*] 100 mg PO DAILY #0 tab 07/18/21 Bumetanide [Bumex*] 4 mg PO BID #0 tab 07/18/21 Physician Discharge Instructions: OK TO DC IV AND DC HOME FOLLOW-UP WITH PRIMARY CARE PROVIDER IN 1-2 WEEKS FOLLOW-UP WITH wound healing IN 1-2 WEEKS RETURN TO THE ER IF symptoms worsen CALL or TEXT DR. POOLE AT [phone] IF ANY QUESTIONS REGARDING HOSPITAL STAY. PLEASE CALL THE FLOOR AT [phone] IF ANY MEDICATION OR NURSING QUESTIONS. Diet: AHA Activity: Fall precautions Followup: Jameel Lee DO [ACTIVE - CAN ADMIT] - Mike Mario MD [ACTIVE - CAN ADMIT] - Omar Back MD [ACTIVE - CAN ADMIT] - NONE,NONE [Primary Care Provider] - Time spent managing pt's care (in minutes): 35
== END 2021-07-20 15:00 | disposition home health service (06) | DRG 571 ==
LOC: ER 08:47 → ERHOLD 12:26 → 2ND 07-13 06:49
PROVIDERS: ADMIT Family Medicine; ATTEND Family Medicine
PROC: 0JBN0ZZ Excision of Right Lower Leg Subcutaneous Tissue and Fascia, Open Approach (ICD-10-PCS; 2021-07-13)
PROC: 0JBP0ZZ Excision of Left Lower Leg Subcutaneous Tissue and Fascia, Open Approach (ICD-10-PCS; principal; 2021-07-13 13:00)
DX: L03.115 Cellulitis of right lower limb (principal); Z68.43 Body mass index [BMI] 50.0-59.9, adult; I13.0 Hypertensive heart and chronic kidney disease with heart failure and stage 1 through stage 4 chronic kidney disease, or unspecified chronic kidney disease; I50.32 Chronic diastolic (congestive) heart failure; N17.9 Acute kidney failure, unspecified; I89.0 Lymphedema, not elsewhere classified; L89.892 Pressure ulcer of other site, stage 2; E66.01 Morbid (severe) obesity due to excess calories; I87.8 Other specified disorders of veins; E11.22 Type 2 diabetes mellitus with diabetic chronic kidney disease; N18.30 Chronic kidney disease, stage 3 unspecified; E78.5 Hyperlipidemia, unspecified; E11.65 Type 2 diabetes mellitus with hyperglycemia; E11.40 Type 2 diabetes mellitus with diabetic neuropathy, unspecified; E03.9 Hypothyroidism, unspecified; J30.2 Other seasonal allergic rhinitis; I48.0 Paroxysmal atrial fibrillation; B35.1 Tinea unguium; N28.9 Disorder of kidney and ureter, unspecified; Z79.01 Long term (current) use of anticoagulants; Z66 Do not resuscitate; Z88.2 Allergy status to sulfonamides; Z88.0 Allergy status to penicillin; Z20.822 Contact with and (suspected) exposure to COVID-19
CPT/HCPCS: 36415; 74176; 76770; 80048; 80053; 80061; 80202; 82570; 82947; 83036; 83735; 83880; 84100; 84145; 84156; 84439; 84443; 84550; 85025; 85610; 85730; 87040; 93306; 93970; 96374; 96375; 97116; 97161; 97530; 99251; 99284; J0692; J1720; J1815; J2175; J2405; J2704; J3010; J3370; J3590; J7030; J7040; P9047; U0003

== ENCOUNTER 2024-09-20 14:44 | Inpatient (IN) | payer OTHER ==
[2024-09-20] MEDS ORDERED: NA CHLORIDE 0.9% 500 ML ONE (15:40)
[2024-09-20 15:54] LABS: Absolute Lymphocytes (CBC) 1.3 K/uL (0.7-4.9); Absolute Monocytes 0.5 K/uL (0.1-1.3); Absolute Neutrophil 5.7 K/uL (1.8-8.0); Basophils % 0.5 % (0-1.3); Eosinophils % 0.4 % (0-4.4); Hematocrit 40.7 % (36.0-45.0); Hemoglobin 13.3 g/dL (12.0-15.0); Lymphocytes % 16.8 % (15.3-44.8); MCHC 32.6 g/dL (32.0-36.0); MCV 92.1 fL (80-100); MPV 10.5 fL (7.6-11.3); Monocytes % 6.8 % (3.3-12.3); Neutrophils % 75.5 % (41.7-73.7); Platelets 206 thou/uL (152-406); RBC Red Blood Cell Count 4.42 M/uL (3.86-4.86); Red Cell Distribution Width 14.8 % (12.1-15.2)
[2024-09-20 15:58] LABS: PT Prothrombin Time 27.1 SECONDS (9.4-12.5); PTT, Activated Partial Thromb 43.3 SECONDS (24.3-36.9); Protime INR 2.48
[2024-09-20 16:17] LABS: ALT/SGPT 34 U/L (13-56); AST/SGOT 27 U/L (15-37); Albumin/Globulin Ratio 0.8 (1.1-1.8); Alkaline Phosphatase 121 U/L (45-117); BUN Blood Urea Nitrogen 31 mg/dL (7-18); Bicarbonate 29 mEq/L (21-32); Bilirubin Total 0.4 mg/dL (0.2-1.0); Globulin 3.9 g/dL (2.3-3.5); Glomerular Filtration Rate 27 ml/min (=/>90); Glucose Level 238 mg/dL (74-106); Magnesium 2.1 mg/dL (1.6-2.4); NT PRO-BNP 403 pg/mL (<125); Protein, Total 6.9 g/dL (6.4-8.2); Sodium Level 137 mEq/L (136-145); Troponin High Sensitivity 11.3 pg/mL (<58.9)
[2024-09-20 16:18] LABS: Bilirubin Direct < 0.2 mg/dL (0-0.2); Bilirubin Indirect, Calculated 0.2 mg/dL (0.2-0.8)
--- NOTE | 2024-09-20 17:42 | RAD REPORT ---
EXAMINATION: ONE VIEW CHEST XR CLINICAL INDICATION: Female, 73 years old.,near syncope TECHNIQUE: Frontal chest projection is submitted. Examination is limited by patient positioning and t echnique. COMPARISON: 07/23/2022 FINDINGS: Central interstitial prominence. Decreased inspiratory effort limits evaluation. Left chest wall pace r/AICD in place. No pneumothorax or sizable effusion. The heart is normal in size. Mediastinal contours are unremarkable. IMPRESSION: Central interstitial prominence, may relate to mild central congestion/CHF.
--- NOTE | 2024-09-20 17:44 | RAD REPORT ---
EXAM: XR Knee Right 3 View HISTORY: [facility] MA[facility] PAIN Bed Name: 20 COMPARISON: None TECHNIQUE: 3 views of the right knee were obtained. FINDINGS: There is no evidence of acute fracture or dislocation. Moderate tricompartmental degenera tive changes, most pronounced along the medial weightbearing compartment. Focus of dystrophic mineralization in the suprapatellar space slightly laterally, could represent a calcified foreign bod y or sequelae of synovitis. Mild effusion. Enthesopathy at the quadriceps and patellar tendon attachments. IMPRESSION: No evidence of acute osseous abnormality. Chronic findings as above.
--- NOTE | 2024-09-20 17:46 | RAD REPORT ---
EXAM: XR Knee Left 3 View HISTORY: [facility] MAIN PAIN Bed Name: 20 COMPARISON: None TECHNIQUE: 3 views of the left knee were obtained. FINDINGS: No knee effusion is seen. There is no evidence of acute fracture or dislocation. Mild-to-m oderate tricompartmental degenerative changes are seen. Enthesopathy at the Achilles tendon attachment. No soft tissue swelling or other soft tissue abnormality is present. IMPRESSION: No evidence of acute osseous abnormality. Chronic findings as above.
--- NOTE | 2024-09-20 18:23 | ER ---
Nurse's Notes [facility] Name: Nikkie Ferrera Age: 73 yrs Sex: Female : 1950 Arrival Date: 09/20/2024 Time: 14:44 Bed 20 Private MD: Diagnosis: Weakness;Contusion of left knee;Contusion of right knee Presentation: 09/20 14:55 Chief complaint: EMS states: fall from standing position with walker. (-) LOC, no blood kc6 thinners. pt states, "my legs just gave out and I landed on both my knees. I was on the ground for about 30min before I called EMS.". Coronavirus screen: At this time, the client does not indicate any symptoms associated with coronavirus-19. Ebola Screen: No symptoms or risks identified at this time. Initial Sepsis Screen: Does the patient meet any 2 criteria? No. Patient's initial sepsis screen is negative. Does the patient have a suspected source of infection? No. Patient's initial sepsis screen is negative. Risk Assessment: Do you want to hurt yourself or someone else? Patient reports no desire to harm self or others. Onset of symptoms was September 20, 2024. 14:55 Method Of Arrival: EMS: [facility] kc6 14:55 Acuity: KRISTIAN 3 kc6 Triage Assessment: 14:55 General: Appears in no apparent distress. comfortable, obese, well groomed, well kc6 developed, Behavior is calm, cooperative, appropriate for age. Pain: Complains of pain in right knee and left knee. EENT: No signs and/or symptoms were reported regarding the EENT system. Neuro: Level of Consciousness is awake, alert, obeys commands, Oriented to person, place, time, situation, Appropriate for age. Cardiovascular: Capillary refill < 3 seconds. Respiratory: Airway is patent Trachea midline Respiratory effort is even, unlabored, Respiratory pattern is regular, symmetrical. GI: Reports constipation, Patient currently denies abdominal pain, nausea, vomiting. : No signs and/or symptoms were reported regarding the genitourinary system. Derm: No signs and/or symptoms reported regarding the dermatologic system. Skin is intact, is healthy with good turgor, Skin is dry, Skin is pale, Skin temperature is warm. Musculoskeletal: No signs and/or symptoms reported regarding the musculoskeletal system. Circulation, motion, and sensation intact. Capillary refill < 3 seconds, Range of motion: intact in all extremities. Historical: - Allergies: 14:57 Codeine; kc6 14:57 Doxycycline; kc6 14:57 Iodinated Contrast Media - IV Dye; kc6 14:57 Lidocaine; kc6 14:57 PENICILLINS; kc6 14:57 Sulfa (Sulfonamide Antibiotics); kc6 14:57 Morphine; kc6 - PMHx: 14:57 DM2; kc6 - Immunization history:: Adult Immunizations up to date. - Infectious Disease History:: Denies. - Social history:: Smoking status: Patient denies any tobacco usage or history of. - Family history:: not pertinent. - Hospitalizations: : No recent hospitalization is reported. Screenin:58 [facility] ED Fall Risk Assessment (Adult) History of falling in the last 3 months, kc6 including since admission Yes- single mechanical fall (1 pt) Confusion or Disorientation No (0 pts) Intoxicated or Sedated No (0 pts) Impaired Gait Yes (1 pt) Mobility Assist Device Used Yes (1 pt) Altered Elimination No (0 pt) Score/Fall Risk Level 3 or more points = High Risk Oriented to surroundings, Maintained a safe environment, Educated pt \\T\\ family on fall prevention, incl call for assistance when getting out of bed. Abuse screen: Denies threats or abuse. Denies injuries from another. Nutritional screening: No deficits noted. Tuberculosis screening: No symptoms or risk factors identified. Assessment: 15:00 General: Appears in no apparent distress. comfortable, Behavior is calm, cooperative, jb4 appropriate for age. Pain: Denies pain. Neuro: Level of Consciousness is awake, alert, obeys commands, Oriented to person, place, time, situation. Cardiovascular: Patient's skin is warm and dry. Respiratory: Airway is patent Respiratory effort is even, unlabored, Respiratory pattern is regular, symmetrical. Derm: Skin is pink, warm \\T\\ dry. Wound noted right tello. Musculoskeletal: Circulation, motion, and sensation intact. Range of motion: intact in all extremities. 16:00 Reassessment: Patient appears in no apparent distress at this time. Patient and/or jb4 family updated on plan of care and expected duration. Pain level reassessed. Patient is alert, oriented x 3, equal unlabored respirations, skin warm/dry/pink. 17:00 Reassessment: Patient appears in no apparent distress at this time. Patient and/or jb4 family updated on plan of care and expected duration. Pain level reassessed. Patient is alert, oriented x 3, equal unlabored respirations, skin warm/dry/pink. 18:00 Reassessment: Patient appears in no apparent distress at this time. Patient and/or jb4 family updated on plan of care and expected duration. Pain level reassessed. Patient is alert, oriented x 3, equal unlabored respirations, skin warm/dry/pink. 19:24 Reassessment: Patient appears in no apparent distress at this time. Patient and/or jb4 family updated on plan of care and expected duration. Pain level reassessed. Patient is alert, oriented x 3, equal unlabored respirations, skin warm/dry/pink. Vital Signs: 14:55 BP 109 / 74; Pulse 69; Resp 19 S; Pulse Ox 100% on R/A; Weight 151.05 kg (R); Height 5 kc6 ft. 8 in. (R); 16:00 BP 117 / 59; Pulse 68; Resp 16; Pulse Ox 95% on R/A; jb4 18:07 BP 114 / 66; Pulse 84; Resp 16; Pulse Ox 99% on R/A; jb4 19:00 BP 101 / 73; Pulse 67; Resp 16; Temp 98.6; Pulse Ox 97% on R/A; jb4 14:55 Body Mass Index 50.63 (151.05 kg, 172.72 cm) kc6 ED Course: 14:55 Patient arrived in ED. kc6 14:55 Aicha Mcmillan MD is Attending Physician. gb1 14:55 Attending Physician role handed off by Aicha Mcmillan MD rn 14:55 Hesham Bone MD is Attending Physician. rn 14:57 Triage completed. kc6 14:57 Arm band placed on. kc6 14:58 Patient has correct armband on for positive identification. Placed in gown. Bed in low kc6 position. Call light in reach. Side rails up X2. Pulse ox on. NIBP on. Door closed. Noise minimized. Lights dimmed. Warm blanket given. Pillow given. 14:58 Patient maintains SpO2 saturation greater than 95% on room air. kc6 15:00 Report given to LORETTA Vazquez. kc6 15:38 Basic Metabolic Panel Sent. jb4 15:38 CBC with Diff Sent. jb4 15:38 Hepatic Function Sent. jb4 15:38 Magnesium Sent. jb4 15:38 Protime (+inr) Sent. jb4 15:38 Ptt, Activated Sent. jb4 15:38 Troponin High Sensitivity Sent. jb4 15:38 BNP Sent. jb4 16:50 XRAY Knee LEFT 3 view In Process Unspecified. EDMS 16:50 XRAY Knee RIGHT 3 view In Process Unspecified. EDMS 16:50 Chest Single View XRAY In Process Unspecified. EDMS 18:16 Repositioned patient. Cleaned of incontinence. Linen changed. kc6 18:22 Anastacia Mattson MD is Hospitalizing Provider. rn 19:10 Bryson Reece, LORETTA is Primary Nurse. jb4 20:33 No provider procedures requiring assistance completed. Patient admitted, IV remains in jb4 place. Administered Medications: 15:46 Drug: NS 0.9% IV 500 ml 500 ml IV at 1 bolus once; to be given as a bolus over 30 jb4 minutes Volume: 500 ml; Route: IV; Rate: 1 bolus; Site: right antecubital; 16:15 Follow up: Response: No adverse reaction; IV Status: Completed infusion; IV Intake: jb4 500ml Medication: 19:24 VIS not applicable for this client. jb4 Intake: 16:15 IV: 500ml; Total: 500ml. jb4 Outcome: 18:22 Decision to Hospitalize by Provider. rn 20:32 Admitted to Med/surg accompanied by nurse, room 214, with chart, jb4 20:32 Condition: stable 20:32 Discharge instructions given to patient, Instructed on the need for admit, Demonstrated understanding of instructions, 20:33 Patient left the ED. jb4 Signatures: Dispatcher [employer] EDMS Hesham Bone MD MD rn Bryson, James, RN RN jb4 Candy Contreras RN RN kc6 Aicha Mcmillan MD MD gb1 Corrections: (The following items were deleted from the chart) 19:33 19:00 BP 95 / 54; Pulse 67bpm; Resp 16bpm; Pulse Ox 97% RA; jb4 jb4 19:35 19:00 BP 101 / 73; Pulse 67bpm; Resp 16bpm; Pulse Ox 97% RA; jb4 jb4
--- NOTE | 2024-09-20 18:23 | EDPHYS ---
Physician Documentation [facility] Name: Nikkie Ferrera Age: 73 yrs Sex: Female : 1950 Arrival Date: 09/20/2024 Time: 14:44 Bed 20 Private MD: ED Physician Hesham Bone HPI: 09/20 17:06 This 73 yrs old Female presents to ER via EMS with complaints of Fall Injury, Knee Pain.rn 17:06 Details of fall: The patient fell from an upright position. Onset: The symptoms/episode rn began/occurred just prior to arrival. Associated injuries: The patient sustained Bilateral knees. Severity of symptoms: At their worst the symptoms were moderate, in the emergency department the symptoms are unchanged. The patient has not experienced similar symptoms in the past. Patient reports generalized weakness, legs gave out and landed on both knees. Right knee hurts more than left knee. No other injury. Denies any recent fever or chills. No recent vomiting or diarrhea. No medication changes. Reports chronic infections to right lower extremity and due to lymphedema and body habitus she can only change her dressing once weekly. Has not followed up with wound care for the last year. No syncope. No chest pain or shortness of breath.. Historical: - Allergies: 14:57 Codeine; kc6 14:57 Doxycycline; kc6 14:57 Iodinated Contrast Media - IV Dye; kc6 14:57 Lidocaine; kc6 14:57 PENICILLINS; kc6 14:57 Sulfa (Sulfonamide Antibiotics); kc6 14:57 Morphine; kc6 - PMHx: 14:57 DM2; kc6 - Immunization history:: Adult Immunizations up to date. - Infectious Disease History:: Denies. - Social history:: Smoking status: Patient denies any tobacco usage or history of. - Family history:: not pertinent. - Hospitalizations: : No recent hospitalization is reported. ROS: 17:06 Constitutional: Negative for fever, chills, and weight loss, Neck: Negative for injury, rn pain, and swelling, Cardiovascular: Negative for chest pain, palpitations, and edema, Respiratory: Negative for shortness of breath, cough, wheezing, and pleuritic chest pain, Abdomen/GI: Negative for abdominal pain, nausea, vomiting, diarrhea, and constipation, Back: Negative for injury and pain, : Negative for injury, bleeding, discharge, and swelling, MS/Extremity: Positive for bilateral knee pain and injury Skin: Negative for injury Neuro: Positive for generalized weakness and malaise Exam: 17:06 Constitutional: This is a well developed, well nourished patient who is awake, alert, rn and in no acute distress. ENT: Dry mucous membranes Cardiovascular: Regular rate and rhythm. No pulse deficits. Respiratory: No increased work of breathing, no retractions or nasal flaring. Abdomen/GI: Soft, non-tender MS/ Extremity: Pulses equal, no cyanosis. Neurovascular intact. Chronic lymphedema with mild erythema to the right lower extremity. Dressing is adherent to skin with small avulsions upon taking it off. 19:09 ECG was reviewed by the Attending Physician. rn Vital Signs: 14:55 BP 109 / 74; Pulse 69; Resp 19 S; Pulse Ox 100% on R/A; Weight 151.05 kg (R); Height 5 kc6 ft. 8 in. (R); 16:00 BP 117 / 59; Pulse 68; Resp 16; Pulse Ox 95% on R/A; jb4 18:07 BP 114 / 66; Pulse 84; Resp 16; Pulse Ox 99% on R/A; jb4 19:00 BP 101 / 73; Pulse 67; Resp 16; Temp 98.6; Pulse Ox 97% on R/A; jb4 14:55 Body Mass Index 50.63 (151.05 kg, 172.72 cm) 6 MDM: 14:55 Medical Screening Exam initiated rn 18:21 Differential diagnosis: contusion, fracture, sprain, strain, dehydration, weakness. rn Data reviewed: vital signs, nurses notes, lab test result(s), radiologic studies, plain films, and as a result, I will admit patient. Consideration of Admission/Observation Patient was admitted/placed on observation. Escalation of care including admission/observation considered. Counseling: I had a detailed discussion with the patient and/or guardian regarding the historical points, exam findings, and any diagnostic results supporting the discharge/admit diagnosis, lab results, radiology results, the need for further work-up and treatment in the hospital. Response to treatment: the patient's symptoms have mildly improved after treatment, and as a result, I will admit patient. ED course: No acute findings and workup with patient still weak. So weak that she cannot get out of her own excrement here in ER. Discussed case with Dr. Mattson and will admit for further care.. 09/20 15:19 Order name: Basic Metabolic Panel; Complete Time: 17:51 rn 09/20 15:19 Order name: CBC with Diff; Complete Time: 17:51 rn 09/20 15:19 Order name: Hepatic Function; Complete Time: 17:51 rn 09/20 15:19 Order name: Magnesium; Complete Time: 17:51 rn 09/20 15:19 Order name: Protime (+inr); Complete Time: 17:51 rn 09/20 15:19 Order name: Ptt, Activated; Complete Time: 17:51 rn 09/20 15:19 Order name: Troponin High Sensitivity; Complete Time: 17:51 rn 09/20 15:19 Order name: Urinalysis w/ reflexes rn 09/20 15:19 Order name: BNP; Complete Time: 17:51 rn 12 15:09 Order name: XRAY Knee LEFT 3 view; Complete Time: 17:51 rn 09/20 15:09 Order name: XRAY Knee RIGHT 3 view; Complete Time: 17:51 rn 12 15:19 Order name: Chest Single View XRAY; Complete Time: 17:51 rn 09/20 15:19 Order name: EKG; Complete Time: 15:20 rn 09/20 15:19 Order name: Cardiac monitoring; Complete Time: 15:59 rn 12 15:19 Order name: EKG - Nurse/Tech; Complete Time: 15:59 rn 09/20 15:19 Order name: IV Saline Lock; Complete Time: 15:38 rn 09/20 15:19 Order name: Labs collected and sent; Complete Time: 15:38 rn 09/20 15:19 Order name: O2 Per Protocol; Complete Time: 15:37 rn 09/20 15:19 Order name: O2 Sat Monitoring; Complete Time: 15:37 rn EC:09 Rate is 70 beats/min. Rhythm is regular. QRS is positive in lead I and negative in lead rn aVF. QT interval is normal. No Q waves. T waves are Normal. No ST changes noted. Clinical impression: paced rhythm. Interpreted by me. Reviewed by me. Administered Medications: 15:46 Drug: NS 0.9% IV 500 ml 500 ml IV at 1 bolus once; to be given as a bolus over 30 jb4 minutes Volume: 500 ml; Route: IV; Rate: 1 bolus; Site: right antecubital; 16:15 Follow up: Response: No adverse reaction; IV Status: Completed infusion; IV Intake: jb4 500ml Disposition Summary: 09/20/24 18:22 Hospitalization Ordered Notes: Hospitalization Status: Observation rn Provider: Anastacia Mattson rn Location: Telemetry/[facility] (observation) rn Condition: Stable rn Problem: new rn Symptoms: have improved rn Bed/Room Type: Standard rn Room Assignment: 214(09/20/24 18:34) bd Diagnosis - Weakness rn - Contusion of left knee rn - Contusion of right knee rn Forms: - Medication Reconciliation Form rn - SBAR form rn - Leadership Thank You Letter rn Signatures: Dispatcher [employer] Leyda Schultz Roman, MD MD rn Bryson, James RN RN jb4 Candy Contreras, RN RN kc6 Corrections: (The following items were deleted from the chart) 15:42 15:19 NPO ordered. rn rn 18:34 18:22 rn bd
[2024-09-20] MEDS: INSULIN REGULAR (HUMAN) 100 UNIT/ML SQ SCH (21:00)
[2024-09-20] MEDS: NA CHLORIDE 0.9% 1,000 ML IV SCH (21:19)
[2024-09-20] MEDS: ACETAMINOPHEN 500 MG TAB PO PRN (21:37)
[2024-09-20 22:41] VITALS: BMI 50.4
[2024-09-21 03:58] LABS: Specific Gravity 1.013 (1.005-1.030); Sqamous Epithelial <5 /HPF (None Seen); Urine Bacteria <20 /HPF (<20); Urine Bilirubin NEGATIVE (Negative); Urine Blood Negative (Negative); Urine Clarity Extremely Turbid (Clear); Urine Color Yellow (Yellow); Urine Culture Reflex Order REFLEXED; Urine Glucose 4+ (Negative); Urine Ketones NEGATIVE (Negative); Urine Microscopic Reflex YN ORDER UMIC; Urine Mucus Slight /HPF (None Seen); Urine Nitrite NEGATIVE (Negative); Urine Protein 1+ (Negative); Urine Urobilinogen Normal (Normal); Urine WBC >50 /HPF (<5); Urine WBC Clump Rare /HPF (None Seen)
--- NOTE | 2024-09-21 04:37 | HP ---
Date of Admission: 09/20/2024 Chief Complaint: Weakness and fall. History Of Present Illness: This is a 73-year-old female patient, who lives at home by herself, gets around in the house either in her wheelchair or using her walker. Today, she was in the wheelchair and her walker was right in front of her and she wanted to go to the bathroom, so as she got up from her wheelchair to try to grab her walker, all of a sudden she says her knees just gave out and she fe ll down on her knee. She was not able to get up, so she ended up calling ambulance and she was broug ht into ER. Besides her pain in her knee, she denies any other pain anywhere as a result of this fal l today. The patient says that she takes Ozempic once a week as prescribed by her shipping order clerk an d she takes it on every Friday and after she takes Ozempic for 4 to 5 days, she has no bowel movem ent and then she starts taking Senokot and after a day or so of taking Senokot, she ends up having duran wel movement and sometimes she ends up having diarrhea anywhere from 3 to 5 times a day and that is w hat happened today. She has not discussed this constipation issue with her shipping order clerk and she h as appointment next month and I have encouraged her very strongly that she should communicate this wi th her shipping order clerk, but also I have advised her that she should take Senokot on a daily basis and not to wait until 4 to 5 days after the Ozempic injection. She denies any chest pain, shortness of breath. No nausea, vomiting. No abdominal pain. No fever. She has been using Farrow wraps to both lower extremity and that actually has controlled her leg swelling very well, but this dressing was r emoved by me in the emergency room and I thought that she had a very small superficial ulcer on the l ower part of the right leg lateral aspect about 1 cm in size with normal-appearing surrounding area. No discharge. No bleeding noted. Allergies: TO PENICILLIN, LIDOCAINE, SULFA, DOXYCYCLINE, MORPHINE, AND CODEINE. Medications: List reviewed. Review of Systems: Constitutional: As mentioned above. Musculoskeletal: Knee pain. All other systems reviewed and negative. Past Medical History: Significant for chronic diastolic heart failure, type 2 diabetes mellitus whic h is uncontrolled, rheumatoid arthritis, chronic kidney disease stage IIIB, anemia due to chronic kid oleg disease, paroxysmal atrial fibrillation, hypothyroidism, hyperlipidemia, diabetes mellitus with c hronic kidney disease and diabetes mellitus with peripheral vascular disease, thyroid nodule, atheros clerosis of aorta, lymphedema of legs, stress incontinence. Past Surgical History: Significant for cataract surgery, tonsillectomy, jaw surgery, pacemaker place ment in March 2023, cholecystectomy in 2015. Family History: Father , had cancer of bile duct and high cholesterol. Mother , had breast cancer. Social History: Negative for smoking. Use of alcohol, rarely uses alcohol. Physical Examination: Vital Signs: When she came into ER, blood pressure was 109/74, pulse 69, respiratory rate 19, oxygen saturation 100%, height 5 feet 8 inches, weight 151 kg. General: Awake, alert, oriented, not in distress. HEENT: Head atraumatic, normocephalic. Conjunctivae nonerythematous. Sclerae white. Mouth, no thr ush or edema noted. Ears/Nose, no mass, lesion, discharge noted. Neck: Supple. No JVD, lymph nodes, bruit, thyromegaly noted. Lungs: Bilateral good equal air entry. Clear to auscultation. No rhonchi. No rales. Heart: Normal heart sounds, no murmur or gallop. Abdomen: Soft, bowel sounds normal. No guarding, rigidity, tenderness, mass, hepatosplenomegaly, dis tention, or bruit noted. Extremities: Right lower lateral leg has small superficial ulcer approximately 1 cm in size. No katja dence of any bleeding or discharge. Normal-appearing surrounding skin. The patient has extremely dr y skin over both lower extremities. Skin: No rash, ulcer, cellulitis. Lymphatics: No lymph node enlargement in neck, supraclavicular, infraclavicular region. Neuro: No focal neurological deficit. Chest: Unremarkable. External Genitalia: Deferred. Rectal: Deferred. Laboratory Data: WBC 7.5, hemoglobin 13.3, platelets 206. Sodium 137, potassium 5, chloride 106, bi carb 29, BUN 31, creatinine 1.94, estimated GFR 27, glucose 238. Liver function tests unremarkable. Troponin 11.3. ProBNP 403. Chest x-ray, no acute cardiopulmonary changes. Bilateral knee x-ray sh ows moderate degenerative changes. No fracture. Impression: 1.Volume depletion. 2.Acute kidney injury. 3.Chronic kidney disease stage IIIB. 4.Congestive heart failure, chronic, diastolic. 5.Diabetes mellitus, uncontrolled. 6.Diabetes mellitus with chronic kidney disease. 7.Diabetes mellitus with peripheral vascular disease. 8.Rheumatoid arthritis. 9.Anemia due to chronic kidney disease. 10.Paroxysmal atrial fibrillation. 11.Hypothyroidism. 12.Hyperlipidemia. 13.Lymphedema, legs. 14.Right leg wound. Plan: We will go ahead and admit the patient to hospital for further evaluation and management of th is problem. The patient is appropriate for observation. We will go ahead and consult Physical Thera py. Fall precaution was ordered and I will start the patient on IV fluid hydration and repeat blood work tomorrow morning for this volume depletion and acute kidney injury problem. No need for any fur ther intervention. For diabetes, we will manage that with sliding scale insulin and I have advised h er to follow up with her shipping order clerk and discuss with her regarding constipation problem that she is having with her Ozempic use. She was also instructed until that point she should take her Senoko t on a daily basis for her constipation problem. For her hyperlipidemia, she should continue her chalo astatin and no need for further intervention. For her chronic diastolic heart failure, we will monit or her overnight. She does not need any other medication for it at this time and IV fluid was ordere d. We will repeat blood work tomorrow. For her hypothyroidism, we will continue her thyroid medicat ions per order and no need for any further intervention. The patient takes bumetanide 2 mg 2 times a day and I would like for her to lower the dose to 1 mg 2 times a day. For chronic kidney disease, n o need for further intervention. The patient sees her telephone operator chief on outpatient basis and she shoul d continue to do so. We will request social service consultation to make arrangements for home healt h care and home physical therapy. I have requested [facility]. I have also requested consultation from Dr. Back for management of her right leg wound as she has seen him in the past. Total time spent 80 minutes including communication with emergency room physician, review of emergenc y room visit record, review of last office visit record from 09/07/2024, and perform today's evaluati on and management. I will see her tomorrow morning for followup. AUDRA/TANESHA Voice ID: [id number]
[2024-09-21 05:26] LABS: Absolute Lymphocytes (CBC) 1.9 K/uL (0.7-4.9); Absolute Monocytes 0.7 K/uL (0.1-1.3); Absolute Neutrophil 4.3 K/uL (1.8-8.0); Basophils % 0.7 % (0-1.3); Eosinophils % 0.6 % (0-4.4); Hematocrit 35.9 % (36.0-45.0); Hemoglobin 11.9 g/dL (12.0-15.0); Lymphocytes % 26.9 % (15.3-44.8); MCH 30.5 pg (27.0-35.0); MCHC 33.3 g/dL (32.0-36.0); MCV 91.7 fL (80-100); MPV 10.4 fL (7.6-11.3); Monocytes % 9.5 % (3.3-12.3); Neutrophils % 62.3 % (41.7-73.7); Nucleated Red Blood Cells % 0.2 % (0-0); Platelets 197 thou/uL (152-406); RBC Red Blood Cell Count 3.91 M/uL (3.86-4.86); Red Cell Distribution Width 14.6 % (12.1-15.2)
[2024-09-21 05:54] LABS: Anion Gap 6.2 mEq/L (5.0-15.0); Potassium 5.2 mEq/L (3.5-5.1)
[2024-09-21] MEDS: HOME MED 1 EA UNK (Dapagliflozin Propanediol [Farxiga] 10 MG Tablet) PO SCH (09:00)
[2024-09-21] MEDS: GABAPENTIN 300 MG CAP PO SCH (09:10)
[2024-09-21] MEDS: THYROID 30 MG TAB PO SCH (09:10)
[2024-09-21] MEDS: SOD POLYSTYREN SUL 15 GM/60 ML UCUP PO ONE (09:10)
--- NOTE | 2024-09-21 10:52 | P.CNS ---
Date of Consult: 09/21/24 Chief Complaint: right leg venous stasis ulcer History of Present Illness: y/o female with h/o venous stasis disease and bilateral lymphedema on chronic compression therapy with farrow wraps with new venous stasis ulcer right anterior leg. Pt state she has noticed the wrap are " getting big" and not doing the tight compression for the last few weeks Allergies codeine Allergy (Verified 12/03/23 14:38) Itching doxycycline Allergy (Verified 12/03/23 14:38) Nausea/Vomiting lidocaine Allergy (Verified 12/03/23 14:38) Anaphylaxis morphine Allergy (Verified 12/03/23 15:07) Nausea/Vomiting Penicillins Allergy (Verified 12/03/23 14:38) Anaphylaxis Sulfa (Sulfonamide Antibiotics) Allergy (Verified 12/03/23 14:38) Nausea/Vomiting Iodinated Contrast Media [Iodinated Contrast Media - IV Dye] Adverse Reaction (Verified 12/03/23 14:38) Hives/Rash Home Medications: Aspirin Chewable [Aspirin Chewable*] 1 tab PO DIRECTED 12/23/13 Gabapentin [Neurontin*] 300 mg PO BID 12/23/13 Lovastatin [Mevacor*] 20 mg PO BEDTIME 12/23/13 Magnesium Oxide [Mag 0X*] 400 mg PO DAILY 12/23/13 Meclizine HCl [Motion Sickness Relief] 1 tab PO SEECOM PRN 12/23/13 Cholecalciferol (Vitamin D3) [Vitamin D3] 2 cap PO DAILY 07/13/21 Losartan Potassium 25 mg PO BID 07/13/21 Thyroid,Pork [School Psychology Specialist Thyroid] 2.5 tab PO DAILY 07/13/21 Spironolactone 25 mg PO DAILY 07/24/22 Allopurinol 100 mg PO BID 09/20/24 Bumetanide [Bumex*] 2 mg PO BID 09/20/24 Colchicine 0.6 mg PO DAILY 09/20/24 Cranberry 500 mg PO DAILY 09/20/24 Dapagliflozin Propanediol [Farxiga] 10 mg PO DAILY 09/20/24 Metoprolol Succinate [Toprol Xl*] 50 mg PO DAILY 09/20/24 Semaglutide [Ozempic] 0.5 mg SQ SEECOM 09/20/24 Zinc Gluconate [Zinc] 50 mg PO DAILY 09/20/24 - Past Medical/Surgical History Diabetic: Yes -: CHF, sleep apnea -: Afib, DMII -: hypothyroid, -: hyperlipidemia -: lymphedema -: neuropathy -: HTN -: gout -: Jaw reconstruction for TMJ -: Cholecystectomy -: Tonsillectomy Psychosocial/ Personal History: Patient lives at home by herself. She has home health - Social History Smoking Status: Never smoker Alcohol use: No CD- Drugs: No Caffeine use: Yes Place of Residence: Home Review of Systems ENT: Unremarkable Respiratory: Unremarkable Cardiovascular: Unremarkable Gastrointestinal: Unremarkable Musculoskeletal: As per HPI (no homans sign. ) Integumentary: As per HPI Physical Examination Temp Pulse Resp BP Pulse Ox 97.7 F 69 18 110/71 94 09/21/24 10:00 09/21/24 10:00 09/21/24 10:00 09/21/24 10:00 09/21/24 10:00 General: Alert, In no apparent distress, Oriented x3, Cooperative HEENT: Normocephalic, PERRLA Neck: Supple Respiratory: Normal air movement Cardiovascular: No edema Gastrointestinal: Soft and benign, No rebound, No guarding Musculoskeletal: No tenderness Integumentary: No rashes, No erythema, No warmth, No cyanosis, Venous stasis ulcer (Approx 3 cm roght ant leg . No cellulitis) Neurological: Normal speech Laboratory Data (last 24 hrs) 09/20/24 09/20/24 09/20/24 15:43 15:43 15:43 WBC 7.50 Hgb 13.3 Hct 40.7 Plt Count 206 PT 27.1 H INR 2.48 APTT 43.3 H Sodium 137 Potassium 5.0 BUN 31 H Creatinine 1.94 H Glucose 238 H Magnesium 2.1 Total Bilirubin 0.4 AST 27 ALT 34 Alkaline Phosphatase 121 H Conclusions/Impression: Compression therapy . F/u at [facility] with Dr Back on discharge so we can evaluate and address the need for new Farrow wraps Prizma with dry gauze and leave intact until seen at [facility] Weight loss recommended
[2024-09-21] MEDS: RIVAROXABAN 15 MG TABLET PO SCH (16:34)
[2024-09-21] MEDS: ONDANSETRON 4 MG/2 ML VIAL IV PRN (21:53)
--- NOTE | 2024-09-21 23:18 | PN ---
Date of Progress Note: 09/21/2024 Subjective: The patient was seen this morning for followup. She denies any new complaints overnight . Objective: Vital Signs: Reviewed. HEENT: Unremarkable. Lungs: Clear to auscultation. Heart: Sounds normal. Abdomen: Soft. Bowel sounds normal. No guarding, rigidity, tenderness, distention. Extremities: No leg edema. Laboratory Data: White count 6.9, hemoglobin 11.9, platelets 197. Sodium 140, potassium 5.2, chlori de 111, bicarb 28, BUN 33, creatinine 1.79, glucose 113. Impression: 1.Acute kidney injury. 2.Volume depletion. 3.Diabetes mellitus with chronic kidney disease. 4.Hypertension. 5.Chronic diastolic heart failure. 6.Chronic kidney disease, stage 3B. Plan: We will go ahead and continue IV fluid. Physical Therapy to continue to work with the patient . The patient was not strong enough to go home today and she lives by herself at home and her safety is a concern, so we will see how she is by tomorrow. If she is not able to go home tomorrow, we zach l have to request and recommend her to go to half-way facility for rehab therapy. For hyperka lemia, Kayexalate 30 g p.o. x1 dose was ordered. We will repeat blood work tomorrow morning and I wi ll see her tomorrow. Dr. Back was requested to see her for right leg wound. Social Service was consulted to assist with discharge plan ning. ZHU/TANESHA Voice ID: [id number] Report ID: [id number]
[2024-09-22 07:40] LABS: Absolute Basophils 0.1 K/uL (0-0.5); Absolute Lymphocytes (CBC) 1.8 K/uL (0.7-4.9); Absolute Monocytes 0.6 K/uL (0.1-1.3); Absolute Neutrophil 4.3 K/uL (1.8-8.0); Basophils % 0.9 % (0-1.3); Eosinophils % 0.5 % (0-4.4); Hematocrit 37.7 % (36.0-45.0); Hemoglobin 12.3 g/dL (12.0-15.0); Lymphocytes % 26.3 % (15.3-44.8); MCH 30.1 pg (27.0-35.0); MCHC 32.5 g/dL (32.0-36.0); MCV 92.3 fL (80-100); MPV 10.7 fL (7.6-11.3); Monocytes % 8.2 % (3.3-12.3); Neutrophils % 64.1 % (41.7-73.7); Platelets 200 thou/uL (152-406); RBC Red Blood Cell Count 4.08 M/uL (3.86-4.86); Red Cell Distribution Width 14.8 % (12.1-15.2)
[2024-09-22 08:00] LABS: Anion Gap 8.2 mEq/L (5.0-15.0); Potassium 4.2 mEq/L (3.5-5.1)
--- NOTE | 2024-09-22 13:35 | RAD REPORT ---
EXAMINATION: US BILATERAL LOWER EXTREMITY VENOUS DOPPLER CLINICAL INDICATION: r/o dvt, lymphadema TECHNIQUE: Complete bilateral duplex sonography of the BILATERAL lower extremity veins was performed. The examination included compression for vein patency, color Doppler imaging and flow augmentation in response to distal compression of the distal external iliac, common femoral, femoral, popliteal, t ibial, and great and small saphenous veins. COMPARISON: No prior exam. FINDINGS: Duplex sonography testing of the veins of the BILATERAL lower extremity was performed. Color flow maia ging shows all veins to be compressible with [id number] color filling. Pulsatile and phasic flow is present within all lower extremity deep and superficial veins examined. IMPRESSION: There is no deep vein or superficial vein thrombosis.
--- NOTE | 2024-09-22 20:22 | PN ---
Date of Progress Note: 09/22/2024 Subjective: The patient was seen this morning for followup. She was lying in bed, not in any distre ss. Denies any new complaints. She has significant generalized weakness since her fall and yesterda y she had trouble ambulating. Continues to have knee pain, which is worse than what it was when she came in. Objective: Vital Signs: Reviewed. HEENT: Unremarkable. Lungs: Clear to auscultation. Heart: Sounds normal. Abdomen: Soft. Bowel sounds normal. No guarding, rigidity, tenderness, distention. Extremities: No leg edema. Laboratory Data: CBC and basic metabolic panel were done after I saw her today and results reviewed. Creatinine has improved to 1.6 today; yesterday, it was 1.7. CBC is unremarkable. Impression: 1.Acute kidney injury. 2.Volume depletion. 3.Chronic kidney disease, stage 3B. 4.Type 2 diabetes mellitus. 5.Hypertension. Plan: We will go ahead and continue current diabetes management. Continue pain medication per order . Physical Therapy to continue to work with her. We will discontinue IV fluid, and continue Xarelto that she takes 15 mg daily per order. Social Service was consulted for discharge planning, and we d id talk about possibility of going to inpatient rehab on fifth floor versus going to senior care facility, and the patient would like to see if she can go to inpatient rehab. Social Service was consulted to assist with this discharge planning. We will see her tomorro w for followup. AUDRA/MODL Voice ID: [id number] Report ID: [id number]
[2024-09-23 08:25] VITALS: BP 141/62; TEMP 97.5
[2024-09-23 08:49] VITALS: O2SAT 95
--- NOTE | 2024-09-24 04:01 | DS ---
Date of Discharge: 09/23/2024 Disposition: Discharged to go to inpatient rehab. Physical Examination: HEENT: Unremarkable. Lungs: Clear to auscultation. Heart: Sounds normal. Abdomen: Soft. Bowel sounds normal. No guarding, rigidity, tenderness, distention. Extremities: No leg edema. Laboratory Data: Venous Doppler of both lower extremities done yesterday was negative for DVT. Upon admission, white count 7.5, hemoglobin 13.3, platelets 206. Yesterday, white count 6.8, hemoglobin 12.3, platelets 200. Her chemistry yesterday, sodium 141, potassium 4.2, chloride 111, bicarb 26, BU N 24, creatinine 1.26, glucose 113. Upon admission, sodium 137, potassium 5, chloride 106, bicarb 29 , BUN 31, creatinine 1.94, glucose 238. Liver function tests unremarkable. Troponin 11.3. ProBNP 4 03. Potassium was 5.2 on 09/21/2024, for which she received 1 dose of Kayexalate. Discharge Medications And Instructions: Continue all current medications and see copy of transfer EDDIE Lucero for details. Hospital Course: This is a 73-year-old pleasant female patient, who lives at home, came into emergen cy room with weakness and fall. Please see dictated H and P for more information. The patient came into ER and after she was evaluated, she was admitted to the hospital. Her chest x-ray was unremarka ble. Bilateral knee x-ray was negative for fracture, but did show at least moderate osteoarthritis c hanges in both knees. The patient was admitted with volume depletion and acute kidney injury. IV fl uid was given and Physical Therapy was consulted. The patient has significant debility and generaliz ed weakness and it is not safe for her to go back home yet because she has not achieved her previous level of functioning and with that, after she worked with physical therapy, she realized that she nee ds more help before she can go home and she expressed desire to go to inpatient rehab if possible, so Social Service was consulted and after the patient was evaluated, she was accepted to go to [facility] and today she was discharged to go to inpatient rehab floor in stable medical condition and I will continue to see her on the rehab floor. Dr. Back from General Surgery was consulted for he r right leg wound. Final Diagnoses: 1.Volume depletion. 2.Acute kidney injury. 3.Hyperkalemia. 4.Chronic kidney disease stage IIIB. 5.Congestive heart failure, chronic, diastolic. 6.Diabetes mellitus, uncontrolled. 7.Diabetes mellitus with peripheral vascular disease. 8.Diabetes mellitus with chronic kidney disease. 9.Rheumatoid arthritis. 10.Anemia due to chronic kidney disease. 11.Paroxysmal atrial fibrillation. 12.Hypothyroidism. 13.Hyperlipidemia. 14.Lymphedema, legs. 15.Right leg wound. Total time spent today 40 minutes. AUDRA/MODL Voice ID: [id number] Report ID: [id number]
--- NOTE | 2024-09-24 16:01 | EKG ---
Test Date: 2024-09-20 Test Time: 15:55:32 Nursing Home Admissions Director: LUCÍA MEASUREMENT RESULTS: Intervals: Rate: 70 DC: 302 QRSD: 120 QT: 432 QTc: 466 [place]: P: DC: 302 QRS: -51 T: 75 INTERPRETIVE STATEMENTS: Atrial-paced rhythm with prolonged AV conduction Left anterior fascicular block Left ventricular hypertrophy with QRS widening Cannot rule out Septal infarct, age undetermined Abnormal ECG Compared to ECG 07/23/2022 16:58:00 Left anterior fascicular block now present Early repolarization no longer present Myocardial infarct finding still present Electronically Signed On 09-24-24 15:53:45 CHEMISTRY LECTURER by Asael Marques
== END 2024-09-23 10:12 | DRG 683 ==
LOC: ER 14:44 → ERHOLD 18:25 → 2ND 20:02 → OBSVTOIN 09-22 14:31
PROVIDERS: ADMIT Internal Medicine; ATTEND Internal Medicine
DX: N17.9 Acute kidney failure, unspecified (principal); I13.0 Hypertensive heart and chronic kidney disease with heart failure and stage 1 through stage 4 chronic kidney disease, or unspecified chronic kidney disease; I50.32 Chronic diastolic (congestive) heart failure; L97.811 Non-pressure chronic ulcer of other part of right lower leg limited to breakdown of skin; R53.81 Other malaise; R53.1 Weakness; M19.90 Unspecified osteoarthritis, unspecified site; E86.9 Volume depletion, unspecified; E87.5 Hyperkalemia; E11.22 Type 2 diabetes mellitus with diabetic chronic kidney disease; E11.65 Type 2 diabetes mellitus with hyperglycemia; N18.32 Chronic kidney disease, stage 3b; Z79.4 Long term (current) use of insulin; E11.51 Type 2 diabetes mellitus with diabetic peripheral angiopathy without gangrene; M06.9 Rheumatoid arthritis, unspecified; D63.1 Anemia in chronic kidney disease; I48.0 Paroxysmal atrial fibrillation; Z79.01 Long term (current) use of anticoagulants; E03.9 Hypothyroidism, unspecified; E78.5 Hyperlipidemia, unspecified; I89.0 Lymphedema, not elsewhere classified; S80.02XA Contusion of left knee, initial encounter; S80.01XA Contusion of right knee, initial encounter; W18.30XA Fall on same level, unspecified, initial encounter; Z88.5 Allergy status to narcotic agent; Z88.0 Allergy status to penicillin; Z88.2 Allergy status to sulfonamides; Z91.041 Radiographic dye allergy status; Z95.0 Presence of cardiac pacemaker; Z90.49 Acquired absence of other specified parts of digestive tract; I83.018 Varicose veins of right lower extremity with ulcer other part of lower leg
CPT/HCPCS: 36415; 71045; 80048; 80076; 81001; 82947; 83735; 83880; 84484; 85025; 85610; 85730; 87077; 87086; 87088; 87186; 93005; 93970; 97110; 97116; 97161; 97530; 99285; G0378; J2405; J7030; J7040

== ENCOUNTER 2024-09-23 10:20 | Inpatient (IN) | payer OTHER ==
[2024-09-23] MEDS ORDERED: ONDANSETRON 4 MG/2 ML VIAL IV PRN (11:27)
[2024-09-23] MEDS: INSULIN REGULAR (HUMAN) 100 UNIT/ML SQ SCH (11:30)
[2024-09-23 15:57] LABS: Specific Gravity 1.023 (1.005-1.030); Transitional Epithelial <5 /HPF (None Seen); Urine Bacteria >50 /HPF (<20); Urine Bilirubin NEGATIVE (Negative); Urine Blood Trace (Negative); Urine Clarity Extremely Turbid (Clear); Urine Color Yellow (Yellow); Urine Culture Reflex Order REFLEXED; Urine Glucose 3+ (Negative); Urine Ketones TRACE (Negative); Urine Micro Reflex YN NO BILL MICROSCOPIC; Urine Mucus 1+ /HPF (None Seen); Urine Nitrite NEGATIVE (Negative); Urine Protein 1+ (Negative); Urine Urobilinogen Normal (Normal); Urine WBC >50 /HPF (<5)
[2024-09-23] MEDS: RIVAROXABAN 15 MG TABLET PO SCH (17:22)
[2024-09-23] MEDS ORDERED: GABAPENTIN 300 MG CAP PO SCH (20:00)
[2024-09-23] MEDS: HYDROXYCHLOROQUINE 200 MG PO SCH (20:00)
[2024-09-23] MEDS: BUMETANIDE 1 MG TABLET PO SCH (20:43)
[2024-09-23] MEDS: allopurinoL 100 MG TAB PO SCH (20:43)
[2024-09-23] MEDS: MECLIZINE HCL 12.5 MG TAB PO PRN (20:43)
[2024-09-23] MEDS: GABAPENTIN 300 MG CAP PO SCH (20:44)
[2024-09-23] MEDS: ATORVASTATIN 20 MG TAB PO SCH (20:44)
[2024-09-23] MEDS: ACETAMINOPHEN 500 MG TAB PO PRN (20:44)
[2024-09-23] MEDS: LOSARTAN POTASSIUM 50 MG TABLET PO SCH (20:44)
[2024-09-23] MEDS: NEPRO SHAKE 237 ML CAN PO SCH (20:47)
--- NOTE | 2024-09-24 05:01 | HP ---
Date of Admission: 09/23/2024 Time Of Service: 1:10 p.m. Chief Complaint: "I fell and hit my knees, and they are hurting. I need to get stronger." History Of Present Illness: Ms. Ferrera is a 73-year-old patient with multiple medical problems, incl uding hypertension, acute on chronic renal insufficiency, who presented to the emergency department a fter a fall at home. She fell forward hitting both knees. She says she is 300 pounds and hit her kn ees hard and had significant pain. She was evaluated and found to be in volume depletion, acute on c hronic renal insufficiency, diabetes mellitus, hypertension, which are comorbid conditions, also iden tified and addressed. She received IV fluids, pain management, put on proton pump inhibitors and had DVT prophylaxis addressed. She did have some ongoing weakness, some poor endurance, and had elevate d chloride, of course dehydration with elevated creatinine and requiring control of her blood pressur e as well. When she fell, of course she was at home. She lives alone and was independent, and was a ble to walk up to about 325 feet with independence, do her own activities of daily living. Since the fall, she now requires minimal assistance for bed mobilization, moderate assistance for sit to stand , and ambulates only about 85 feet with minimum assistance using a rolling walker. She is currently functioning well below her baseline. She was referred for inpatient rehabilitation to help her retur n to her prior level of functioning and reduce the risk of re-hospitalization. Rehabilitation is nec essary in the inpatient rehabilitation unit, and she is likely to not thrive if she is to be discharg ed home and not likely to recover as well if she goes to a prison facility. Past Medical History: Chronic diastolic congestive heart failure; diabetes mellitus, is uncontrolled ; rheumatoid arthritis; stage 3B kidney disease, acute on chronic disease; anemia; paroxysmal atrial fibrillation; hypothyroidism; dyslipidemia; peripheral vascular disease; she has a thyroid nodule; ar throsclerosis of the aorta; lymphedema of the legs; and stress incontinence. Imaging Studies: Knee x-ray, done on 09/20/2024, shows no evidence of acute osseous abnormality. Ch est x-ray on 09/20/2024, central interstitial prominence noted, may relate to mild central congestive CHF. Lower extremity venous Doppler on 09/22/2024. There is no evidence of deep vein or superficia l vein thrombosis. Allergies: CODEINE, DOXYCYCLINE, LIDOCAINE, MORPHINE, PENICILLIN, SULFA DRUGS, AND IODINATED CONTRAS T. Medications: Tylenol 500 mg every 6 hours as needed, allopurinol 100 mg twice daily, aspirin 81 mg d aily, Lipitor 20 mg at bedtime, Bumex 2 mg twice daily, vitamin D 1000 units daily, colchicine 0.6 mg daily, Nepro shake 237 mL twice daily, gabapentin 600 mg twice daily, Novolin insulin sliding scale mild, Cozaar 25 mg twice daily, magnesium oxide 400 mg daily, Antivert 25 mg 3 times daily, melatonin 3 mg at bedtime, Toprol-XL 50 mg daily, Zofran 4 mg every 6 hours as needed, Xarelto 15 mg daily, Al dactone 25 mg daily, Lincoln Thyroid 60 mg daily, zinc sulfate 220 mg daily. Laboratory Studies: White blood cell count 6.8, hemoglobin 12.3, hematocrit 37.7, platelets 200. IN R 2.48. Sodium 141, potassium 4.2, chloride 111, carbon dioxide 26, BUN 24, creatinine 1.26, glucose ranged from 107 to 182. Calcium 8.7, magnesium 2.1. AST 27, ALT 34, alkaline phosphatase 121. Alb umin 3.0. Urinalysis shows extreme turbidity, 3+ glucose, trace ketones, trace blood, 500 esterase, 5 to 10 red blood cells, white blood cells greater than 50, greater than 50 bacteria, hyaline casts 5 to 10, total urine protein is 1+. Note, on September 21, prior to her admitting to the inpatient r ehabilitation, she had urinary culture showing E coli, greater than 100,000 colony-forming units with sensitivity panel to nitrofurantoin, Augmentin, Rocephin, piperacillin/tazobactam, cefepime, and michael openem. Gram negative rods, Escherichia coli. Family History: Noncontributory. Social History: No alcohol, tobacco, or IV drug use. The patient lives alone in a single family tegan e. Review of Systems: As noted, bilateral knee pain after falling, diffuse weakness, some myalgias and arthralgias. No anna h. No active psychiatric issues. No headache. No other significant positives on her review of syst ems. Current Level Of Functioning: For eating, setup assistance. Grooming, setup assistance. Bathing, mo derate assistance. Upper and lower body dressing along with donning and doffing of footwear, all mod erate assistance. Transferring from a wheelchair to a toilet, moderate assistance. Ambulation, 85 f eet with moderate assistance. Physical Examination: Vital Signs: Blood pressure 166/72, pulse 81, respiratory rate 20, temperature 97.8, oxygen saturati on 95%. Weight is 333 pounds, height 5 feet 8 inches, BMI is 50.6. General: She is sitting in a chair beside the bed. HEENT: She is normocephalic, atraumatic. Sclerae anicteric. Oropharynx pink and moist. Neck: Supple. Chest: Clear. Extremities: She has some mild trace edema in the lower extremities, and no significant swelling not ed in the knees. Constitutional: She is extremely obese with BMI of 50.6. Neurologic: Cranial nerves showed no focal deficits. On motor exam, she has diffuse, but mild weakn ess, upper and lower extremities. Mild stocking glove loss, light touch, temperature. Rehab And Medical Assessment And Plan: Ms. Ferrera is a 73-year-old patient, admitted to the rehabili tation unit with impairment category 20, miscellaneous. Her impairment group code is 16, debility. Her etiologic diagnosis: Acute on chronic renal injury. Her comorbid conditions include decreased m obility, decreased physical functioning, hypertension, diabetes mellitus type 2, stage 3B kidney dise ase, acute on chronic renal insufficiency with volume depletion, uncontrolled diabetes mellitus. Plan: 1.She will have physical and occupational therapy 3 hours a day, 5 of 7 days. 2.Allopurinol used for gout, which is an additional diagnosis. She has Tylenol for pain, aspirin fo r stroke risk reduction, Lipitor for dyslipidemia. The colchicine added also for her gout. Nepro sh leonel for malnutrition. Gabapentin for her neuropathic pain has been adjusted to 600 mg twice daily. She has insulin sliding scale for diabetes mellitus, Cozaar for heart rate and blood pressure control , meclizine for nausea, melatonin for insomnia, Toprol-XL for heart rate control, Zofran also there f or her nausea, Xarelto 15 mg daily for fibrillation and reducing risk of stroke, Lincoln Thyroid for h ypothyroidism, Aldactone for fluid management, zinc sulfate for her immune system enhance functioning . Comorbidities That Are Impacting Rehabilitation: As noted, she is extremely obese with BMI of 50, pl acing her at high risk of falling and injury, which has already occurred while she is in the hospital . Fall precautions to be adhered to at all times, gait belt with the chair and tows. The patient is mobilizing with rolling walker at all times. She has high risk of bleeding at noncompressible sites given the Xarelto, and again that will be carefully addressed as she is transferring and mobilizing, and KUB will be done. CT scan of the head will be done as needed. She is followed by Dr. Mattson, her primary care physician, who is going to assist with management of the comorbid conditions which are listed. Rehab Specific Plan: Ms. Ferrera will have physical and occupational therapy 3 hours a day, 5 of 7 da ys to improve her ability to transfer from bed to chair to the walker, to a toilet or shower to perfo rm toileting and showering, to be able to ambulate 250 feet with independence using a rolling walker, mobilized wheelchair 250 feet with independence, to go up and down 10 steps with bilateral handrails with independence as well. Ms. Ferrera has a good understanding of the process of admission to the inpatient rehabilitation [facility] it, how she will benefit from physical, occupational, and speech therapy. She will have 24 hours a day, 7 days a week skilled rehabilitation nursing; daily physician evaluation and management; and Soc ia Services evaluation and management for discharge planning, home equipment, and followup along wit h continued therapy. If need be, additional help will be sought, although she has already seen again by her primary care physician, Dr. Mattson. Barriers To Discharge: She is, as noted, significantly obese and may have some difficulty being able to go back home and be independent and therefore she may have to be considered for prison d epending on how well she progresses during the therapy. She is at risk of course of bleeding, risk o f DVTs, but those have been adequately addressed. Length Of Stay: About 12 to 14 days. Disposition: Back home with Home Health and followup with her primary care physician. Prognosis: Good. Code Status: Full Code. Rehab Specific Goals: 1.Become independent with upper and lower body dressing, and donning and doffing footwear. 2.Independently mobilize 250 feet with a rolling walker. 3.Independently go up and down 10 steps with bilateral handrails. 4.Independently perform all activities of daily living. 5.Independently perform cognitive functioning. The above goals were reviewed with Ms. Ferrera, and she is in agreement. By signing this document, I acknowledge I personally performed a full physical examination on Ms. Danyelle march no later than 24 hours after her admission to the inpatient rehabilitation facility and determine d that she is able to tolerate the above course of treatment at an intensive level for a reasonable p eriod of time. A detailed individualized plan of care for her will be completed by hospital day 4 ba sed on the preadmission screen, history and physical, and therapy evaluations. LONA Voice ID: [id number]
[2024-09-24] MEDS: THYROID 30 MG TAB PO SCH (05:18)
[2024-09-24] MEDS: METOPROLOL XL 50 MG TAB PO SCH (05:18)
[2024-09-24 05:49] LABS: Absolute Eosinophils 0.1 K/uL (0-0.5); Absolute Lymphocytes (CBC) 1.3 K/uL (0.7-4.9); Absolute Monocytes 0.6 K/uL (0.1-1.3); Absolute Neutrophil 4.9 K/uL (1.8-8.0); Basophils % 0.7 % (0-1.3); Eosinophils % 0.7 % (0-4.4); Hematocrit 37.6 % (36.0-45.0); Hemoglobin 12.2 g/dL (12.0-15.0); MCH 29.8 pg (27.0-35.0); MCHC 32.4 g/dL (32.0-36.0); MCV 92.1 fL (80-100); MPV 10.9 fL (7.6-11.3); Monocytes % 8.6 % (3.3-12.3); Nucleated Red Blood Cells % 0.1 % (0-0); Platelets 173 thou/uL (152-406); RBC Red Blood Cell Count 4.08 M/uL (3.86-4.86); Red Cell Distribution Width 14.8 % (12.1-15.2)
[2024-09-24 06:09] LABS: Albumin 2.7 g/dL (3.4-5.0); Anion Gap 8.8 mEq/L (5.0-15.0); Magnesium 1.9 mg/dL (1.6-2.4); Potassium 4.8 mEq/L (3.5-5.1); Prealbumin 16.1 mg/dL (20-40)
[2024-09-24] MEDS ORDERED: THYROID PORK PO SCH (08:00)
[2024-09-24] MEDS: FARXIGA 10 MG PO SCH (08:00)
[2024-09-24] MEDS: DOCUSATE NA/SENNA CONC 1 TAB PO SCH (08:00)
[2024-09-24] MEDS: ASPIRIN 81 MG CHEWABLE TABLET PO SCH (08:15)
[2024-09-24] MEDS: ZINC SULFATE 220 MG CAP PO SCH (08:16)
[2024-09-24] MEDS: COLCHICINE 0.6 MG TAB PO SCH (08:16)
[2024-09-24] MEDS: CRANBERRY FRUIT EXTRACT 425 MG CAPSULE PO SCH (08:17)
[2024-09-24] MEDS: SPIRONOLACTONE 25 MG TABLET PO SCH (08:18)
[2024-09-24] MEDS: MAGNESIUM OXIDE 400 MG TAB PO SCH (08:27)
[2024-09-24] MEDS: VITAMIN D 1000 UNIT TAB PO SCH (08:27)
[2024-09-24] MEDS ORDERED: LIDOCAINE 4% PATCH TOP SCH (12:00)
[2024-09-24] MEDS: levoFLOXacin 500 MG TAB PO ONE (12:09)
--- NOTE | 2024-09-24 13:49 | P.RH.PN ---
Estimated Length of Stay: 16 Expected Discharge Date: 10/01/24 Discharge Disposition Plan: Home Family Support: Yes Group Home Goal: Mobility, Transfers, Self Care Vital Signs: Last Vital Signs Temp 97.4 F 09/24/24 08:00 Pulse 66 09/24/24 08:18 Resp 18 09/24/24 08:00 BP 121/59 L 09/24/24 08:18 Pulse Ox 95 09/24/24 08:00 Laboratory: Laboratory Last Values WBC 6.80 thou/uL (4.3-10.9) 09/24/24 05:30 RBC 4.08 M/uL (3.86-4.86) 09/24/24 05:30 Hgb 12.2 g/dL (12.0-15.0) 09/24/24 05:30 Hct 37.6 % (36.0-45.0) 09/24/24 05:30 MCV 92.1 fL (80-100) 09/24/24 05:30 MCH 29.8 pg (27.0-35.0) 09/24/24 05:30 MCHC 32.4 g/dL (32.0-36.0) 09/24/24 05:30 RDW 14.8 % (12.1-15.2) 09/24/24 05:30 Plt Count 173 thou/uL (152-406) 09/24/24 05:30 MPV 10.9 fL (7.6-11.3) 09/24/24 05:30 Neutrophils % 71.0 % (41.7-73.7) 09/24/24 05:30 Lymphocytes % 19.0 % (15.3-44.8) 09/24/24 05:30 Monocytes % 8.6 % (3.3-12.3) 09/24/24 05:30 Eosinophils % 0.7 % (0-4.4) 09/24/24 05:30 Basophils % 0.7 % (0-1.3) 09/24/24 05:30 Absolute Neutrophils 4.9 K/uL (1.8-8.0) 09/24/24 05:30 Absolute Lymphocytes 1.3 K/uL (0.7-4.9) 09/24/24 05:30 Absolute Monocytes 0.6 K/uL (0.1-1.3) 09/24/24 05:30 Absolute Eosinophils 0.1 K/uL (0-0.5) 09/24/24 05:30 Absolute Basophils 0.0 K/uL (0-0.5) 09/24/24 05:30 Sodium 140 mEq/L (136-145) 09/24/24 05:30 Potassium 4.8 mEq/L (3.5-5.1) 09/24/24 05:30 Chloride 110 mEq/L (98-107) H 09/24/24 05:30 Carbon Dioxide 26 mEq/L (21-32) 09/24/24 05:30 Anion Gap 8.8 mEq/L (5.0-15.0) 09/24/24 05:30 BUN 25 mg/dL (7-18) H 09/24/24 05:30 Creatinine 1.24 mg/dL (0.55-1.02) H 09/24/24 05:30 Est GFR (CKD-EPI) 46 ml/min (=/>90) L 09/24/24 05:30 Glucose 159 mg/dL (74-106) H 09/24/24 05:30 POC Glucose 138 mg/dL (65-120) H 09/24/24 11:14 Calcium 9.3 mg/dL (8.5-10.1) 09/24/24 05:30 Magnesium 1.9 mg/dL (1.6-2.4) 09/24/24 05:30 Albumin 2.7 g/dL (3.4-5.0) L 09/24/24 05:30 Prealbumin 16.1 mg/dL (20-40) L 09/24/24 05:30 Urine Color Yellow (Yellow) 09/23/24 14:52 Urine Clarity Extremely turbid (Clear) H 09/23/24 14:52 Urine pH 5.0 (5.0-7.0) 09/23/24 14:52 Ur Specific Trevor 1.023 (1.005-1.030) 09/23/24 14:52 Glucose (UA)(Auto) 3+ (Negative) H 09/23/24 14:52 Urine Ketones Trace (Negative) H 09/23/24 14:52 Urine Blood Trace (Negative) H 09/23/24 14:52 Urine Nitrite Negative (Negative) 09/23/24 14:52 Urine Bilirubin Negative (Negative) 09/23/24 14:52 Urine Urobilinogen Normal (Normal) 09/23/24 14:52 Ur Leukocyte Esterase 500 Ghada/uL (Negative) H 09/23/24 14:52 Urine RBC 5-10 /HPF (None Seen) H 09/23/24 14:52 Urine WBC >50 /HPF (<5) H 09/23/24 14:52 Ur Squamous Epith Cells 10-20 /HPF (None Seen) 09/23/24 14:52 Ur Transition Epith Cell <5 /HPF (None Seen) 09/23/24 14:52 Urine Bacteria >50 /HPF (<20) H 09/23/24 14:52 Hyaline Casts 5-10 /LPF (None Seen) H 09/23/24 14:52 Urine Mucus 1+ /HPF (None Seen) 09/23/24 14:52 Urine Culture Reflexed Reflexed 09/23/24 14:52 Urine Total Protein 1+ (Negative) H 09/23/24 14:52 Weight: 333 lb Closed Surgical Incision Present: No Negative Pressure Wound Therapy Present: No Physician Update: Labs reviewed and are stable. Min assist with PT. Walked 280' with RW and SBA. Doing well with OT but poor toilet transfers. Improved lower body dressing. Comment: bilast lymphedema . has chronic wnd to rt . [facility] consult made.. Summary: Patient's care plan and [facility] goals have been reviewed and revised as necessary. Please see the Rehabilitation Signature page for all necessary signatures.
--- NOTE | 2024-09-24 15:39 | PN ---
Date of Progress Note: 09/24/2024 Subjective: The patient was seen this morning for followup. No new complaints or problems reported by patient. She was on the rehab floor. I observed her coming back to her bed from the bathroom and she is doing better than how she was when she first came into the hospital. Objective: Vital Signs: Reviewed. HEENT: Unremarkable. Lungs: Clear to auscultation. Heart: Normal heart sounds. Abdomen: Soft, bowel sounds normal. No guarding, rigidity, tenderness, distention. Extremities: No leg edema. Laboratory Data: White count 6.8, hemoglobin 12.2, platelets 173. Sodium 140, potassium 4.8, chlori de 110, bicarb 26, BUN 25, creatinine 1.24, glucose 159, magnesium 1.9. Albumin 2.7. Urinalysis is abnormal showing leukocyte esterase 500, rbc's 5-10, wbc's more than 50, bacteria more than 50. Impression: 1.Urinary tract infection. 2.Type 2 diabetes mellitus. 3.Hypertension. 4.Chronic diastolic heart failure. 5.Generalized weakness. 6.Debility. 7.Osteoarthritis, multiple sites. 8.Chronic kidney disease, stage 3B. Plan: We will go ahead and start the patient on antibiotic Levaquin for urinary tract infection 500 mg daily, starting today. Urine culture was sent, result is pending. We will follow up on it and th en decide about culture specific antibiotic once result is available. Continue to provide physical t herapy under guidance of Dr. Grant. The patient takes her Ozempic 0.5 mg dose once a week and her dose was due on this past Friday, which is day before yesterday and because she was in the hospit al, she could not take it. So I have requested her that if somebody can bring it from home today or tomorrow, she can go ahead and get her Ozempic dose while in the hospital. Farxiga is not available in the hospital formulary and will have to wait until she gets out of the hospital for her to start t aking it again. I have discontinued her losartan, spironolactone, and reduced dose of Bumex from 2 m g twice a day to 1 mg daily as the patient came into the hospital with acute kidney injury, volume de pletion, and low blood pressure and for that reason, we will have to make adjustment on medication as I have discussed with her today and before. Continue Xarelto and she also takes aspirin 81 mg daily and we will continue that as well. I will see her tomorrow for followup. AUDRA/MODL Voice ID: [id number] Report ID: [id number]
[2024-09-24] MEDS: AMINO ACIDS/PROTEIN HYDROLYS 30 ML LIQUID.PKT PO SCH (19:56)
[2024-09-25] MEDS: levoFLOXacin 500 MG TAB PO SCH (08:33)
--- NOTE | 2024-09-25 08:49 | PN ---
Date of Progress Note: 09/25/2024 Subjective: The patient was seen this morning for followup. No new complaints or problems reported by her. She did have large bowel movement yesterday and denies any abdominal pain, nausea, vomiting. No other complaints reported. Objective: Vital Signs: Reviewed. HEENT: Unremarkable. Lungs: Clear to auscultation. Heart: Sounds normal. Abdomen: Soft. Bowel sounds normal. No guarding, rigidity, tenderness, distention. Extremities: No leg edema. Impression: 1.Urinary tract infection. 2.Hypertension. 3.Type 2 diabetes mellitus. 4.Generalized weakness. 5.Debility. Plan: We will go ahead and continue current diabetes management with sliding scale insulin. The katja wilson will probably get her Ozempic dose today once her family is able to bring her home supply. We w ill continue Xarelto. Continue physical therapy under guidance of Dr. Grant. Continue Levaquin f or her urinary tract infection and urine culture result is pending. I will see her tomorrow for ventura rios. AUDRA/MODL Voice ID: [id number] Report ID: [id number]
[2024-09-25] MEDS: BUMETANIDE 1 MG TABLET PO SCH (10:39)
[2024-09-25] MEDS: OZEMPIC 0.5 MG SQ SCH (15:15)
--- NOTE | 2024-09-26 16:58 | PN ---
Date of Progress Note: 09/26/2024 Subjective: Patient was seen this morning for followup. No new complaints or problems reported by butch franco. She was lying in bed, not in any distress. No new complaints reported. Denies any dysuria or hematuria. No abdominal pain, nausea, or vomiting. Objective: Vital Signs: Reviewed. HEENT: Unremarkable. Lungs: Clear to auscultation. Heart: Sounds normal. Abdomen: Soft. Bowel sounds normal. No guarding, rigidity, tenderness, or distention. Extremities: No leg edema. Laboratory Data: Urine culture came back growing E coli and it is sensitive to meropenem, nitrofuran toin, Zosyn, ceftriaxone, Augmentin. It is resistant to Levaquin and patient is currently on Levaqui n. The patient is also allergic to penicillin and her reaction to penicillin was anaphylaxis, so we will not be able to use penicillin and we will avoid cephalosporin type of groups. Plan: So option we have for antibiotic is either IV meropenem or oral nitrofurantoin and we will def initely try oral nitrofurantoin for her urinary tract infection and I have communicated with her abou t this result and plan of treatment. Continue physical therapy under guidance of Dr. Grant and we will see her tomorrow for followup. AUDRA/MODL Voice ID: [id number] Report ID: [id number]
[2024-09-26] MEDS: NITROFURAN MACRO 100 MG CAP PO SCH (19:47)
--- NOTE | 2024-09-28 01:56 | PN ---
Date of Progress Note: 09/27/2024 Time Of Service: 1:10 p.m. Subjective: Ms. Ferrera is resting in a chair in the room. She is feeling better about her therapy t eliza. She says the knees are not hurting as much and she is able to do more of the therapy that she is requested to do. Objective: No significant fevers, chills, nausea, vomiting. Some myalgias, arthralgias, but no rash , headache, weight change, or psychiatric issues. Physical Examination: Vital Signs: Blood pressure 122/66, pulse 68, respiratory rate 16, temperature 97.2, O2 saturation 9 4%. General: Ms. Ferrera is sitting in a chair beside bed. HEENT: She is normocephalic, atraumatic. Sclerae anicteric. Oropharynx pink and moist. Neck: Supple. Chest: She has diffuse weakness. Neurological: No focal neurological deficits identified. Laboratory Studies: White blood cell count 6.8, hemoglobin 12.2, platelets 173. Blood sugars ranged from 130-210. Sodium 140, potassium 4.8, chloride 110, carbon dioxide 26, BUN 25, creatinine 1.24, prealbumin 16.1, albumin 2.7, magnesium 1.9, calcium 9.3. Urinalysis from the 12th did show extreme turbidity, 3+ glucose, trace ketones, trace blood, 500 esterase, 5-10 red blood cells, greater than 5 0 white blood cells, greater than 50 bacteria and her cultures did grow E. coli that is sensitive to Cipro, nitrofurantoin, Augmentin, cefazolin, ceftriaxone, and piperacillin and tazobactam. She is ma naged by Dr. Mattson and is currently on levofloxacin and now on Macrobid. Medications: Allopurinol 100 mg twice daily, Tylenol 5 mg every 6 hours as needed, [employer] amino a cids 30 mL twice daily, aspirin 81 mg daily, Lipitor 20 mg at bedtime, Bumex 1 mg daily, vitamin D 10 00 units daily, colchicine 0.6 mg daily, gabapentin 600 mg twice daily, that has been increased to he lp with neuropathic pain, meclizine 5 mg 3 times daily, melatonin 3 mg at bedtime, Toprol-XL 50 mg da alexandra, Macrobid 100 mg twice daily, Zofran 4 mg every 6 hours as needed for nausea, Xarelto 15 mg daily , Senokot-S 2 twice daily, noted not given and [place] Thyroid 60 mg daily, zinc 220 mg daily. X-ray/imaging: No new x-rays or imaging. Progress Made With Physical And Occupational Therapy: With physical therapy today, she did perform s orhja-do-azx transfers with standby assistance, multiple cqa-mo-ntghc transfers with contact guard as sistance, multiple fyvvn-mo-wagsc transfers with contact guard assistance. Mobilized a rolling walke r 65 feet twice and 125 feet twice with contact guard assistance. Mobility for wheelchair was 150 fe et independently. With occupational therapy, shower transfer via walker with pivot technique with co ntact guard assistance. Vrt-dw-hgeco multiple times and preparation for transfers done and she demon strated independent upper body dressing, minimum assistance for lower body dressing, moderate assista nce for donning and doffing socks. Assessment: Ms. Ferrera is a 73-year-old patient in the rehabilitation unit with renal injury, acute on chronic, that is being addressed by Dr. Mattson, her primary care physician. She has decreased mobil ity, decreased physical functioning, extreme obesity, hypertension, diabetes mellitus type 2. Plan: She will continue with physical and occupational therapy 3 hours a day, 5 of 7 days. Continue [place] Thyroid for hypothyroidism, Xarelto for anticoagulation and stroke risk reduction along with DVT being addressed. Toprol-XL for heart rate control, meclizine for vertigo, gabapentin for neuropa thic pain, now 600 mg twice daily, colchicine for gout, Lipitor for dyslipidemia, aspirin for stroke risk reduction. She has amino acid for malnutrition. LB/MODL Voice ID: [id number] Report ID: [id number]
--- NOTE | 2024-09-28 01:59 | PN ---
Date of Progress Note: 09/27/2024 Subjective: The patient was seen this morning for followup. She was lying in bed, not in any distre ss. No abdominal pain, nausea, or vomiting. The patient has a longstanding history of right shoulde r pain, and she has been taking Tylenol at home. The pain is getting worse over a period of time. D enies any recent fall or injury. Objective: Vital Signs: Reviewed. HEENT: Unremarkable. Lungs: Clear to auscultation. Heart: Sounds normal. Abdomen: Soft. Bowel sounds normal. No guarding, rigidity, tenderness, or distention. Extremities: No leg edema. Musculoskeletal: Right shoulder has painful limitation of range of motion. Impression: 1.Urinary tract infection. 2.Hypertension. 3.Type 2 diabetes mellitus. 4.Right shoulder pain. 5.Generalized weakness. 6.Debility. Plan: We will continue current antibiotic, which is Macrobid, for urinary tract infection. The janis ent did get her Ozempic injection over the weekend. We will continue diabetes management with slidin g scale insulin. Continue physical therapy under guidance of Dr. Grant and I have advised her maxime t if there is orthopedic surgeon available on-call, we will request consultation for consideration of cortisone injection for her shoulder pain. I will see her tomorrow for followup. AUDRA/MODL Voice ID: [id number] Report ID: [id number]
--- NOTE | 2024-09-28 16:40 | RAD REPORT ---
Exam:Shoulder Right 2+ Views History: Right shoulder pain Findings: No fracture or dislocation seen Bones are osteoporotic. Mild narrowing glenohumeral and AC joints.
[2024-09-28] MEDS: MELATONIN 3 MG TABLET PO PRN (20:24)
--- NOTE | 2024-09-28 20:38 | PN ---
Date of Progress Note: 09/28/2024 Subjective: Patient was seen this morning for followup. No new complaints or problems reported. Sh e was lying in bed. Not in any distress. Objective: Vital Signs: Reviewed. HEENT: Unremarkable. Lungs: Clear to auscultation. Heart: Sounds normal. Abdomen: Soft. Bowel sounds normal. No guarding, rigidity, tenderness, distention. Extremities: No leg edema. Impression: 1.Right shoulder pain. 2.Urinary tract infection. 3.Hypertension. 4.Type 2 diabetes mellitus. 5.Generalized weakness. 6.Debility. Plan: We will go ahead and continue current antibiotic which is nitrofurantoin. Continue current di abetes management. Right shoulder x-ray was ordered and Dr. Garcia from Orthopedic Surgery was consult ed for consideration of intra-articular injection of steroid in her right shoulder for her pain. Con clary physical therapy under guidance of Dr. Grant and I will see her tomorrow for followup. AUDRA/MODL Voice ID: [id number] Report ID: [id number]
--- NOTE | 2024-09-28 21:08 | PN ---
Date of Progress Note: 09/28/2024 Time Of Service: 1:15 p.m. Subjective: Ms. Ferrera is sitting in a chair in her room. She has a friend visiting. She is very h appy with her therapy today. Says knee pain is better. She is mobilizing better, transferring monroe r. Has no new complaints. Objective: No fevers, chills, nausea, vomiting. Mild pain in the knees. She has pain patches as ap propriate. No other problems in terms of subjective complaints. Physical Examination: Vital Signs: Blood pressure is 134/72, pulse is 68, respiratory rate of 16, temperature 97.2, oxygen saturation 95%. General: Ms. Ferrera is sitting in a chair beside the bed. HEENT: She is normocephalic, atraumatic. Sclerae anicteric. Oropharynx moist. Neck: Supple. Chest: Clear. Extremities: No significant clubbing, cyanosis, or edema noted. The patient does have extreme obesity, BMI 49.6. Laboratory Studies: Blood sugars ranged from 155 to 208. X-ray/imaging: No new x-rays or imaging. Medications: Medications have been reviewed and are unchanged. Progress Made With Physical And Occupational Therapy: With physical therapy today, she did multiple lemdbk-da-tmv transfers independently. Multiple nsw-ur-kbmuz transfers with standby assistance. She ambulated with a rolling walker 150 feet twice, 90 feet, and then 125 feet twice with standby assist ance. She mobilized wheelchair 200 feet twice with independence and up and down 3 steps with bilater al handrails with supervision. With occupational therapy, she mobilized from bed to the rolling walk er, and bed to toilet to wheelchair, and did that with supervision. She did have some bilateral shou lder pain and nausea. Pain patch is applied. The patient attributes the pain to moving the wheelcha ir and using a rolling walker, which she had not done previously. Assessment: Ms. Ferrera is a 73-year-old patient in the rehabilitation unit with renal injury, which is improving. She has decreased mobility, decreased physical functioning in addition to hypothyroidi sm, constipation, fibrillation. She is on antibiotics continued for urinary tract infection. She aldridge s beta-andrea on board. Her gabapentin is for neuropathic pain involving the knees. She has colchi cine for gout, vitamin D for low vitamin D level, amino acid for malnutrition, and allopurinol also i s addressing her gout. She does have regular Tylenol as well for pain. Plan: She continues with physical and occupational therapy 3 hours a day, 5 of 7 days. Her comorbid conditions, which have been listed are addressed by continuing medications. She does have again DVT prophylaxis on board. She is followed by Dr. Mattson, her primary care physician, and making adjustmen ts to medications regarding her comorbid conditions. RENAY/TANESHA Voice ID: [id number] Report ID: [id number]
[2024-09-28 23:10] LABS: Sqamous Epithelial <5 /HPF (None Seen); Urine Bacteria <20 /HPF (<20); Urine Bilirubin NEGATIVE (Negative); Urine Blood Negative (Negative); Urine Clarity Turbid (Clear); Urine Color Light-Yellow (Yellow); Urine Culture Reflex Order NOT NEEDED; Urine Glucose NEGATIVE (Negative); Urine Ketones NEGATIVE (Negative); Urine Micro Reflex YN NO BILL MICROSCOPIC; Urine Mucus Slight /HPF (None Seen); Urine Nitrite NEGATIVE (Negative); Urine Protein NEGATIVE (Negative); Urine RBC <5 /HPF (None Seen); Urine Urobilinogen Normal (Normal); Urine WBC <5 /HPF (<5)
[2024-09-29] MEDS ORDERED: HOME MED 1 EA UNK (Ozempic 0.5 MG) SQ SCH (08:00)
[2024-09-29] MEDS: NITROFURAN MACRO 100 MG CAP PO SCH (12:14)
[2024-09-29] MEDS: NYSTATIN PWDR 100000 UNIT/GM TOP SCH (20:22)
--- NOTE | 2024-09-29 21:50 | PN ---
Date of Progress Note: 09/29/2024 Time Of Service: 1:15 p.m. Subjective: Ms. Ferrera is in the room, doing very well. She has no new complaints as knees are doin g well and mobilizing better. Bowel movements are . She is eating well. Objective: No fevers, chills. No myalgias or arthralgias. No other new complaints. Physical Examination: Vital Signs: Blood pressure 123/63, pulse 64, respiratory rate 16, temperature 97.5, oxygen saturati on 95%. General: Ms. Ferrera is sitting in a chair beside the bed. HEENT: She is normocephalic, atraumatic. Sclerae anicteric. Oropharynx pink and moist. Neck: Supple. Chest: Clear. Extremities: No significant clubbing, cyanosis, or edema. Again, the knee pain is improving. Laboratory Studies: Blood sugars ranged from 155 to 214. X-rays Or Imaging: No x-rays or imaging. Medications: Her medications have been reviewed. She does have the Macrobid now 100 mg twice daily for urinary tract infection. She had actually identified in the shower a red area of nonpruritic anna h in the skin fold in the lower abdominal region in the area of the inguinal ligament on both sides. It was a blanching red, non-itching, nonraised rash. Rash is consistent with mild fungal infection and nystatin powder will be applied twice daily. Of course, she will continue on the Macrobid. She also has [place] Thyroid for hypothyroidism. She has Xarelto 15 mg daily as anticoagulation for atria l fibrillation and DVT risk reduction. Progress Made With Physical And Occupational Therapy: With physical therapy today, she did perform s gstat-px-nxm transfers independently, multiple sea-mi-zqzqu transfers done independently. Ambulated 150 feet, 175 feet, another 100 feet twice with independence. Ascended and descended 3 steps with bi lateral handrails with contact guard assistance. Mobilized wheelchair 100 feet twice with independen ce. With occupational therapy, bed to the rolling walker transfer done independently. Performed merary wer transfers by the walker with stand pivot technique with supervision. Did have some right shoulde r more than knee pain during that activity. Performed upper body dressing with independence, lower b amanda dressing with an assistive device with supervision. Assessment: Ms. Ferrera is a 73-year-old patient, admitted to the rehabilitation unit with kidney inj ury, which is improving. She has decreased mobility, decreased physical functioning. She does have mild fungal rash in the skin folds in the lower abdominal region and inguinal regions bilaterally. S he has nystatin in place. Her comorbidities include decreased mobility, decreased physical functioni ng, hypothyroidism, constipation, atrial fibrillation, neuropathic pain, and gout. Plan: She will continue with physical and occupational therapy 3 hours a day, 5 of 7 days. Continue with Macrobid for urinary tract infection. Continue with nystatin powder. Continue [place] Thyroid for hypothyroidism. She has Xarelto for fibrillation and stroke risk reduction, melatonin for insomn ia, beta-andrea Toprol for heart rate control, Lipitor for dyslipidemia, aspirin for stroke risk red uction. RENAY/TANESHA Voice ID: [id number] Report ID: [id number]
--- NOTE | 2024-09-29 22:02 | PN ---
Date of Progress Note: 09/29/2024 Subjective: The patient was seen this morning for followup. She was lying in bed, not in any distre ss. No new complaints or problems reported by her. Objective: Vital Signs: Reviewed. HEENT: Unremarkable. Lungs: Clear to auscultation. Heart: Sounds normal. Abdomen: Soft. Bowel sounds normal. No guarding, rigidity, tenderness, distention. Extremities: No leg edema. Laboratory Data: Right shoulder x-ray shows some changes of arthritis. Impression: 1.Urinary tract infection. 2.Hypertension. 3.Type 2 diabetes mellitus. 4.Osteoarthritis, multiple sites. 5.Generalized weakness. 6.Debility. Plan: We will go ahead and continue current medications. Continue current antibiotic. This morning , when I saw the patient, nurse informed me that Pharmacy did not have nitrofurantoin available in [facility] anymore and I will need to call prescription to the patient's pharmacy, so family can bring it an d we can continue this therapy. After I saw the patient, I did send the prescription to Pharmacy, bu t subsequently nurse told me that hospital pharmacy was able to secure supply, so the patient will co ntinue to receive from the hospital pharmacy. We will continue physical therapy under guidance of Dr Brook Grant. Continue current diabetes management and we will follow up with Dr. Garcia regarding shoulde r pain. AUDRA/MODL Voice ID: [id number] Report ID: [id number]
[2024-09-30 06:25] LABS: Absolute Lymphocytes (CBC) 1.4 K/uL (0.7-4.9); Absolute Monocytes 0.6 K/uL (0.1-1.3); Absolute Neutrophil 3.4 K/uL (1.8-8.0); Basophils % 0.9 % (0-1.3); Hematocrit 37.2 % (36.0-45.0); Lymphocytes % 25.6 % (15.3-44.8); MCH 29.8 pg (27.0-35.0); MCHC 32.2 g/dL (32.0-36.0); MCV 92.5 fL (80-100); MPV 11.8 fL (7.6-11.3); Monocytes % 10.4 % (3.3-12.3); Neutrophils % 63.1 % (41.7-73.7); Nucleated Red Blood Cells % 0.1 % (0-0); Platelets 162 thou/uL (152-406); RBC Red Blood Cell Count 4.03 M/uL (3.86-4.86); Red Cell Distribution Width 14.9 % (12.1-15.2)
[2024-09-30 06:45] LABS: Anion Gap 7.3 mEq/L (5.0-15.0); Magnesium 2.6 mg/dL (1.6-2.4); Potassium 4.3 mEq/L (3.5-5.1); Prealbumin 16.7 mg/dL (20-40)
[2024-09-30 13:23] VITALS: BMI 49.6
--- NOTE | 2024-09-30 21:39 | PN ---
Date of Progress Note: 09/30/2024 Subjective: The patient was seen this morning for followup. No new complaints or problems reported by the patient. This morning, she reported to me that she was having constipation for last 3 to 4 da ys or so as she normally gets it after taking Ozempic, which she took it over the last weekend. I aldridge d a long discussion with her and suggested her to take stool softener as ordered on a daily basis and not to wait until she goes 3 to 4 days without having bowel movement. Even after I had talked to he r and medication was ordered, she decided to not take that medication and she informed me that today, and once again I told her that I do not agree with her decision and she should take this kind of sto ol softener every day as I have suggested, and I am not sure whether she is going to follow this baltazar mmendation or not, but I did inform her about complications related to constipation including diverti culitis type of problem. Objective: Vital Signs: Reviewed. HEENT: Unremarkable. Lungs: Clear to auscultation. Heart: Sounds normal. Abdomen: Soft. Bowel sounds normal. No guarding, rigidity, tenderness, distention. Extremities: No leg edema. Laboratory Data: White count 5.4, hemoglobin 12, platelets 162. Sodium 140, potassium 4.3, chloride 107, bicarb 30, BUN 47, creatinine 1.55, glucose 146. Magnesium 2.6, albumin 3.0. Impression: 1.Generalized weakness. 2.Debility. 3.Constipation. 4.Type 2 diabetes mellitus. 5.Hypertension. 6.Right shoulder pain. Plan: The patient reports that Dr. Garcia from Orthopedic Surgery who was consulted has informed her t hat he will see her on outpatient basis after she gets out of the hospital. For constipation, I have advised her once more that she should take her medication as per order for constipation and I am not sure whether she is going to comply with this recommendation or not. Continue other current diabete s management. Continue physical therapy under guidance of Dr. Grant and I will see her tomorrow f or followup. She is scheduled to go home on Friday, which is day after tomorrow. AUDRA/MODL Voice ID: [id number] Report ID: [id number]
--- NOTE | 2024-10-01 13:33 | P.RH.PN ---
Estimated Length of Stay: 11 Expected Discharge Date: 10/02/24 Discharge Disposition Plan: Home Family Support: Yes Vital Signs: Last Vital Signs Temp 97.1 F 10/01/24 08:00 Pulse 64 10/01/24 08:00 Resp 16 10/01/24 08:00 BP 139/72 10/01/24 08:00 Pulse Ox 95 10/01/24 08:00 Laboratory: Laboratory Last Values WBC 5.40 thou/uL (4.3-10.9) 09/30/24 05:50 RBC 4.03 M/uL (3.86-4.86) 09/30/24 05:50 Hgb 12.0 g/dL (12.0-15.0) 09/30/24 05:50 Hct 37.2 % (36.0-45.0) 09/30/24 05:50 MCV 92.5 fL (80-100) 09/30/24 05:50 MCH 29.8 pg (27.0-35.0) 09/30/24 05:50 MCHC 32.2 g/dL (32.0-36.0) 09/30/24 05:50 RDW 14.9 % (12.1-15.2) 09/30/24 05:50 Plt Count 162 thou/uL (152-406) 09/30/24 05:50 MPV 11.8 fL (7.6-11.3) H 09/30/24 05:50 Neutrophils % 63.1 % (41.7-73.7) 09/30/24 05:50 Lymphocytes % 25.6 % (15.3-44.8) 09/30/24 05:50 Monocytes % 10.4 % (3.3-12.3) 09/30/24 05:50 Eosinophils % 0.0 % (0-4.4) 09/30/24 05:50 Basophils % 0.9 % (0-1.3) 09/30/24 05:50 Absolute Neutrophils 3.4 K/uL (1.8-8.0) 09/30/24 05:50 Absolute Lymphocytes 1.4 K/uL (0.7-4.9) 09/30/24 05:50 Absolute Monocytes 0.6 K/uL (0.1-1.3) 09/30/24 05:50 Absolute Eosinophils 0.0 K/uL (0-0.5) 09/30/24 05:50 Absolute Basophils 0.0 K/uL (0-0.5) 09/30/24 05:50 Sodium 140 mEq/L (136-145) 09/30/24 05:50 Potassium 4.3 mEq/L (3.5-5.1) 09/30/24 05:50 Chloride 107 mEq/L (98-107) 09/30/24 05:50 Carbon Dioxide 30 mEq/L (21-32) 09/30/24 05:50 Anion Gap 7.3 mEq/L (5.0-15.0) 09/30/24 05:50 BUN 47 mg/dL (7-18) H 09/30/24 05:50 Creatinine 1.55 mg/dL (0.55-1.02) H 09/30/24 05:50 Est GFR (CKD-EPI) 35 ml/min (=/>90) L 09/30/24 05:50 Glucose 146 mg/dL (74-106) H 09/30/24 05:50 POC Glucose 197 mg/dL (65-120) H 10/01/24 11:50 Calcium 9.6 mg/dL (8.5-10.1) 09/30/24 05:50 Magnesium 2.6 mg/dL (1.6-2.4) H 09/30/24 05:50 Albumin 3.0 g/dL (3.4-5.0) L 09/30/24 05:50 Prealbumin 16.7 mg/dL (20-40) L 09/30/24 05:50 Urine Color Light-yellow (Yellow) 09/28/24 22:25 Urine Clarity Turbid (Clear) H 09/28/24 22:25 Urine pH 5.0 (5.0-7.0) 09/28/24 22:25 Ur Specific [place] 1.010 (1.005-1.030) 09/28/24 22:25 Glucose (UA)(Auto) Negative (Negative) 09/28/24 22:25 Urine Ketones Negative (Negative) 09/28/24 22:25 Urine Blood Negative (Negative) 09/28/24 22:25 Urine Nitrite Negative (Negative) 09/28/24 22: Urine Bilirubin Negative (Negative) 09/28/24 22:25 Urine Urobilinogen Normal (Normal) 09/28/24 22:25 Ur Leukocyte Esterase 75 Ghada/uL (Negative) H 09/28/24 22:25 Urine RBC <5 /HPF (None Seen) 09/28/24 22:25 Urine WBC <5 /HPF (<5) 09/28/24 22:25 Ur Squamous Epith Cells <5 /HPF (None Seen) 09/28/24 22:25 U Non-Squamous Epi Cells <5 /HPF (None Seen) 09/28/24 22:25 Ur Transition Epith Cell <5 /HPF (None Seen) 09/23/24 14:52 Urine Bacteria <20 /HPF (<20) 09/28/24 22:25 Hyaline Casts 10-20 /LPF (None Seen) H 09/28/24 22:25 Urine Mucus Slight /HPF (None Seen) 09/28/24 22:25 Urine Culture Reflexed Not needed 09/28/24 22:25 Urine Total Protein Negative (Negative) 09/28/24 22:25 Weight: 326 lb 8 oz Wound Present: Yes Closed Surgical Incision Present: No Negative Pressure Wound Therapy Present: No Physician Update: Still has pain in the right shoulder,n treated with Voltaren. Labs are stable. Independent with WC 250' and RW 150' and 6 stairs with SBA. Met all OT goals. Independent with showers with setup. All other ADLs are independent. Comment: bilast lymphedema . has chronic wnd to rt . [facility] consult made. 09/30: Healed per Nany [facility] RN. Summary: Patient's care plan and prison goals have been reviewed and revised as necessary. Please see the Rehabilitation Signature page for all necessary signatures.
[2024-10-01 19:06] VITALS: TEMP 97.7
--- NOTE | 2024-10-01 20:41 | DS ---
Date of Progress Note: 10/01/2024 The patient was seen this morning for followup. No new complaints or problems reported by the patient. She did have a bowel movement yesterday and today. No abdominal pain. No nausea, vomiting. No chest pain. No shortness of breath. Objective: Vital Signs: Reviewed. HEENT: Unremarkable. Lungs: Clear to auscultation. Heart: Sounds normal. Abdomen: Soft. Bowel sounds normal. No guarding, rigidity, tenderness, distention. Extremities: No leg edema. Discharge Medications And Instructions: Continue all prior home medications except following changes: 1. Stop spironolactone. 2. Stop Bumex, that is bumetanide. 3. Stop losartan. 4. Take ciwr-feg-msyuvhl Senokot-S, take 2 tablets by mouth daily, and I have instructed the patient either to increase the dose to 2 tablets 2 times a day if she still has constipation or reduce the dose to 1 tablet daily if she ends up having diarrhea type of problem. 5. Nitrofurantoin 100 mg 2 times a day for 3 days, and she has this prescription at home. 6. Follow up at my office week after next. 7. Follow up with Dr. Back at [facility] as per his instruction. Discharge Diagnoses: 1. Congestive heart failure, chronic, diastolic. 2. Chronic kidney disease, stage 3B. 3. Debility. 4. Generalized weakness. 5. Diabetes mellitus, uncontrolled. 6. Diabetes mellitus with peripheral vascular disease. 7. Diabetes mellitus with chronic kidney disease. 8. Rheumatoid arthritis. 9. Anemia due to chronic kidney disease. 10. Paroxysmal atrial fibrillation. 11. Hypothyroidism. 12. Hyperlipidemia. 13. Lymphedema of legs. 14. Right leg wound. Hospital Course: This is a 73-year-old female patient who was admitted to initially medical floor with volume depletion and acute kidney injury, and subsequently she was brought to inpatient rehab on 09/23/2024. While she was on rehab floor she received physical therapy under guidance of Dr. Grant. Medical problems remained stable. Ever since she was admitted to the hospital on medical floor, we have discontinued her diuretic therapy and losartan, and there is a good possibility she may not need those therapy, but if she does, we will consider to restart in the future on outpatient basis and I have discussed those details with her as well. Dr. Back managed her right leg wound problem with special dressing instructions. She did have urinary tract infection and as per culture and sensitivity result, nitrofurantoin was started. Overall, her condition has improved well enough in order for her to go home. The patient was told to make sure to schedule her appointment at [facility] as per instruction from Dr. Back and also follow up at my office a week after next. Total time spent, 40 minutes. AUDRA/TANESHA Voice ID: [id number] Report ID: [id number] CELY
[2024-10-02 05:06] VITALS: BP 128/68
[2024-10-02] MEDS: OZEMPIC 0.5 MG SQ SCH (08:27)
== END 2024-10-02 12:00 | disposition home health service (06) | DRG 948 ==
LOC: 5TH 10:20
PROVIDERS: ADMIT Internal Medicine; ATTEND Internal Medicine
DX: R53.81 Other malaise (principal); I13.0 Hypertensive heart and chronic kidney disease with heart failure and stage 1 through stage 4 chronic kidney disease, or unspecified chronic kidney disease; I50.32 Chronic diastolic (congestive) heart failure; N17.9 Acute kidney failure, unspecified; Z68.43 Body mass index [BMI] 50.0-59.9, adult; N39.0 Urinary tract infection, site not specified; E11.22 Type 2 diabetes mellitus with diabetic chronic kidney disease; E11.65 Type 2 diabetes mellitus with hyperglycemia; N18.32 Chronic kidney disease, stage 3b; I48.0 Paroxysmal atrial fibrillation; E03.9 Hypothyroidism, unspecified; E78.5 Hyperlipidemia, unspecified; I73.9 Peripheral vascular disease, unspecified; I89.0 Lymphedema, not elsewhere classified; M10.9 Gout, unspecified; E66.01 Morbid (severe) obesity due to excess calories; M15.9 Polyosteoarthritis, unspecified; M25.511 Pain in right shoulder; E11.51 Type 2 diabetes mellitus with diabetic peripheral angiopathy without gangrene; M06.9 Rheumatoid arthritis, unspecified; D63.1 Anemia in chronic kidney disease
CPT/HCPCS: 29581; 36415; 80048; 81001; 82040; 82947; 83735; 84134; 85025; 87077; 87086; 87088; 87186; 97110; 97116; 97163; 97165; 97530; 97542; J8597